=== PATIENT | male | born 1955 | race African-American/Black ===

== ENCOUNTER 2016-03-13 22:36 | Emergency (ER) | payer MEDICARE, MEDICAID ==
[2016-03-13] MEDS ORDERED: LORAZEPAM 1 MG TABLET PO ONE (23:23)
--- NOTE | 2016-03-13 23:23 | ER Document Report ---
ED General - General TRAVEL OUTSIDE OF THE [place] IN LAST 30 DAYS: No <RAJIV DANIELLE - Last Filed: 03/14/16 02:06> <DREA KILGORE - Last Filed: 03/14/16 11:32> - General Chief Complaint: Headache Stated Complaint: BLOOD PRESSURE PROBLEMS Notes: Patient is a 60 -year-old male who initially complains of a headache. When I go to talk to the patient he actually has other complaints. Patient says that he's been very stressed and anxious. He says he has psychiatric illness and is felt very unwell. He says that he broke up with his girlfriend today. He's had a terrible day. He says that he is having thoughts of suicide. He has not been taking his medications. He says the reason why he has a headache is because he is very stressed and anxious. He does not airway his blood pressure medications are. He denies any actual suicide attempts. He says that he needs help in regards to his severe anxiety and depression. No focal weakness or numbness. No fevers. No recent infections. No other complaints at this time. (RAJIV DANIELLE) - Related Data Allergies/Adverse Reactions: No Known Allergies Allergy (Verified 02/16/16 13:03) Past Medical History - Social History Smoking Status: Unknown if Ever Smoked Frequency of alcohol use: None Drug Abuse: None Family History: Reviewed & Not Pertinent Patient has suicidal ideation: No Patient has homicidal ideation: No - Past Medical History Cardiac Medical History: Reports: Hx Hypertension Pulmonary Medical History: Denies: Hx COPD Neurological Medical History: Denies: Hx Seizures Renal/ Medical History: Reports: Hx Kidney Stones Psychiatric Medical History: Reports: Hx Schizophrenia Past Surgical History: Reports: Hx Cholecystectomy, Hx Kidney (Renal Surgery) - Immunizations Hx Diphtheria, Pertussis, Tetanus Vaccination: No <RAJIV DANIELLE - Last Filed: 03/14/16 02:06> Review of Systems <RAJIV DANIELLE - Last Filed: 03/14/16 02:06> <DREA KILGORE - Last Filed: 03/14/16 11:32> - Review of Systems Notes: My Normal Review Basic REVIEW OF SYSTEMS: CONSTITUTIONAL : Denies fever, chills, or sweats. Denies recent illness. EENT: Denies eye, ear, throat, or mouth pain or symptoms. Denies nasal or sinus congestion. CARDIOVASCULAR: Denies chest pain. RESPIRATORY: Denies cough, cold, or chest congestion. Denies shortness of breath, difficulty breathing, or wheezing. GASTROINTESTINAL: Denies abdominal pain. Denies nausea, vomiting, or diarrhea. Denies constipation. Last BM: GENITOURINARY: Denies difficulty urinating, painful urination, burning, frequency, or blood in urine. MUSCULOSKELETAL: Denies neck or back pain or joint pain or swelling. SKIN: Denies rash or skin lesions. NEUROLOGICAL: Denies altered mental status or loss of consciousness. Has a headache. Denies weakness or paralysis or loss of use of either side. Denies problems with gait or speech. Denies sensory or motor loss. Psychiatric: Severe depression, severe anxiety, suicidal ideations. ALL OTHER SYSTEMS REVIEWED AND NEGATIVE. (RAJIV DANIELLE) Physical Exam <RAJIV DANIELLE - Last Filed: 03/14/16 02:06> <DREA KILGORE - Last Filed: 03/14/16 11:32> - Vital signs Vitals: Temp Pulse Resp BP Pulse Ox 97.8 F 61 16 170/93 H 97 03/13/16 22:48 03/13/16 22:48 03/13/16 22:48 03/13/16 22:48 03/13/16 22:48 (RAJIV DANIELLE) (DREA KILGORE) - Notes Notes: General Appearance: Well nourished, alert, cooperative, no acute distress, no obvious discomfort. Very anxious. Patient is shaking from stress and anxiety. He's grinding his teeth during exam. Vitals: reviewed, See vital signs table. Head: no swelling or tenderness to the head Eyes: PERRL, EOMI, Conjuctiva clear Mouth: No decreasd moisture Neck: Supple, no neck tenderness, No thyromegaly Lungs: No wheezing, No rales, No rhonci, No accessory muscle use, good air exchange bilaterally. Heart: Normal rate, Regular rythm, No murmur, no rub Abdomen: Normal BS, soft, No rigidity, No abdominal tenderness, No guarding, no rebound, no abdominal masses, no organomegaly Extremities: strength 5/5 in all extremities, good pulses in all extremities, no swelling or tenderness in the extremities, no edema. Skin: warm, dry, appropriate color, no rash Neuro: speech clear, oriented x 3, normal affect, responds appropriately to questions. Cranial nerves II through XII are intact. Patient saw extremities without difficulty. No focal neurologic deficits on exam. (RAJIV DANIELLE) Course - Laboratory Result Diagrams: 03/13/16 23:48 03/13/16 23:48 <RAJIV DANIELLE - Last Filed: 03/14/16 02:06> - Laboratory Result Diagrams: 03/13/16 23:48 03/13/16 23:48 <DREA KILGORE - Last Filed: 03/14/16 11:32> - Vital Signs Vital signs: Temp Pulse Resp BP Pulse Ox 97.8 F 76 16 154/87 H 97 03/14/16 08:06 03/14/16 08:06 03/14/16 08:06 03/14/16 08:06 03/14/16 08:06 (RAJIV DANIELLE) (DREA KILGORE) - Laboratory Laboratory results interpreted by me: 03/13/16 03/13/16 23:48 23:48 RDW 14.3 H AST 63 H ALT 101 H Salicylates < 1.0 L Acetaminophen < 10 L (DREA KILGORE) - EKG Interpretation by Me Additional EKG results interpreted by me: 03/13/16 23:50 EKG is reviewed and interpreted by me. EKG shows normal sinus rhythm with rate of [address] segment elevation or depression. No ischemic T wave inversions. MI interval, QRS duration, QTC levels are within normal range. Old EKG for comparison is from 02/18/2016. (RAJIV DANIELLE) - Transfer of Care Notes: 03/14/16 02:06 Patient is medically stable for psychiatric evaluation. Patient has severe anxiety and severe depression. He does admit to some suicidal thoughts; however , says that he does not feel he is a capacity to actually kill himself. Patient is showing some improvement after the Ativan. (RAJIV DANIELLE) Discharge <RAJIV DANIELLE - Last Filed: 03/14/16 02:06> <DREA KILGORE - Last Filed: 03/14/16 11:32> - Discharge Clinical Impression: Anxiety, Depression, Schizo affective schizophrenia Condition: Stable Disposition: HOME, SELF-CARE Additional Instructions: Schizophrenia Schizophrenia is a chemical disorder that affects how the brain functions. The exact cause is unknown, but it tends to run in families. It is NOT caused by emotional trauma. Schizophrenia causes disordered thinking, including unusual beliefs and inability to "process" happenings around the patient. Patients with schizophrenia benefit greatly from medicine. These medicines are called antipsychotics. Never stop the medicine without the doctor 's approval. Counselling may help the patient deal with his disease. Schizophrenics require a very ordered environment. Stresses and sudden changes may bring out symptoms. Drugs and alcohol abuse may become problems. Contact the counsellor or crisis line if there are thoughts of suicide or of harming others, or if you become aware of unusual thoughts or beliefs DEPRESSION: Your evaluation reveals that you have mental depression. While symptoms may be vague, they often include disturbance of sleep, fatigue, loss of appetite , and general loss of interest in life. While depression may be a side effect of drugs, or a reaction to a major change in your life, many cases have no known cause. If depression is acute, and related to a major loss in your life, you can expect it to clear completely with time. If you have been depressed a long time , are prone to repeated bouts of depression or low mood, or have been thinking of suicide, get help. Depression can be treated with anti-depressant medication and counselling. Long-term depression will often take a few weeks to clear, even with appropriate medication. Follow-up care is important. SUICIDAL IDEATION: Suicidal ideation is a common medical term for thoughts about suicide, which may be as detailed as a formulated plan, without the suicidal act itself. Although most people who undergo suicidal ideation do not commit suicide, some go on to make suicide attempts. The range of suicidal ideation varies greatly from fleeting to detailed planning, role playing, and unsuccessful attempts. While thoughts about suicide are common, most people do not carry out serious actions to commit suicide. Based upon your evaluation and discussion with you, we do not believe you are currently at risk to act upon your thoughts of suicide. You have agreed to return to the Emergency Department, at any time , if you feel inclined to act upon your suicidal thoughts. FOLLOW-UP CARE: If you have been referred to a physician for follow-up care, call the physician s office for an appointment as you were instructed or within the next two days. If you experience worsening or a significant change in your symptoms, notify the physician immediately or return to the Emergency Department at any time for re-evaluation. Follow-up with [facility] today. Referrals: [facility] [Provider Group] - Follow up as needed
[2016-03-14 00:04] LABS: ABSOLUTE BASOPHILS # (AUTO) 0.1 10^3/uL (0.0-0.2); ABSOLUTE EOSINOPHILS # (AUTO) 0.2 10^3/uL (0.0-0.6); ABSOLUTE LYMPHOCYTES (AUTO) 2.2 10^3/uL (0.5-4.7); ABSOLUTE MONOCYTES (AUTO) 0.8 10^3/uL (0.1-1.4); ABSOLUTE NEUT (AUTO) 4.3 10^3/uL (1.7-8.2); BASOPHILS % (AUTO) 0.8 % (0-2); EOSINOPHILS % (AUTO) 3.2 % (0-6); HEMATOCRIT 41.7 % (37.9-51.0); HEMOGLOBIN 14.5 g/dL (13.5-17.0); HGB HCT DIFFERENCE 1.8; LYMPHOCYTES % (AUTO) 28.3 % (13-45); MEAN CORPUSCULAR HEMOGLOBIN 31.3 pg (27.0-33.4); MEAN CORPUSCULAR HGB CONC 34.9 g/dL (32.0-36.0); MEAN CORPUSCULAR VOLUME 90 fl (80-97); MONOCYTES % (AUTO) 11.2 % (3-13); RED BLOOD COUNT 4.65 10^6/uL (4.35-5.55); RED CELL DISTRIBUTION WIDTH 14.3 % (11.5-14.0); SEGMENTED NEUTROPHILS % (AUTO) 56.5 % (42-78); WHITE BLOOD COUNT 7.6 10^3/uL (4.0-10.5)
[2016-03-14 00:14] LABS: ALANINE AMINOTRANSFERASE 101 U/L (21-72); ALBUMIN 4.3 g/dL (3.5-5.0); ALKALINE PHOSPHATASE 95 U/L (38-126); ANION GAP 13 (5-19); ASPARTATE AMINO TRANSFERASE 63 U/L (17-59); BILIRUBIN,TOTAL 0.6 mg/dL (0.2-1.3); BLOOD UREA NITROGEN 11 mg/dL (7-20); CALCIUM 9.3 mg/dL (8.4-10.2); CARBON DIOXIDE 22 mmol/L (22-30); CHLORIDE 103 mmol/L (98-107); CREATININE RESULT 0.93 mg/dL (0.52-1.25); GLUCOSE 102 mg/dL (75-110); SODIUM 138.2 mmol/L (137-145)
[2016-03-14 00:15] LABS: ALCOHOL < 10 mg/dL (NONE DETECTED)
[2016-03-14 00:29] LABS: APPEARANCE,URINE CLEAR; BILIRUBIN,URINE NEGATIVE (NEGATIVE); GLUCOSE, URINE NEGATIVE (NEGATIVE); KETONES,URINE NEGATIVE (NEGATIVE); LEUKOCYTE ESTERASE,URINE NEGATIVE (NEGATIVE); NITRITE,URINE NEGATIVE (NEGATIVE); PROTEIN,URINE NEGATIVE (NEGATIVE); URINE SPECIFIC GRAVITY 1.003; UROBILINOGEN,URINE NEGATIVE mg/dL (<2.0)
[2016-03-14 00:42] LABS: URINE BARBITURATES SCREEN NEGATIVE; URINE METHADONE SCREEN NEGATIVE; URINE PHENCYCLIDINE SCREEN NEGATIVE
--- NOTE | 2016-03-14 10:13 | ER Document Report ---
Doctor's Note Notes: 03/14/16 10:10 Rounds: Chart reviewed and patient interview. Patient seems to be rather anxious. However, he is mentally clear and alert and talkative, answering questions appropriately. Patient is being evaluated for depression and suicidal thoughts as well as feeling very stressed and anxious. Patient has medications for these conditions at home. Has a history of high blood pressure. Blood pressure this morning is 154/87 on no medicines for blood pressure since arrival here. Lab studies show very minimal, likely clinically insignificant LFT elevation which could be related to medications, alcohol, viral illness, etc. Patient appears to be medically stable for transfer or discharge. I am told that mental health will likely recommend discharging the patient. Patient says he would like to go to [facility]. Huber Salazar M.D. 03/14/16 11:32 Mental health has assessed the patient feels that he can be treated as an outpatient at [facility]. This is his eighth or more visits here in the past 7 or 8 months, all of them having somewhat similar theme. Even though patient expresses a preference for going to be admitted at [facility], mental health believes that he can be managed as an outpatient and is not a danger of risk to himself or others. Huber Salazar M.D.
--- NOTE | 2016-03-14 10:21 | PSYCHOLOGICAL NOTE ---
Psych Note - Psych Note Psych Note: Patient is a 60 year old male who presented last night via EMS with c/o headache and anxiety. Patient is well known to this clinician and this Department for multiple prior episodes. Patient this morning states he is here because he has no one to talk to. Patient states yesterday he had to go to [employer] and ask to speak with the Digital Advertising Analyst because he was alone and needed to talk. Patient states he feels better this morning. Patient states it helped to talk. Patient endorses continued treatment via [facility]. Patient denies contacting them for assistance yesterday. Patient states 2015 was a difficult year, and that it was difficult due to his own choices, to include watching pornography. Patient states he began engaging with this habit around 1 month ago. Patient states he is a grown man, and has sexual needs. He states the last time he had sex was 1996 with prostitutes. Patient reports he would be "ok" if he had someone to talk to. He states someone can be in the same room, but not really listening. Patient encouraged to contact his ACTT provider during these instances. Patient denies wanting to harm himself or anyone else. Patient denies feeling like he cannot return to his home. Note this is significant because in the past he will be paranoid about something going on his apartment and refuse to return. Patient does talk about his past few weeks and his increase in depressive symptoms, to include not caring for himself (food, hygiene, etc); however, states he has come out of that stage and has been caring for himself. Patient requests a male crayon sawyer bedside. Patient denies suicidal/homicidal ideations. Patient reports he has his medications, and is willing to contact his [facility] [employer]. Patient is A&O. Mood is hypomanic with congruent affect. Patient denies suicidal/homicidal ideations, intent, plan, or means. Patient denies A/V H. Thought processes were mostly organized. Conversational speech was WNL for this patient (quiet/soft). Intellectual abilities were estimated within average range. Attention and focus were fair. Insight, judgment, and impulse control were fair. 295.70 (F25.0) Schizoaffective Disorder, Bipolar Type by history 799.59 (R41.9) Unspecified Neurocognitive Disorder Patient's presenting symptoms are similar to that of a neurocognitive disorder and cause clinically significant distress in all domains of his life At this time and in this setting (ER) there is not enough information to make a more specific diagnosis (head CT suggestive of age related involutional changes) Patient is psychiatrically cleared for discharge. Patient is considered to be at his baseline functioning, and denies wanting to harm anyone or himself. Patient is again encouraged to follow up with Neurology. Patient is encouraged to continue to engage in his ACTT services and utilize them when he needs to talk. While discussing with patient his plan of care, patient disclosed he is "in a bad spot" and wants to go to [place]. Discussed with patient that he can chose to do so voluntarily, possibly via his ACT Team; however, the purpose of the ED is to pursue inpatient for IVC status patients. Note, patient is voluntary. Discussed with patient his numerous prior episodes, most of which document his attempts at sabotaging his discharge by reporting SI or making vague statements regarding his safety upon discharge. Note, this is well documented throughout patient's chart from October 03, 2015. I consulted with Dr. Null in regards to the care and management of this patient.
[2016-03-14] MEDS ORDERED: OLANZAPINE 5 MG TABLET PO ONE (10:39)
[2016-03-14 11:40] VITALS: BP 150/82
--- NOTE | 2016-03-14 13:43 | EKG REPORT ---
SEVERITY:- BORDERLINE ECG - SINUS RHYTHM BORDERLINE T ABNORMALITIES, INFERIOR LEADS : Confirmed by: Alisson Andrade MD 14-Mar-2016 13:42:07
== END 2016-03-14 11:37 | disposition home or self-care (01) ==
LOC: ER 22:36
DX: F32.9 Major depressive disorder, single episode, unspecified (principal); F41.9 Anxiety disorder, unspecified; F25.9 Schizoaffective disorder, unspecified; R45.851 Suicidal ideations; F43.9 Reaction to severe stress, unspecified; I10 Essential (primary) hypertension; R79.89 Other specified abnormal findings of blood chemistry; R51 Headache; Z91.14 Patient's other noncompliance with medication regimen
CPT/HCPCS: 93005; 99285; 36415; 80307 ×4; 85025; 80053; 81001; 93010; A9270 ×2

== ENCOUNTER 2016-03-19 04:40 | Emergency (ER) | payer MEDICARE, MEDICAID ==
[2016-03-19] MEDS ORDERED: LORAZEPAM 1 MG TABLET PO ONE (06:16)
[2016-03-19] MEDS ORDERED: IBUPROFEN 800 MG TABLET PO ONE (06:16)
--- NOTE | 2016-03-19 06:39 | ER Document Report ---
ED General - General Chief Complaint: Headache Stated Complaint: HEADACHE Mode of Arrival: Ambulatory Information source: Patient Notes: 60 yr old male presents with hx of anxiety depression and htn with complaints of headache and feeling anxious. pt notes that he does not take his bp meds the way he is supposed ot, notes he does not know which one it is. pt did not take his bp at home, felt anxious, didnt have tylenol and wanted to come in to get tylenol. Pt denies this being the worst headache, denies any neuro deficits. TRAVEL OUTSIDE OF THE [place] IN LAST 30 DAYS: No - HPI Onset: Other - 3 day duration Onset/Duration: Persistent Quality of pain: Pressure Severity: Mild Pain Level: 1 Associated symptoms: Headache Exacerbated by: Denies Relieved by: Denies Similar symptoms previously: Yes Recently seen / treated by doctor: Yes - Related Data Allergies/Adverse Reactions: No Known Allergies Allergy (Verified 02/16/16 13:03) Past Medical History - Social History Smoking Status: Unknown if Ever Smoked Cigarette use (# per day): No Chew tobacco use (# tins/day): No Smoking Education Provided: No Family History: Reviewed & Not Pertinent Patient has suicidal ideation: No Patient has homicidal ideation: No - Past Medical History Cardiac Medical History: Reports: Hx Hypertension Pulmonary Medical History: Denies: Hx COPD Neurological Medical History: Denies: Hx Seizures Renal/ Medical History: Reports: Hx Kidney Stones. Denies: Hx Peritoneal Dialysis Psychiatric Medical History: Reports: Hx Schizophrenia Past Surgical History: Reports: Hx Cholecystectomy, Hx Kidney (Renal Surgery) - Immunizations Hx Diphtheria, Pertussis, Tetanus Vaccination: No Review of Systems - Review of Systems Notes: REVIEW OF SYSTEMS: CONSTITUTIONAL : Denies fever, chills, or sweats. Denies recent illness. EENT: Denies eye, ear, throat, or mouth pain or symptoms. Denies nasal or sinus congestion or discharge. Denies throat, tongue, or mouth swelling or difficulty swallowing. CARDIOVASCULAR: Denies chest pain. Denies palpitations or racing or irregular heart beat. Denies ankle edema. RESPIRATORY: Denies cough, cold, or chest congestion. Denies shortness of breath, difficulty breathing, or wheezing. GASTROINTESTINAL: Denies abdominal pain or distention. Denies nausea, vomiting , or diarrhea. Denies blood in vomitus, stools, or per rectum. Denies black, tarry stools. Denies constipation. GENITOURINARY: Denies difficulty urinating, painful urination, burning, frequency, blood in urine, or discharge. MUSCULOSKELETAL: Denies back or neck pain or stiffness. Denies joint pain or swelling. SKIN: Denies rash, lesions or sores. HEMATOLOGIC : Denies easy bruising or bleeding. LYMPHATIC: Denies swollen, enlarged glands. NEUROLOGICAL: Admits to mild headache PSYCHIATRIC: Admits to anxiety ALL OTHER SYSTEMS REVIEWED AND NEGATIVE. Dictation was performed using [employer] voice recognition software PHYSICAL EXAMINATION: GENERAL: Well-appearing, well-nourished and in no acute distress. HEAD: Atraumatic, normocephalic. EYES: Pupils equal round and reactive to light, extraocular movements intact, sclera anicteric, conjunctiva are normal. ENT: Nares patent, oropharynx clear without exudates. Moist mucous membranes. NECK: Normal range of motion, supple without lymphadenopathy LUNGS: Breath sounds clear to auscultation bilaterally and equal. No wheezes rales or rhonchi. HEART: Regular rate and rhythm without murmurs ABDOMEN: Soft, nontender, nondistended abdomen. No guarding, no rebound. No masses appreciated. Musculoskeletal: Normal range of motion, no pitting or edema. No cyanosis. NEUROLOGICAL: Cranial nerves grossly intact. Normal speech, normal gait. Normal sensory, motor exams PSYCH: Patient appears anxious SKIN: Warm, Dry, normal turgor, no rashes or lesions noted. Physical Exam - Vital signs Vitals: Temp Pulse Resp BP Pulse Ox 98.4 F 97 23 H 174/104 H 99 03/19/16 04:48 03/19/16 04:48 03/19/16 04:48 03/19/16 04:48 03/19/16 04:48 Course - Re-evaluation Re-evalutation: 03/19/16 06:[address] of the head was ordered given patient's presenting complaint of headache however the patient himself admits that this is a mild headache and he just wishes to have Tylenol. Denies any neurological deficits. It appears patient is issues are more psychiatric in nature, his blood pressure is stable at this time. Patient will be treated for his headache and anxiety 03/19/16 06:59 Patient symptoms have improved significantly, I will discharge home at this time After performing a Medical Screening Examination, I estimate there is LOW risk for ACUTE GLAUCOMA, TEMPORAL ARTERITIS, MENINGITIS, INCRANIAL HEMORRHAGE, or ISCHEMIC STROKE thus I consider the discharge disposition reasonable. The patient and I have discussed the diagnosis and risks, and we agree with discharging home with close follow-up with the understanding that symptoms and presentations can change. We also discussed returning to the Emergency Department immediately if new or worsening symptoms occur. We have discussed the symptoms which are most concerning (e.g., changing or worsening symptoms, new numbness or weakness, vomiting, fever) that necessitate immediate return. - Vital Signs Vital signs: Temp Pulse Resp BP Pulse Ox 98.4 F 97 23 H 174/104 H 99 03/19/16 04:48 03/19/16 04:48 03/19/16 04:48 03/19/16 04:48 03/19/16 04:48 Discharge - Discharge Clinical Impression: Anxiety Headache Qualifiers: Headache type: unspecified Headache chronicity pattern: episodic headache Intractability: not intractable Qualified Code(s): R51 - Headache HTN (hypertension) Qualifiers: Hypertension type: essential hypertension Qualified Code(s): I10 - Essential ( primary) hypertension Condition: Stable Disposition: HOME, SELF-CARE Instructions: Headache ([facility]) Additional Instructions: Follow up with your physician tomorrow for further care or return to the ED IMMEDIATELY if symptoms worsen or new concerns occur
[2016-03-19] MEDS ORDERED: CLONIDINE HCL 0.1 MG TABLET PO ONE (07:00)
[2016-03-19 07:42] VITALS: BP 161/87
== END 2016-03-19 07:48 | disposition home or self-care (01) ==
LOC: ER 04:40
DX: R51 Headache (principal); I10 Essential (primary) hypertension; Z91.14 Patient's other noncompliance with medication regimen; F41.9 Anxiety disorder, unspecified
CPT/HCPCS: 99283; A9270 ×3

== ENCOUNTER 2016-03-24 07:27 | Emergency (ER) | payer MEDICARE, MEDICAID ==
--- NOTE | 2016-03-24 08:30 | ER Document Report ---
ED Psych Disorder / Suicide - General Mode of Arrival: Ambulatory Information source: Patient TRAVEL OUTSIDE OF THE U[place] IN LAST 30 DAYS: No - HPI Patient complains to provider of: Other - Depression Onset: Other - since 2016 Suicide Risk Factors: Depressed, Male Associated symptoms: Other - see above <SHELTON MONTERO - Last Filed: 03/24/16 08:22> <TOMMY HARRISON - Last Filed: 03/24/16 15:01> - General Chief Complaint: Psych Problem Stated Complaint: SUICIDAL IDEATIONS Notes: 60 year old male with history of depression presents to the ED complaining of difficulty sleeping and depression. Patient states that his depression started in 2016 and has been seeing Dr. Raygoza in [place] for "15 minute psychiatric" evaluations, but states that it isn't helping. Patient explains that he needs psychiatric help "right away." Patient states that he is going up to random strangers and talking to them about her depression, breaking up with his girlfriend, and pornography. Patient states that he "feels very dangerous." ( SHELTON MONTERO) - Related Data Allergies/Adverse Reactions: No Known Allergies Allergy (Verified 02/16/16 13:03) Past Medical History - General Information source: Patient - Social History Smoking Status: Unknown if Ever Smoked Family History: Reviewed & Not Pertinent - Past Medical History Cardiac Medical History: Reports: Hx Hypertension Renal/ Medical History: Reports: Hx Kidney Stones Psychiatric Medical History: Reports: Hx Depression, Hx Schizophrenia Past Surgical History: Reports: Hx Cholecystectomy, Hx Kidney (Renal Surgery) - Immunizations Hx Diphtheria, Pertussis, Tetanus Vaccination: No <SHELTON MONTERO - Last Filed: 03/24/16 08:22> Review of Systems - Review of Systems Constitutional: No symptoms reported EENT: No symptoms reported Cardiovascular: No symptoms reported Respiratory: No symptoms reported Gastrointestinal: No symptoms reported Genitourinary: No symptoms reported Male Genitourinary: No symptoms reported Musculoskeletal: No symptoms reported Skin: No symptoms reported Hematologic/Lymphatic: No symptoms reported Neurological/Psychological: See HPI, Depression, Anxiety, Other - Difficulty sleeping -: Yes All other systems reviewed and negative <SHELTON MONTERO - Last Filed: 03/24/16 08:22> Physical Exam - General General appearance: Alert, Anxious, Other - Unable to sit still. In distress: None - HEENT Head: Normocephalic, Atraumatic Eyes: Normal Extraocular movements intact: Yes Pupils: PERRL - Respiratory Respiratory status: No respiratory distress Breath sounds: Normal - Cardiovascular Rhythm: Regular Heart sounds: Normal auscultation - Abdominal Inspection: Normal - Back Back: Normal - Extremities General upper extremity: Normal inspection, Normal ROM General lower extremity: Normal inspection, Normal ROM - Neurological Neuro grossly intact: Yes - Psychological Associated symptoms: Anxious - Skin Skin Temperature: Warm Skin Moisture: Dry Skin Color: Normal <SHELTON MONTERO - Last Filed: 03/24/16 08:22> Course <SHELTON MONTERO - Last Filed: 03/24/16 08:22> - Laboratory Result Diagrams: 03/24/16 07:45 03/24/16 07:45 - EKG Interpretation by Fl EKG shows normal: Sinus rhythm, [place], Intervals, QRS Complexes. abnormal: ST-T Waves - Nonspecific lateral T abnormalities Rate: Normal Rhythm: NSR <TOMMY HARRISON - Last Filed: 03/24/16 15:01> - Re-evaluation Re-evalutation: 03/24/16 14:54 See the psychology report. The patient did have what appeared to be involuntary twitching initially which seems to have resolved after the Cogentin. This was suggested he has been noncompliant with his medications. (TOMMY HARRISON) - Vital Signs Vital signs: Temp Pulse Resp BP Pulse Ox 97.9 F 76 20 140/84 H 97 03/24/16 12:00 03/24/16 12:00 03/24/16 12:00 03/24/16 12:00 03/24/16 12:00 - Laboratory Laboratory results interpreted by me: 03/24/16 03/24/16 07:45 07:45 Chloride 110 H Carbon Dioxide 17 L Urine Blood SMALL H Salicylates < 1.0 L Acetaminophen < 10 L Discharge <SHELTON MONTERO - Last Filed: 03/24/16 08:22> <TOMMY HARRISON - Last Filed: 03/24/16 15:01> - Discharge Clinical Impression: Anxiety Condition: Stable Disposition: HOME, SELF-CARE Additional Instructions: FOLLOW UP WITH YOUR ACT TEAM THIS WEEK. Referrals: BRYANNA PERSON MD [Primary Care Provider] - Follow up as needed Scribe Attestation: 03/24/16 14:52 I personally performed the services described in the documentation, reviewed and edited the documentation which was dictated to the scribe in my presence, and it accurately records my words and actions. (TOMMY HARRISON) Scribe Documentation - Scribe Written by Scrsvetlana:: Sejal Jimenez, 03/24/2016 08:34 acting as scribe for :: Autumn <SHELTON MONTERO - Last Filed: 03/24/16 08:22>
[2016-03-24 08:56] LABS: ABSOLUTE EOSINOPHILS # (AUTO) 0.2 10^3/uL (0.0-0.6); ABSOLUTE LYMPHOCYTES (AUTO) 1.6 10^3/uL (0.5-4.7); ABSOLUTE MONOCYTES (AUTO) 0.8 10^3/uL (0.1-1.4); BASOPHILS % (AUTO) 0.5 % (0-2); EOSINOPHILS % (AUTO) 2.6 % (0-6); HEMATOCRIT 46.6 % (37.9-51.0); HEMOGLOBIN 15.4 g/dL (13.5-17.0); HGB HCT DIFFERENCE -0.4; LYMPHOCYTES % (AUTO) 21.1 % (13-45); MEAN CORPUSCULAR HEMOGLOBIN 30.5 pg (27.0-33.4); MEAN CORPUSCULAR VOLUME 92 fl (80-97); MONOCYTES % (AUTO) 10.5 % (3-13); RED BLOOD COUNT 5.04 10^6/uL (4.35-5.55); RED CELL DISTRIBUTION WIDTH 13.9 % (11.5-14.0); SEGMENTED NEUTROPHILS % (AUTO) 65.3 % (42-78); WHITE BLOOD COUNT 7.7 10^3/uL (4.0-10.5)
[2016-03-24 09:01] LABS: ALANINE AMINOTRANSFERASE 50 U/L (21-72); ALBUMIN 4.5 g/dL (3.5-5.0); ALCOHOL < 10 mg/dL (NONE DETECTED); ALKALINE PHOSPHATASE 99 U/L (38-126); ANION GAP 16 (5-19); ASPARTATE AMINO TRANSFERASE 23 U/L (17-59); BILIRUBIN,TOTAL 0.7 mg/dL (0.2-1.3); BLOOD UREA NITROGEN 14 mg/dL (7-20); CALCIUM 9.2 mg/dL (8.4-10.2); CARBON DIOXIDE 17 mmol/L (22-30); CHLORIDE 110 mmol/L (98-107); CREATININE RESULT 1.03 mg/dL (0.52-1.25); GLUCOSE 87 mg/dL (75-110); POTASSIUM 3.8 mmol/L (3.6-5.0); SODIUM 142.9 mmol/L (137-145); TOTAL PROTEIN 7.1 g/dL (6.3-8.2)
[2016-03-24] MEDS ORDERED: ACETAMINOPHEN 325 MG TABLET PO ONE (09:13)
[2016-03-24 09:51] LABS: APPEARANCE,URINE CLEAR; BILIRUBIN,URINE NEGATIVE (NEGATIVE); GLUCOSE, URINE NEGATIVE (NEGATIVE); KETONES,URINE NEGATIVE (NEGATIVE); LEUKOCYTE ESTERASE,URINE NEGATIVE (NEGATIVE); NITRITE,URINE NEGATIVE (NEGATIVE); PROTEIN,URINE NEGATIVE (NEGATIVE); URINE SPECIFIC GRAVITY 1.015; UROBILINOGEN,URINE NEGATIVE mg/dL (<2.0)
[2016-03-24 10:06] LABS: URINE BARBITURATES SCREEN NEGATIVE; URINE METHADONE SCREEN NEGATIVE; URINE PHENCYCLIDINE SCREEN NEGATIVE
--- NOTE | 2016-03-24 11:08 | EKG REPORT ---
SEVERITY:- ABNORMAL ECG - SINUS RHYTHM NONSPECIFIC T ABNORMALITIES, LATERAL LEADS : Confirmed by: Arian Roper MD 24-Mar-2016 11:07:13
[2016-03-24] MEDS ORDERED: DIVALPROEX SODIUM 250 MG TABLET.DR PO ONE (11:42)
[2016-03-24] MEDS ORDERED: BENZTROPINE MESYLATE INJ 2 MG/2 ML AMPULE IM SCH (11:45)
[2016-03-24] MEDS ORDERED: BENZTROPINE MESYLATE INJ 2 MG/2 ML AMPULE IM ONE (12:15)
[2016-03-24 12:23] VITALS: BP 140/84
--- NOTE | 2016-03-24 12:54 | PSYCHOLOGICAL NOTE ---
Psych Note - Psych Note Psych Note: Patient presented to [facility] ED complaining of difficulty sleeping and depression. This patient is well known to this clinician and department. Patient states that he is not doing well. He broke up with his girlfriend and his back to porn. He states that he feels like he is going crazy, and needs someone to talk to. He continued to state that "I don't want to hurt myself but I don't want to keep living." Patient states that the voices inside her getting worse, and while they abnormally quoted scriptures from the Bible they' re starting to get jumbled he is unable to think clearly; "I'm in a state of confusion." Patient states that food helps a little bit however not much. Patient denies taking any medication other than his heart medication. Patient states that he is lonely and needs a professional to talk to. Patient continued to attempt to discuss with clinician's lack of sex life and concerns of his use of porn. Patient is alert and orientated to person place time and circumstance. Mood is dysphoric with restricted affect. Patient endorses suicidal ideation stating he doesn't want to live anymore however denies having a plan or the ability to hurt himself. Patient denies homicidal ideation; no delusions are noted. Thought process is organized. Conversational speech was within normal rate and tone prosody. Eye contact was well maintained. Intellectual abilities within normal range. Attention and concentration are fair. Insight, judgment, impulse control are historically poor. 295.70 (F25.0) Schizoaffective Disorder, Bipolar Type by history 799.59 (R41.9) Unspecified Neurocognitive Disorder Patient's presenting symptoms are similar to that of a neurocognitive disorder and cause clinically significant distress in all domains of his life At this time and in this setting (ER) there is not enough information to make a more specific diagnosis (head CT suggestive of age related involutional changes) Impression/ Plan: Patient is psychiatrically cleared for discharge. Patient is considered to be at his baseline functioning, and denies wanting to harm anyone or himself. Patient is again encouraged to follow up with Neurology. Patient is encouraged to continue to engage in his ACTT services and utilize them when he needs to talk. While discussing with patient his plan of care, patient disclosed he "needs help" that he is "in a state of confusion" and "needs inpatient treatment to talk with someone." Discussed with patient that he can chose to do so voluntarily, possibly via his ACT Team; however, the purpose of the ED is to pursue inpatient for IVC status patients. Note, patient is voluntary and the process for ED, IVC and long term care pharmacist treatment has been explained to the patient and his ACT senior biostatistician/group leader on multiple prior visits. I consulted with Dr. Null in regards to the care and management of this patient. Attending physician is in agreement with recommendations and disposition.
[2016-03-24] MEDS ORDERED: DIVALPROEX SODIUM 250 MG TABLET.DR PO SCH (18:00)
[2016-03-24] MEDS ORDERED: BUSPIRONE HCL 10 MG TABLET PO SCH (22:00)
[2016-03-25] MEDS ORDERED: BENZTROPINE MESYLATE INJ 2 MG/2 ML AMPULE IM SCH (10:00)
== END 2016-03-24 15:10 | disposition home or self-care (01) ==
LOC: ER 07:27
DX: F41.9 Anxiety disorder, unspecified (principal); R45.851 Suicidal ideations; F32.9 Major depressive disorder, single episode, unspecified
CPT/HCPCS: 93005; 99285; 96372; 36415; 80307 ×4; 85025; 80053; 81001; 93010; A9270 ×2; J0515

== ENCOUNTER 2016-03-26 09:43 | Emergency (ER) | payer MEDICARE, MEDICAID ==
--- NOTE | 2016-03-26 11:37 | ER Document Report ---
ED General - General Chief Complaint: anxiety and depression Stated Complaint: ANXIETY Mode of Arrival: Ambulatory Information source: Patient Notes: 60 yr old male with hx of schizoeffective disorder who has presented multiple times recently for htn, headache, anxiety presetns today again for anxiety. pt denies any suicidal or homicidal ideations. denies any other concerns TRAVEL OUTSIDE OF THE [place].S[place] IN LAST 30 DAYS: No - HPI Onset: Other Onset/Duration: Persistent Quality of pain: No pain Severity: None Pain Level: Denies Associated symptoms: None Exacerbated by: Denies Relieved by: Denies Similar symptoms previously: Yes Recently seen / treated by doctor: Yes - Related Data Allergies/Adverse Reactions: No Known Allergies Allergy (Verified 02/16/16 13:03) Past Medical History - Social History Smoking Status: Unknown if Ever Smoked Cigarette use (# per day): No Chew tobacco use (# tins/day): No Smoking Education Provided: No Family History: Reviewed & Not Pertinent Patient has suicidal ideation: No Patient has homicidal ideation: No - Past Medical History Cardiac Medical History: Reports: Hx Hypertension Pulmonary Medical History: Denies: Hx COPD Neurological Medical History: Denies: Hx Seizures Renal/ Medical History: Reports: Hx Kidney Stones. Denies: Hx Peritoneal Dialysis Psychiatric Medical History: Reports: Hx Depression, Hx Schizophrenia Past Surgical History: Reports: Hx Cholecystectomy, Hx Kidney (Renal Surgery) - Immunizations Hx Diphtheria, Pertussis, Tetanus Vaccination: No Review of Systems - Review of Systems Notes: REVIEW OF SYSTEMS: CONSTITUTIONAL : Denies fever, chills, or sweats. Denies recent illness. EENT: Denies eye, ear, throat, or mouth pain or symptoms. Denies nasal or sinus congestion or discharge. Denies throat, tongue, or mouth swelling or difficulty swallowing. CARDIOVASCULAR: Denies chest pain. Denies palpitations or racing or irregular heart beat. Denies ankle edema. RESPIRATORY: Denies cough, cold, or chest congestion. Denies shortness of breath, difficulty breathing, or wheezing. GASTROINTESTINAL: Denies abdominal pain or distention. Denies nausea, vomiting , or diarrhea. Denies blood in vomitus, stools, or per rectum. Denies black, tarry stools. Denies constipation. GENITOURINARY: Denies difficulty urinating, painful urination, burning, frequency, blood in urine, or discharge. MUSCULOSKELETAL: Denies back or neck pain or stiffness. Denies joint pain or swelling. SKIN: Denies rash, lesions or sores. HEMATOLOGIC : Denies easy bruising or bleeding. LYMPHATIC: Denies swollen, enlarged glands. NEUROLOGICAL: Admits to mild headache requesting, PSYCHIATRIC: Admits anxiety ALL OTHER SYSTEMS REVIEWED AND NEGATIVE. Dictation was performed using ePAR voice recognition software PHYSICAL EXAMINATION: GENERAL: Well-appearing, well-nourished and in no acute distress. HEAD: Atraumatic, normocephalic. EYES: Pupils equal round and reactive to light, extraocular movements intact, sclera anicteric, conjunctiva are normal. ENT: Nares patent, oropharynx clear without exudates. Moist mucous membranes. NECK: Normal range of motion, supple without lymphadenopathy LUNGS: Breath sounds clear to auscultation bilaterally and equal. No wheezes rales or rhonchi. HEART: Regular rate and rhythm without murmurs ABDOMEN: Soft, nontender, nondistended abdomen. No guarding, no rebound. No masses appreciated. Musculoskeletal: Normal range of motion, no pitting or edema. No cyanosis. NEUROLOGICAL: Cranial nerves grossly intact. Normal speech, normal gait. Normal sensory, motor exams PSYCH: Normal mood, normal affect. SKIN: Warm, Dry, normal turgor, no rashes or lesions noted. Physical Exam - Vital signs Vitals: Temp Pulse Resp BP Pulse Ox 97.9 F 84 20 144/90 H 99 03/26/16 09:50 03/26/16 09:50 03/26/16 09:50 03/26/16 09:50 03/26/16 09:50 Course - Re-evaluation Re-evalutation: 03/26/16 11:37 Mental health has been counseled, patient appears to have a court date tomorrow 03/26/16 13:10 Patient value by mental health they believe he is stable for discharge I agree with this assessment After performing a Medical Screening Examination, I estimate there is LOW risk for ACUTE CORONARY SYNDROME, RESPIRATORY FAILURE, SEPSIS OR MENINGITIS, thus I consider the discharge disposition reasonable. The patient and I have discussed the diagnosis and risks, and we agree with discharging home with close follow- up. We also discussed returning to the Emergency Department immediately if new or worsening symptoms occur. We have discussed the symptoms which are most concerning (e.g., changing or worsening pain, trouble swallowing or breathing, neck stiffness, fever) that necessitate immediate return. - Vital Signs Vital signs: Temp Pulse Resp BP Pulse Ox 97.9 F 84 20 144/90 H 99 03/26/16 09:50 03/26/16 09:50 03/26/16 09:50 03/26/16 09:50 03/26/16 09:50 Discharge - Discharge Clinical Impression: Anxiety Headache Qualifiers: Headache type: unspecified Headache chronicity pattern: episodic headache Intractability: not intractable Qualified Code(s): R51 - Headache Condition: Stable Disposition: HOME, SELF-CARE Instructions: Anxiety ([facility]) Referrals: BRYANNA PERSON MD [Primary Care Provider] - Follow up in 3-5 days
[2016-03-26] MEDS ORDERED: ACETAMINOPHEN 325 MG TABLET PO ONE (11:38)
--- NOTE | 2016-03-26 14:19 | PSYCHOLOGICAL NOTE ---
Psych Note - Psych Note Psych Note: Patient is a 60 year old male who presents via EMS, after he was picked up at [facility] with c/o anxiety. Patient is familiar to both this clinician and Department for numerous prior episodes of similar etiology. Patient today states he went to the [facility], per his usual routine and used their restroom. He states in the restroom he nearly suffered a syncopal episode. He states he is anxious, and cannot take it. Patient states he has no one to talk to or help him. Discussed with patient that he has his ACT Team, but the patient reported they do not work on the weekends. Advised patient that this was not true and that they are available to him 24/09 (in some [facility]) per their service definition. Discussed with patient what he felt would help him, which he reported going to [facility]. Discussed with patient that he would not be sent to [facility] at this time as he does not meet criteria for IVC. Discussed with patient precipitating factors which may be increasing his anxiety. Patient was guarded with this information; however, it was reported by EMS that the patient has court tomorrow for a previous charge. Patient did eventuall acknowledge that the court date was increasing his anxiety. Discussed with patient that he was experiencing a reasonable reaction to a stressful event , and should look towards his professional supports for guidance. Patient requested I contact his ACT Team. [facility] ACTT worker (Dionne) advised patient is here and the surrounding circumstances. Worker reports an ACT job change crew member would present to the ED and assist patient home. Patient is A&Ox4. Mood was anxious, per patient with normal affect. Patient reported suicidal ideations, but denied plan or means, or intent. Patient denied homicidal ideations, intent, plan, or means. Patient denied A/V H; delusions not noted.Thought processes were goal oriented towards staying in the ED. Conversational speech was WNL for this patient. Intellectual abilities were estimated within average range. Attention and focus were fair. Insight, judgment, and impulse control were poor. 295.70 (F25.0) Schizoaffective Disorder, Bipolar Type by history 799.59 (R41.9) Unspecified Neurocognitive Disorder Patient's presenting symptoms are similar to that of a neurocognitive disorder and cause clinically significant distress in all domains of his life At this time and in this setting (ER) there is not enough information to make a more specific diagnosis (head CT suggestive of age related involutional changes) Impression/ Plan: Patient is psychiatrically cleared for discharge. Patient is considered to be at his baseline functioning, and denies wanting to harm anyone or himself. Patient presents calm; however, when this clinician entered the room patient began shaking his foot and reporting anxiety. Patient is quite organized with his presentation and goal oriented towards remaining in the ED. Discussed with patient his court date tomorrow and informed him that his ACTT provider should be kept informed and able to assist. Note, this service is available to the patient 24/09. His provider, ANABELLA was contacted and coordinated follow up care. Patient was also encouraged to follow up with Neurology. I consulted with Dr. Null in regards to the care and management of this patient. ED MD is in agreement with disposition and recommendations. Note, patient provided psychoeducation regarding the misuse of the emergency medical systems and mental health systems to meet his basic needs.
[2016-03-26 14:44] VITALS: BP 151/89
== END 2016-03-26 14:46 | disposition home or self-care (01) ==
LOC: ER 09:43
DX: F41.9 Anxiety disorder, unspecified (principal); R51 Headache; F32.9 Major depressive disorder, single episode, unspecified
CPT/HCPCS: 99284; A9270

== ENCOUNTER 2016-04-07 15:51 | Emergency (ER) | payer MEDICARE, MEDICAID ==
[2016-04-07] MEDS ORDERED: ASPIRIN 81 MG TABLET, CHEWABLE PO ONE (15:53)
[2016-04-07 16:43] LABS: ABSOLUTE BASOPHILS # (AUTO) 0.1 10^3/uL (0.0-0.2); ABSOLUTE MONOCYTES (AUTO) 0.8 10^3/uL (0.1-1.4); ABSOLUTE NEUT (AUTO) 8.3 10^3/uL (1.7-8.2); BASOPHILS % (AUTO) 0.6 % (0-2); EOSINOPHILS % (AUTO) 0.3 % (0-6); HEMATOCRIT 49.7 % (37.9-51.0); HEMOGLOBIN 16.8 g/dL (13.5-17.0); HGB HCT DIFFERENCE 0.7; LYMPHOCYTES % (AUTO) 10.1 % (13-45); MEAN CORPUSCULAR HEMOGLOBIN 30.4 pg (27.0-33.4); MEAN CORPUSCULAR HGB CONC 33.8 g/dL (32.0-36.0); MEAN CORPUSCULAR VOLUME 90 fl (80-97); MONOCYTES % (AUTO) 7.6 % (3-13); RED BLOOD COUNT 5.52 10^6/uL (4.35-5.55); RED CELL DISTRIBUTION WIDTH 13.4 % (11.5-14.0); SEGMENTED NEUTROPHILS % (AUTO) 81.4 % (42-78); WHITE BLOOD COUNT 10.2 10^3/uL (4.0-10.5)
[2016-04-07] MEDS ORDERED: NORMAL SALINE 1000 ML 1,000 ML IV PRN (16:50)
[2016-04-07 16:56] LABS: ALANINE AMINOTRANSFERASE 33 U/L (21-72); ALBUMIN 4.7 g/dL (3.5-5.0); ALKALINE PHOSPHATASE 108 U/L (38-126); ANION GAP 15 (5-19); ASPARTATE AMINO TRANSFERASE 29 U/L (17-59); BILIRUBIN,TOTAL 0.6 mg/dL (0.2-1.3); BLOOD UREA NITROGEN 14 mg/dL (7-20); CALCIUM 10.1 mg/dL (8.4-10.2); CARBON DIOXIDE 17 mmol/L (22-30); CHLORIDE 109 mmol/L (98-107); CREATINE KINASE 164 U/L (55-170); CREATININE RESULT 1.19 mg/dL (0.52-1.25); GLUCOSE 126 mg/dL (75-110); POTASSIUM 4.3 mmol/L (3.6-5.0); SODIUM 140.8 mmol/L (137-145)
[2016-04-07 17:07] LABS: CREATINE KINASE MB 0.92 ng/mL (<4.55)
[2016-04-07 17:08] LABS: TROPONIN I < 0.012 ng/mL
--- NOTE | 2016-04-07 18:03 | ER Document Report ---
ED General - General Chief Complaint: chest discomfort after eating. Stated Complaint: DIFFICULTY BREATHING Time seen by provider: 18:03 Mode of Arrival: Ambulatory Information source: Patient Notes: This is a 60-year-old man with a history of hypertension, headaches, anxiety and schizoaffective disorder. The patient is brought in to the emergency room by EMS for shortness of breath, palpitations after eating food. EMS reports that patient had chest discomfort which was reproducible and that he appeared anxious. He was noted to have a blood pressure that was elevated at 152/111 and his respiratory rate was 32 at the time. TRAVEL OUTSIDE OF THE [place] IN LAST 30 DAYS: No - HPI Onset: Just prior to arrival Onset/Duration: Gradual Quality of pain: No pain Severity: None Pain Level: Denies Associated symptoms: Chest pain, Shortness of breath. denies: Chills, Fever Exacerbated by: Denies Relieved by: Denies Similar symptoms previously: Yes Recently seen / treated by doctor: Yes - Related Data Allergies/Adverse Reactions: No Known Allergies Allergy (Verified 02/16/16 13:03) Past Medical History - General Information source: Patient - Social History Smoking Status: Never Smoker Cigarette use (# per day): No Chew tobacco use (# tins/day): No Frequency of alcohol use: None Drug Abuse: None Lives with: Family Family History: Reviewed & Not Pertinent Patient has suicidal ideation: No Patient has homicidal ideation: No - Past Medical History Cardiac Medical History: Reports: Hx Hypertension Pulmonary Medical History: Denies: Hx COPD Neurological Medical History: Denies: Hx Seizures Renal/ Medical History: Reports: Hx Kidney Stones. Denies: Hx Peritoneal Dialysis Malignancy Medical History: Reports None GI Medical History: Reports: None Musculoskeltal Medical History: Reports None Skin Medical History: Reports None Psychiatric Medical History: Reports: Hx Depression, Hx Schizophrenia Traumatic Medical History: Reports: None Infectious Medical History: Reports: None Past Surgical History: Reports: Hx Cholecystectomy, Hx Kidney (Renal Surgery) - Immunizations Hx Diphtheria, Pertussis, Tetanus Vaccination: No Review of Systems - Review of Systems Notes: Review of systems: Constitutional: Denies fever, chills. EENT: Denies ear pain, sinus tenderness, throat pain, throat swelling. Cardiovascular: Patient does report chest wall pain which is positional. He does feel that he's been short of breath but is not sure if this is his anxiety or not. Respiratory: Denies wheezing, cough, hemoptysis. Abdomen: Denies abdominal pain, nausea, vomiting, diarrhea. Denies BRBPR or melena. Genitourinary: Denies dysuria, pyuria, hematuria, flank pain. Musculoskeletal: denies joint pain or swelling, denies back pain. Neurologic: Denies headache, photophobia, neck stiffness, weakness. Denies loss of bowel or bladder function. Denies saddle anesthesia. Skin: Denies rash, lesions. Physical Exam - Vital signs Vitals: BP 135/76 H 04/07/16 16:03 Notes: Physical exam: GENERAL: 60-year-old man, appears anxious, alert and oriented 3, no acute distress. HEAD: Atraumatic, normocephalic. EYES: Pupils equal round and reactive to light, extraocular movements intact, sclera anicteric, conjunctiva are normal. ENT: TMs normal, nares patent, oropharynx clear without exudates. Moist mucous membranes. NECK: Normal range of motion, supple without lymphadenopathy or JVD. LUNGS: Breath sounds clear to auscultation bilaterally and equal. No wheezes rales or rhonchi. HEART: Regular rate and rhythm without murmurs, rubs or gallops. ABDOMEN: Soft, normoactive bowel sounds. No tenderness to palpation. No guarding, no rebound. No masses appreciated. EXTREMITIES: Normal range of motion, no pitting or edema. No clubbing or cyanosis. NEUROLOGICAL: Cranial nerves II through XII grossly intact. Normal speech, normal gait. PSYCH: Normal mood, normal affect. SKIN: Warm, Dry, normal turgor, no rashes or lesions noted. Course - Re-evaluation Re-evalutation: 04/07/16 21:35 Note: In this case, I have considered acute cardiopulmonary emergencies. I believe the patient at very low risk for an adverse event given the history of present illness and clinical exam suggesting a nonischemic process. Given the above, an EKG which is normal (or unchanged) and initial set of cardiac enzymes, I believe the patient to be at very low risk for ACS. The patient will be advised to follow-up with her primary care physician (or given and office contact number for primary care doctor). - Vital Signs Vital signs: Temp Pulse Resp BP Pulse Ox 87 22 H 138/79 H 97 04/07/16 21:52 04/07/16 21:52 04/07/16 21:52 04/07/16 21:52 - Laboratory Result Diagrams: 04/07/16 16:15 04/07/16 16:15 Laboratory results interpreted by me: 04/07/16 04/07/16 16:15 16:15 Seg Neutrophils % 81.4 H Lymphocytes % 10.1 L Absolute Neutrophils 8.3 H Chloride 109 H Carbon Dioxide 17 L Glucose 126 H - Diagnostic Test Radiology reviewed: Image reviewed, Reports reviewed - ETA shows no changes, no pulmonary emboli - EKG Interpretation by Me Rate: Tachycardia Rhythm: NSR - Initial EKG showed sinus tachycardia with a ventricular rate of 132 no acute T-wave changes. Discharge - Discharge Clinical Impression: chest wall pain, anxiety Condition: Stable Disposition: HOME, SELF-CARE Instructions: Chest Wall Pain ([facility]) Additional Instructions: Recommendations: Continue current medicines, Follow-up with Dr. Benedict Bass: Call the office on Saturday. Return to the emergency room for any worsening discomfort, or any concerns or getting worse. Referrals: BRYANNA PERSON MD [Primary Care Provider] - 04/09/16
[2016-04-07] MEDS ORDERED: ACETAMINOPHEN 325 MG TABLET PO ONE (18:22)
[2016-04-07 18:35] LABS: THYROID STIMULATING HORMONE 2.44 uIU/mL (0.47-4.68)
[2016-04-07 21:53] VITALS: BP 138/79
--- NOTE | 2016-04-07 22:13 | EKG REPORT ---
SEVERITY:- BORDERLINE ECG - SINUS TACHYCARDIA PROBABLE LEFT ATRIAL ABNORMALITY : Confirmed by: Vikash Javier 07-Apr-2016 22:12:34
== END 2016-04-07 21:52 | disposition home or self-care (01) ==
LOC: ER 15:51
DX: R07.89 Other chest pain (principal); I10 Essential (primary) hypertension; F41.9 Anxiety disorder, unspecified; R06.02 Shortness of breath; R00.2 Palpitations; R00.0 Tachycardia, unspecified
CPT/HCPCS: 93005; 99285; 96360; 36415; 84439; 82553; 82550; 84443; 85025; 80053; 84484; 71010; 71275; 93010; A9270 ×2; J7030

== ENCOUNTER 2016-04-09 19:59 | Emergency (ER) | payer MEDICARE, MEDICAID ==
--- NOTE | 2016-04-09 20:37 | ER Document Report ---
ED Medical Screen (RME) - General Stated Complaint: CHEST PAIN Mode of Arrival: Medic Information source: Patient Notes: Patient reports midsternal chest pain started around 3 in the morning. Patient states pain has been constant. Patient does report shortness of breath. Patient denies any nausea or vomiting. Patient was given aspirin per EMS. Patient states he has not slept in 2 days. Patient states that he has been hearing voices, but states this has not been too bad. Patient wants to be evaluated for his mental health problems as well. Patient states he doesn't think he can take care of himself anymore. hx: Hypertension, kidney stone, schizophrenia I have greeted and performed a rapid initial assessment of this patient. A comprehensive ED assessment and evaluation of the patient, analysis of test results and completion of the medical decision making process will be conducted by additional ED providers. TRAVEL OUTSIDE OF THE [place] IN LAST 30 DAYS: No - Related Data Allergies/Adverse Reactions: No Known Allergies Allergy (Verified 02/16/16 13:03) Past Medical History - Past Medical History Cardiac Medical History: Reports: Hx Hypertension Pulmonary Medical History: Denies: Hx COPD Neurological Medical History: Denies: Hx Seizures Renal/ Medical History: Reports: Hx Kidney Stones. Denies: Hx Peritoneal Dialysis Psychiatric Medical History: Reports: Hx Depression, Hx Schizophrenia Past Surgical History: Reports: Hx Cholecystectomy, Hx Kidney (Renal Surgery) - Immunizations Hx Diphtheria, Pertussis, Tetanus Vaccination: No Physical Exam - Cardiovascular Rhythm: Regular Heart sounds: S1 appreciated, S2 appreciated Course - Re-evaluation Re-evalutation: 04/09/16 medic had reported that pt had ekg performed in decon room after his [facility] to [facility]
[2016-04-09 21:39] LABS: APPEARANCE,URINE CLEAR; BILIRUBIN,URINE NEGATIVE (NEGATIVE); GLUCOSE, URINE NEGATIVE (NEGATIVE); KETONES,URINE NEGATIVE (NEGATIVE); LEUKOCYTE ESTERASE,URINE NEGATIVE (NEGATIVE); NITRITE,URINE NEGATIVE (NEGATIVE); PROTEIN,URINE NEGATIVE (NEGATIVE); URINE SPECIFIC GRAVITY 1.015; UROBILINOGEN,URINE NEGATIVE mg/dL (<2.0)
[2016-04-09 21:42] LABS: ABSOLUTE BASOPHILS # (AUTO) 0.1 10^3/uL (0.0-0.2); ABSOLUTE EOSINOPHILS # (AUTO) 0.1 10^3/uL (0.0-0.6); ABSOLUTE LYMPHOCYTES (AUTO) 1.8 10^3/uL (0.5-4.7); ABSOLUTE NEUT (AUTO) 8.2 10^3/uL (1.7-8.2); BASOPHILS % (AUTO) 0.5 % (0-2); EOSINOPHILS % (AUTO) 1.2 % (0-6); HEMATOCRIT 44.8 % (37.9-51.0); HGB HCT DIFFERENCE 0.2; LYMPHOCYTES % (AUTO) 16.2 % (13-45); MEAN CORPUSCULAR HEMOGLOBIN 30.3 pg (27.0-33.4); MEAN CORPUSCULAR HGB CONC 33.5 g/dL (32.0-36.0); MEAN CORPUSCULAR VOLUME 90 fl (80-97); MONOCYTES % (AUTO) 8.9 % (3-13); RED BLOOD COUNT 4.96 10^6/uL (4.35-5.55); RED CELL DISTRIBUTION WIDTH 13.4 % (11.5-14.0); SEGMENTED NEUTROPHILS % (AUTO) 73.2 % (42-78); WHITE BLOOD COUNT 11.2 10^3/uL (4.0-10.5)
[2016-04-09 22:06] LABS: ALANINE AMINOTRANSFERASE 36 U/L (21-72); ALBUMIN 4.5 g/dL (3.5-5.0); ALKALINE PHOSPHATASE 100 U/L (38-126); ANION GAP 13 (5-19); ASPARTATE AMINO TRANSFERASE 29 U/L (17-59); BILIRUBIN,TOTAL 0.7 mg/dL (0.2-1.3); BLOOD UREA NITROGEN 12 mg/dL (7-20); CALCIUM 9.6 mg/dL (8.4-10.2); CARBON DIOXIDE 20 mmol/L (22-30); CHLORIDE 108 mmol/L (98-107); CREATINE KINASE 277 U/L (55-170); CREATININE RESULT 1.05 mg/dL (0.52-1.25); GLUCOSE 96 mg/dL (75-110); LIPASE 67.9 U/L (23-300); POTASSIUM 4.2 mmol/L (3.6-5.0); SODIUM 140.8 mmol/L (137-145); TOTAL PROTEIN 7.7 g/dL (6.3-8.2)
[2016-04-09 22:14] LABS: CREATINE KINASE MB 1.46 ng/mL (<4.55)
[2016-04-09 22:15] LABS: TROPONIN I < 0.012 ng/mL
[2016-04-09 23:52] LABS: URINE BARBITURATES SCREEN NEGATIVE; URINE METHADONE SCREEN NEGATIVE; URINE OPIATES LOW NEGATIVE; URINE PHENCYCLIDINE SCREEN NEGATIVE
--- NOTE | 2016-04-10 04:53 | ER Document Report ---
ED Psych Disorder / Suicide - General Chief Complaint: Psych Problem Stated Complaint: CHEST PAIN Time seen by provider: 22:00 Mode of Arrival: Ambulatory Information source: Patient TRAVEL OUTSIDE OF THE [place] IN LAST 30 DAYS: No - HPI Patient complains to provider of: Suicidal ideation, Other - Auditory hallucinations Onset: Other Onset was: Cannot confirm Quality of pain: No pain Suicide Risk Factors: Male, Schizophrenia Normal mood: No Associated symptoms: Flat affect Similar symptoms previously: Yes Recently seen / treated by doctor: Yes Notes: Patient is a 60-year-old male with a history of mental illness including schizophrenia, he reports that he is hearing voices which have increased in intensity recently, telling him negative things and that he is a bad person, he reports racing thoughts as well, and thoughts to harm himself although he has not attempted to harm himself recently and he does not currently have a plan to harm himself, he also reports to nursing staff that he's been having chest pain for 1 week but he did not mention this during my evaluation - Related Data Allergies/Adverse Reactions: No Known Allergies Allergy (Verified 04/09/16 23:52) Home Medications: Current Home Medications Unobtainable [Unobtainable] 04/09/16 [History] Past Medical History - General Information source: Patient - Social History Smoking Status: Unknown if Ever Smoked Family History: Reviewed & Not Pertinent Patient has suicidal ideation: Yes Patient has homicidal ideation: No - Past Medical History Cardiac Medical History: Reports: Hx Hypertension Pulmonary Medical History: Denies: Hx COPD Neurological Medical History: Denies: Hx Seizures Renal/ Medical History: Reports: Hx Kidney Stones. Denies: Hx Peritoneal Dialysis Psychiatric Medical History: Reports: Hx Depression, Hx Schizophrenia Past Surgical History: Reports: Hx Cholecystectomy, Hx Kidney (Renal Surgery) - Immunizations Hx Diphtheria, Pertussis, Tetanus Vaccination: No Review of Systems - Review of Systems Constitutional: No symptoms reported EENT: No symptoms reported Cardiovascular: Chest pain Respiratory: No symptoms reported Gastrointestinal: No symptoms reported Genitourinary: No symptoms reported Male Genitourinary: No symptoms reported Musculoskeletal: No symptoms reported Skin: No symptoms reported Hematologic/Lymphatic: No symptoms reported Neurological/Psychological: See HPI -: Yes All other systems reviewed and negative Physical Exam - Vital signs Vitals: Temp Pulse Resp BP Pulse Ox 97.3 F 57 L 22 H 186/79 H 98 04/09/16 20:22 04/09/16 20:22 04/09/16 20:22 04/09/16 20:22 04/09/16 20:22 Interpretation: Hypertensive, Bradycardic - General General appearance: Appears well, Alert - HEENT Head: Normocephalic, Atraumatic Eyes: Normal Pupils: PERRL - Respiratory Respiratory status: No respiratory distress Chest status: Nontender Breath sounds: Normal Chest palpation: Normal - Cardiovascular Rhythm: Regular Heart sounds: Normal auscultation Murmur: No - Abdominal Inspection: Normal Distension: No distension Bowel sounds: Normal Tenderness: Nontender Organomegaly: No organomegaly - Back Back: Normal, Nontender - Extremities General upper extremity: Normal inspection, Nontender, Normal color, Normal ROM , Normal temperature General lower extremity: Normal inspection, Nontender, Normal color, Normal ROM , Normal temperature, Normal weight bearing. No: Ariel's sign - Neurological Neuro grossly intact: Yes Cognition: Normal Orientation: AAOx4 Nicolaus Coma Scale Eye Opening: Spontaneous Angie Coma Scale Verbal: Oriented Nicolaus Coma Scale Motor: Obeys Commands Nicolaus Coma Scale Total: 15 Speech: Normal Motor strength normal: LUE, RUE, LLE, RLE Sensory: Normal - Psychological Associated symptoms: Flat affect - Skin Skin Temperature: Warm Skin Moisture: Dry Skin Color: Normal Course - Re-evaluation Re-evalutation: 04/10/16 06:05 Patient's laboratory results are unremarkable, he is resting comfortably with no complaints at present time, patient does not meet criteria for IVC, therefore I advised him that I will permit him to stay in the emergency room tonight for further evaluation by mental health team in the morning is a voluntary patient for further evaluation and recommendation, patient agreeable with this plan - Vital Signs Vital signs: Temp Pulse Resp BP Pulse Ox 98.2 F 61 16 111/62 100 04/10/16 05:39 04/10/16 05:39 04/10/16 05:39 04/10/16 05:39 04/10/16 05:39 - Laboratory Result Diagrams: 04/09/16 21:05 04/09/16 21:05 Laboratory results interpreted by me: 04/09/16 04/09/16 04/09/16 21:05 21:05 21:10 WBC 11.2 H Chloride 108 H Carbon Dioxide 20 L Creatine Kinase 277 H Urine Blood MODERATE H Acetaminophen < 10 L - EKG Interpretation by Me EKG shows normal: Sinus rhythm Rate: Bradycardia Discharge - Discharge Clinical Impression: Auditory hallucinations, Suicidal ideation Condition: Stable Disposition: PSYCH HOSP/UNIT
--- NOTE | 2016-04-10 08:10 | EKG REPORT ---
SEVERITY:- ABNORMAL ECG - SINUS RHYTHM NONSPECIFIC T ABNORMALITIES, LATERAL LEADS : Confirmed by: Arian Roper MD 10-Apr-2016 08:09:36
--- NOTE | 2016-04-10 09:16 | PSYCHOLOGICAL NOTE ---
Psych Note - Psych Note Psych Note: Patient is a 60 year old male who presented last night via EMS reportedly due to distress over his chronic auditory hallucinations, and once checked in disclosed to nursing staff after his initial medical assessment by ED MD that he was experiencing chest pains. Patient was medically cleared and allowed to stay overnight to speak with mental health. Patient is well known to this department and this clinician for multiple prior episodes of similar etiology. Patient has an [facility] community service provider, ANABELLA who provides ACTT with the patient. Patient has previously been encouraged to utilize his ACT Team and contact them when he is upset, vs presenting to the ED for non-emergent needs via EMS. Patient this morning states he just got out of [facility] last week where his medications were adjusted. Patient states he was home yesterday and a member of his ACT Team visited and reviewed some medications. Patient states he only stayed about 15 minutes and then when the person left, he laid down and woke up around 1900 and felt panicky. Patient states the voices were really negative with what they were saying, and he became scared they were going to kill him. Patient states he walked to the gas station and asked the attendant to call 911. Patient talks extensively about the voices, as well as his ACT Team who he states only spends about 15 minutes with him at a time, and provide no significant emotional support or counseling. Patient denies suicidal/ homicidal ideations. Patient encouraged to call his ACTT provider and request they present bedside for a discussion about his needs. Patient is A&Ox4. Mood is euthymic with smiling affect. Patient denies suicidal /homicidal ideations, intent, plan, or means. Patient denies current A/V H; delusions not noted. Thought processes were organized. Conversational speech was WNL for this patient. Intellectual abilities were estimated within average range. Attention and focus were fair. Insight, judgment, and impulse control were poor. 295.70 (F25.0) Schizoaffective Disorder, Bipolar Type by history 799.59 (R41.9) Unspecified Neurocognitive Disorder Patient's presenting symptoms are similar to that of a neurocognitive disorder and cause clinically significant distress in all domains of his life At this time and in this setting (ER) there is not enough information to make a more specific diagnosis (head CT suggestive of age related involutional changes) Impression/ Plan: Patient is psychiatrically cleared for discharge. Patient is considered to be at his baseline functioning, and denies wanting to harm anyone or himself. Patient was observed laughing and verbally engaging with staff talking about the Super Bowl, etc. Patient is again encouraged to utilize his professional and personal supports as opposed to attempting to meet his basic needs through the misuse and abuse of the Emergency Medical System, Mental Health, and Emergency Department. Patient's ACTT provider presented bedside and advised of patient's needs and concerns over his current services.
[2016-04-10 10:29] VITALS: BP 143/92
--- NOTE | 2016-04-11 13:50 | EKG REPORT ---
SEVERITY:- ABNORMAL ECG - SINUS RHYTHM NONSPECIFIC T ABNORMALITIES, LATERAL LEADS : Confirmed by: Arian Roper MD 11-Apr-2016 13:49:52
== END 2016-04-10 11:45 ==
LOC: ER 19:59
DX: F20.9 Schizophrenia, unspecified (principal); R45.851 Suicidal ideations; R07.9 Chest pain, unspecified; I10 Essential (primary) hypertension; R00.1 Bradycardia, unspecified
CPT/HCPCS: 36415; 71020; 80053; 80307; 81001; 82550; 82553; 83690; 83735; 84484; 85025; 93005; 93010; 99284

== ENCOUNTER 2016-07-21 11:09 | Emergency (ER) | payer MEDICARE, MEDICAID ==
[2016-07-21 12:39] LABS: APPEARANCE,URINE CLEAR; BILIRUBIN,URINE NEGATIVE (NEGATIVE); GLUCOSE, URINE NEGATIVE (NEGATIVE); KETONES,URINE NEGATIVE (NEGATIVE); LEUKOCYTE ESTERASE,URINE NEGATIVE (NEGATIVE); NITRITE,URINE NEGATIVE (NEGATIVE); PROTEIN,URINE NEGATIVE (NEGATIVE); URINE SPECIFIC GRAVITY 1.013; UROBILINOGEN,URINE NEGATIVE mg/dL (<2.0)
[2016-07-21] MEDS ORDERED: ACETAMINOPHEN 325 MG TABLET PO ONE (13:32)
--- NOTE | 2016-07-21 14:12 | ER Document Report ---
HPI - HPI Patient complains to provider of: Dysuria Pain Level: 3 Context: Patient is a 61-year-old male presents emergency department complaining of dysuria for 1 day. Patient states that he has a history of kidney stones. Denies any flank pain, fevers, decreased urine output. Patient states that his urine has been a normal yellow. past medical history significant for hypertension. Primary care physician is Dr. Raman - REPRODUCTIVE Reproductive: DENIES: : - DERM Skin Color: Normal Past Medical History - Social History Smoking Status: Unknown if Ever Smoked Family History: Reviewed & Not Pertinent Patient has suicidal ideation: No Patient has homicidal ideation: No - Past Medical History Cardiac Medical History: Reports: Hx Hypertension Pulmonary Medical History: Denies: Hx COPD Neurological Medical History: Denies: Hx Seizures Renal/ Medical History: Reports: Hx Kidney Stones. Denies: Hx Peritoneal Dialysis Psychiatric Medical History: Reports: Hx Depression, Hx Schizophrenia Past Surgical History: Reports: Hx Cholecystectomy, Hx Kidney (Renal Surgery) - Immunizations Hx Diphtheria, Pertussis, Tetanus Vaccination: No Vertical Provider Document - CONSTITUTIONAL Agree With Documented VS: Yes Exam Limitations: No Limitations General Appearance: WD/WN, No Apparent Distress - INFECTION CONTROL TRAVEL OUTSIDE OF THE [place] IN LAST 30 DAYS: No - RESPIRATORY Respiratory: Breath Sounds Normal, No Respiratory Distress, Chest Non-Tender O2 Sat by Pulse Oximetry: 97 - CARDIOVASCULAR Cardiovascular: Regular Rate, Regular Rhythm, No Murmur - GI/ABDOMEN Gastrointestinal: Abdomen Soft, Abdomen Tender - Tenderness to palpation of the suprapubic area., No Organomegaly, Normal Bowel Sounds. negative: Abdominal Guarding, Abdominal Rebound - REPRODUCTIVE Male Genitalia: Normal Inspection Notes: Tenderness to palpation at the base of the shaft of the penis to deep palpation. Otherwise no noted discharge. No testicular tenderness, epididymis normal. Cremasteric reflex intact bilaterally. - BACK Back: Normal Inspection. negative: CVA Tenderness-Right, CVA Tenderness-Left - MUSCULOSKELETAL/EXTREMETIES Musculoskeletal/Extremeties: MAEW, FROM, Non-Tender, No Edema - NEURO Level of Consciousness: Awake, Alert, Appropriate - DERM Integumentary: Warm, Dry, No Rash Course - Re-evaluation Re-evalutation: 07/21/16 17:19 Patient is a 61-year-old male who is hemodynamic stable, no acute distress afebrile. Urinalysis shows evidence of hematuria but otherwise no infection. CT shows evidence of bilateral kidney stones without any evidence of obstruction. Discussed with patient that he likely passed a kidney stone suffering from urethritis from passing a stone. Discussed with him to take Pyridium at home and Motrin can follow-up with his primary care physician as needed - Vital Signs Vital signs: Temp Pulse Resp BP Pulse Ox 98.1 F 89 20 162/86 H 97 07/21/16 11:24 07/21/16 11:24 07/21/16 11:24 07/21/16 11:24 07/21/16 11:24 - Laboratory Laboratory results interpreted by me: 07/21/16 12:16 Urine Blood SMALL H - Diagnostic Test Radiology reviewed: Image reviewed, Reports reviewed Discharge - Discharge Clinical Impression: Urethritis Condition: Good Disposition: HOME, SELF-CARE Instructions: Urethritis ([facility]), Use of [id number]-Auv-Xfnfetd Ibuprofen ([facility]), Acetaminophen Prescriptions: Phenazopyridine HCl [Pyridium] 200 mg PO TID #9 tablet Forms: Elevated Blood Pressure Referrals: BRYANNA PERSON MD [Primary Care Provider] - Follow up as needed
[2016-07-21 14:22] VITALS: BP 153/85
== END 2016-07-21 14:19 | disposition home or self-care (01) ==
LOC: ER 11:09
DX: N34.2 Other urethritis (principal); N20.0 Calculus of kidney; R31.9 Hematuria, unspecified; R30.0 Dysuria; I10 Essential (primary) hypertension; Z90.49 Acquired absence of other specified parts of digestive tract
CPT/HCPCS: 99284; 81001; 76380; A9270

== ENCOUNTER 2016-08-14 19:05 | Emergency (ER) | payer MEDICARE, MEDICAID ==
[2016-08-14 20:05] LABS: ABSOLUTE BASOPHILS # (AUTO) 0.1 10^3/uL (0.0-0.2); ABSOLUTE EOSINOPHILS # (AUTO) 0.3 10^3/uL (0.0-0.6); ABSOLUTE LYMPHOCYTES (AUTO) 1.3 10^3/uL (0.5-4.7); ABSOLUTE MONOCYTES (AUTO) 0.8 10^3/uL (0.1-1.4); ABSOLUTE NEUT (AUTO) 4.8 10^3/uL (1.7-8.2); BASOPHILS % (AUTO) 0.9 % (0-2); EOSINOPHILS % (AUTO) 3.5 % (0-6); HEMATOCRIT 46.5 % (37.9-51.0); HEMOGLOBIN 15.3 g/dL (13.5-17.0); HGB HCT DIFFERENCE -0.6; LYMPHOCYTES % (AUTO) 18.1 % (13-45); MEAN CORPUSCULAR VOLUME 91 fl (80-97); MONOCYTES % (AUTO) 11.2 % (3-13); RED CELL DISTRIBUTION WIDTH 13.4 % (11.5-14.0); SEGMENTED NEUTROPHILS % (AUTO) 66.3 % (42-78); WHITE BLOOD COUNT 7.3 10^3/uL (4.0-10.5)
[2016-08-14] MEDS ORDERED: ACETAMINOPHEN 325 MG TABLET PO ONE (20:08)
--- NOTE | 2016-08-14 20:11 | ER Document Report ---
ED Medical Screen (RME) - General Chief Complaint: Pain With Urination Stated Complaint: PAINFUL URINATION Time Seen by Provider: 08/14/16 20:04 Mode of Arrival: Ambulatory Information source: Patient Notes: This is a 61-year-old male with a history of hypertension and kidney stones who presents with painful urination for 1 day. He states the symptoms are similar to his prior kidney stones. He has had intermittent very mild left flank pain today. He reports pain in both testicles but denies any swelling or trauma. No fevers or chills. No abdominal pain or vomiting. He states that he has had 4 or 5 prior procedures for kidney stones in the past. I have greeted and performed a rapid initial assessment of this patient. A comprehensive ED assessment and evaluation of the patient, analysis of test results and completion of the medical decision making process will be conducted by additional ED providers. TRAVEL OUTSIDE OF THE [place] IN LAST 30 DAYS: No - Related Data Allergies/Adverse Reactions: No Known Allergies Allergy (Verified 08/14/16 19:54) Past Medical History - Past Medical History Cardiac Medical History: Reports: Hx Hypertension Pulmonary Medical History: Denies: Hx COPD Neurological Medical History: Denies: Hx Seizures Renal/ Medical History: Reports: Hx Kidney Stones. Denies: Hx Peritoneal Dialysis Psychiatric Medical History: Reports: Hx Depression, Hx Schizophrenia Past Surgical History: Reports: Hx Cholecystectomy, Hx Kidney (Renal Surgery) - Immunizations Hx Diphtheria, Pertussis, Tetanus Vaccination: No Physical Exam - Vital signs Vitals: Temp Pulse Resp BP Pulse Ox 98.7 F 85 16 150/101 H 92 08/14/16 19:16 08/14/16 19:16 08/14/16 19:16 08/14/16 19:16 08/14/16 19:16 - General General appearance: Appears well In distress: None - Respiratory Respiratory status: No respiratory distress Breath sounds: Normal. No: Rales, Rhonchi, Wheezing - Cardiovascular Rhythm: Regular Heart sounds: Normal auscultation, S1 appreciated, S2 appreciated Murmur: No Course - Vital Signs Vital signs: Temp Pulse Resp BP Pulse Ox 98.7 F 85 16 150/101 H 92 08/14/16 19:16 08/14/16 19:16 08/14/16 19:16 08/14/16 19:16 08/14/16 19:16 - Laboratory Result Diagrams: 08/14/16 19:40 08/14/16 19:40
[2016-08-14 20:24] LABS: ALANINE AMINOTRANSFERASE 33 U/L (21-72); ALBUMIN 4.6 g/dL (3.5-5.0); ALKALINE PHOSPHATASE 101 U/L (38-126); ANION GAP 13 (5-19); ASPARTATE AMINO TRANSFERASE 31 U/L (17-59); BILIRUBIN,DIRECT 0.3 mg/dL (0.0-0.4); BILIRUBIN,TOTAL 0.8 mg/dL (0.2-1.3); BLOOD UREA NITROGEN 12 mg/dL (7-20); CALCIUM 9.5 mg/dL (8.4-10.2); CARBON DIOXIDE 23 mmol/L (22-30); CHLORIDE 106 mmol/L (98-107); CREATININE RESULT 1.11 mg/dL (0.52-1.25); GLUCOSE 117 mg/dL (75-110); LIPASE 50.2 U/L (23-300); SODIUM 141.8 mmol/L (137-145)
[2016-08-14 20:30] LABS: APPEARANCE,URINE SLIGHTLY-CLOUDY; BILIRUBIN,URINE NEGATIVE (NEGATIVE); GLUCOSE, URINE NEGATIVE (NEGATIVE); KETONES,URINE NEGATIVE (NEGATIVE); LEUKOCYTE ESTERASE,URINE NEGATIVE (NEGATIVE); NITRITE,URINE NEGATIVE (NEGATIVE); PROTEIN,URINE NEGATIVE (NEGATIVE); URINE SPECIFIC GRAVITY 1.028; UROBILINOGEN,URINE NEGATIVE mg/dL (<2.0)
--- NOTE | 2016-08-14 20:41 | RADIOLOGY REPORT (SQ) ---
EXAM DESCRIPTION: KUB/ABDOMEN (SINGLE VIEW) COMPLETED DATE/TIME: 08/14/2016 8:27 pm REASON FOR STUDY: left flank pain, h/o kidney stones COMPARISON: Abdominal CT scan dated 07/21/2016 NUMBER OF VIEWS: One view. TECHNIQUE: Supine radiographic image of the abdomen acquired. LIMITATIONS: None. FINDINGS: BOWEL GAS PATTERN: Normal bowel gas pattern. No dilated loops. CALCIFICATIONS: A couple small calcific densities are projected in the left mid abdomen consistent wi th renal calculi which were identified on the recent CT scan. SOFT TISSUES: No gross mass or suggestion of organomegaly. HARDWARE: None in the abdomen. BONES: No acute fracture. No worrisome bone lesions. OTHER: No other significant finding. IMPRESSION: Findings consistent with left renal calculi. Nonspecific intestinal bowel gas pattern. Other findings as noted above TECHNICAL DOCUMENTATION: JOB ID: [id number] [employer]- All Rights Reserved
[2016-08-14] MEDS ORDERED: IBUPROFEN 600 MG TABLET PO ONE (22:53)
[2016-08-14] MEDS ORDERED: PHENAZOPYRIDINE HCL 200 MG TABLET PO ONE (22:53)
--- NOTE | 2016-08-14 22:56 | ER Document Report ---
ED GI/ - General Chief Complaint: Pain With Urination Stated Complaint: PAINFUL URINATION Time Seen by Provider: 08/14/16 20:04 Mode of Arrival: Ambulatory Notes: Patient is a 61-year-old male, past medical history prior kidney stones, presents with left flank pain and dysuria, similar to prior kidney stones. He says that his stones usually pass on their own. He denies nausea, vomiting, hematuria, fevers, headache or back pain. TRAVEL OUTSIDE OF THE [place] IN LAST 30 DAYS: No - Related Data Allergies/Adverse Reactions: No Known Allergies Allergy (Verified 08/14/16 19:54) Past Medical History - General Information source: Patient - Social History Smoking Status: Current Every Day Smoker Family History: Reviewed & Not Pertinent Patient has suicidal ideation: No Patient has homicidal ideation: No - Past Medical History Cardiac Medical History: Reports: Hx Hypertension Pulmonary Medical History: Denies: Hx COPD Neurological Medical History: Denies: Hx Seizures Renal/ Medical History: Reports: Hx Kidney Stones. Denies: Hx Peritoneal Dialysis Psychiatric Medical History: Reports: Hx Depression, Hx Schizophrenia Past Surgical History: Reports: Hx Cholecystectomy, Hx Kidney (Renal Surgery) - Immunizations Hx Diphtheria, Pertussis, Tetanus Vaccination: No Review of Systems - Review of Systems Notes: REVIEW OF SYSTEMS: CONSTITUTIONAL: -fevers, -chills EENT: -eye pain, -difficulty swallowing, -nasal congestion CARDIOVASCULAR:-chest pain, -syncope. RESPIRATORY: -cough, -SOB GASTROINTESTINAL: -abdominal pain, - nausea, -vomiting, -diarrhea GENITOURINARY: -dysuria, -hematuria MUSCULOSKELETAL: left flank pain, -neck pain SKIN: -rash or skin lesions. HEMATOLOGIC: -easy bruising or bleeding. LYMPHATIC: -swollen, enlarged glands. NEUROLOGICAL: -altered mental status or loss of consciousness, -headache, - neurologic symptoms PSYCHIATRIC: -anxiety, -depression. ALL OTHER SYSTEMS REVIEWED AND NEGATIVE. Physical Exam - Vital signs Vitals: Temp Pulse Resp BP Pulse Ox 98.7 F 85 16 150/101 H 92 08/14/16 19:16 08/14/16 19:16 08/14/16 19:16 08/14/16 19:16 08/14/16 19:16 - Notes Notes: PHYSICAL EXAMINATION: GENERAL: Well-appearing, well-nourished and in no acute distress. HEAD: Atraumatic, normocephalic. EYES: Pupils equal round and reactive to light, extraocular movements intact, sclera anicteric, conjunctiva are normal. ENT: nares patent, oropharynx clear without exudates. Moist mucous membranes. NECK: Normal range of motion, supple without lymphadenopathy LUNGS: Breath sounds clear to auscultation bilaterally and equal. No wheezes rales or rhonchi. HEART: Regular rate and rhythm without murmurs ABDOMEN: Soft, nontender, normoactive bowel sounds. No guarding, no rebound. No masses appreciated. EXTREMITIES: Normal range of motion, no pitting or edema. No cyanosis. NEUROLOGICAL: Cranial nerves grossly intact. Normal speech, normal gait. Normal sensory and motor exams. PSYCH: Normal mood, normal affect. SKIN: Warm, Dry, normal turgor, no rashes or lesions noted. Course - Re-evaluation Re-evalutation: Patient appears well. His symptoms are consistent with his prior kidney stones. KUB shows his stones. No evidence of infection on urinalysis. He is tolerating fluids by mouth. Instructed him to follow-up with his urologist for further evaluation and treatment. We will send him home with Zofran, Pyridium and Motrin with return precautions. - Vital Signs Vital signs: Temp Pulse Resp BP Pulse Ox 98.7 F 85 16 150/101 H 92 08/14/16 19:16 08/14/16 19:16 08/14/16 19:16 08/14/16 19:16 08/14/16 19:16 - Laboratory Result Diagrams: 08/14/16 19:40 08/14/16 19:40 Laboratory results interpreted by me: 08/14/16 08/14/16 19:40 19:40 Glucose 117 H Urine Ascorbic Acid 40 H - Diagnostic Test Radiology reviewed: Image reviewed, Reports reviewed Radiology results interpreted by me: KUB: stones Discharge - Discharge Clinical Impression: Renal colic Condition: Stable Disposition: HOME, SELF-CARE Additional Instructions: KIDNEY STONE: You are passing or have passed a kidney stone. These stones are usually due to increased calcium or uric acid concentrations in your urine. Stones within the kidney itself are not painful. The pain occurs as the stone leaves the kidney to pass down the long tube, called the ureter, leading to the bladder. If the stone is small, it will usually pass by itself. Most patients can pass the stone at home. You will usually receive medications for pain, nausea or vomiting, and sometimes a medication to assist in passing the kidney stone. However, if the pain is very severe or if vomiting prevents you from taking oral pain medications, you may need to return for further treatment. Drink three or four quarts of fluids per day. You will be given pain medication (if needed) and urine strainers. Strain all your urine to see if the stone passes. If your doctor has asked you to bring the stone in for analysis, return with the stone once it has passed. Return if pain or vomiting become severe, if you develop a high fever, if you are unable to pass your urine, or if other unusual symptoms occur. ANTINAUSEA MEDICATION: You have been given a medication to suppress nausea and vomiting. This type of medication can be given as a shot, pill, or suppository. It will usually last for many hours. Pills and shots usually last six to eight hours, suppositories last about 12 hours. For the typical illness, only one or two doses of the medication may be necessary. Mild lightheadedness may occur. This type of medicine can cause drowsiness. Do not drive or operate dangerous machinery while under its influence. Do not mix with alcohol. See your doctor at once if you have muscle spasms or tightness, or uncontrollable motions (particularly of the neck, mouth, or jaw). Persistent vomiting or severe lightheadedness should also be evaluated by the physician. FLOMAX (tamsulosin): Flomax is a medicine that shrinks the prostate gland. It helps relieve symptoms of benign prostatic hypertrophy, such as frequent urination, weak stream, and inadequate emptying. It has been shown to dilate the ureter (tube leading from the kidney to the bladder) and help in passing kidney stones Flomax usually causes no side effects. You may notice slight tiredness and dizziness for a few days. Some patients develop nasal congestion. Rarely, impotence can occur. If the symptoms are bothersome and don't improve with continued use, call your doctor. Contact your doctor or return if you have fainting spells, severe weakness or dizziness, shortness of breath, or rash. FOLLOW-UP CARE: If you have been referred to a physician for follow-up care, call the physician s office for an appointment as you were instructed or within the next two days. If you experience worsening or a significant change in your symptoms, notify the physician immediately or return to the Emergency Department at any time for re-evaluation. Prescriptions: Ibuprofen [Motrin 600 Mg Tablet] 600 mg PO TID #15 tablet Ondansetron [Zofran Odt 4 mg Tablet] 1 - 2 tab PO Q4H PRN #15 tab.rapdis PRN Reason: For Nausea/Vomiting Phenazopyridine HCl [Pyridium 200 mg Tablet] 200 mg PO TID #15 tablet Referrals: REYNA MAI MD [ACTIVE STAFF] - Follow up as needed
[2016-08-14 23:10] VITALS: BP 155/94
== END 2016-08-14 23:09 | disposition home or self-care (01) ==
LOC: ER 19:05
DX: N23 Unspecified renal colic (principal); R30.0 Dysuria; F17.200 Nicotine dependence, unspecified, uncomplicated; I10 Essential (primary) hypertension; Z87.442 Personal history of urinary calculi; Z90.49 Acquired absence of other specified parts of digestive tract
CPT/HCPCS: 99283; 36415; 83690; 85025; 80053; 81001; 74000; A9270 ×3; J3490

== ENCOUNTER 2016-09-09 15:09 | Emergency (ER) | payer MEDICARE, OTHER, MEDICAID ==
--- NOTE | 2016-09-09 16:22 | ER Document Report ---
ED Psych Disorder / Suicide - General Information source: Patient TRAVEL OUTSIDE OF THE U[place] IN LAST 30 DAYS: No - HPI Patient complains to provider of: Suicidal ideation, Other - stress. No: Suicidal plan Associated symptoms: Other - see above <ELIAZAR BO - Last Filed: 09/09/16 17:30> <CHIN GREENBERG - Last Filed: 09/09/16 19:41> - General Chief Complaint: Suicidal Ideation Stated Complaint: SUICIDAL IDEATION Time Seen by Provider: 09/09/16 15:48 Notes: Patient is a 61 year old male who presents to the ED with complaints of being stressed and not sleeping last night. Patient has recently been having suicidal thought but has not plan and is not currently suicidal. Patient denies any abdominal pain. Patient states he is also out of his medication and has not taken his hypertension medication in 2 months. 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 No other concerns or complaints at this time. (ELIAZAR BO) - Related Data Allergies/Adverse Reactions: No Known Allergies Allergy (Verified 08/14/16 19:54) Past Medical History - General Information source: Patient - Social History Smoking Status: Never Smoker Chew tobacco use (# tins/day): No Frequency of alcohol use: None Drug Abuse: None Family History: Reviewed & Not Pertinent Patient has suicidal ideation: Yes Patient has homicidal ideation: No - Past Medical History Cardiac Medical History: Reports: Hx Hypertension Pulmonary Medical History: Denies: Hx COPD Neurological Medical History: Denies: Hx Seizures Renal/ Medical History: Reports: Hx Kidney Stones. Denies: Hx Peritoneal Dialysis Psychiatric Medical History: Reports: Hx Depression, Hx Schizophrenia Past Surgical History: Reports: Hx Cholecystectomy, Hx Kidney (Renal Surgery) - Immunizations Hx Diphtheria, Pertussis, Tetanus Vaccination: No <ELIAZAR BO - Last Filed: 09/09/16 17:30> Review of Systems - Review of Systems Constitutional: No symptoms reported EENT: No symptoms reported Cardiovascular: No symptoms reported Respiratory: No symptoms reported Gastrointestinal: See HPI. denies: Abdominal pain Genitourinary: No symptoms reported Male Genitourinary: No symptoms reported Musculoskeletal: No symptoms reported Skin: No symptoms reported Hematologic/Lymphatic: No symptoms reported Neurological/Psychological: See HPI, Other - stress, not sleeping at night <ELIAZAR BO - Last Filed: 09/09/16 17:30> Physical Exam - Vital signs Interpretation: Normal - General General appearance: Alert In distress: None - HEENT Head: Normocephalic, Atraumatic Eyes: Normal Pupils: PERRL - Respiratory Respiratory status: No respiratory distress Chest status: Nontender Breath sounds: Normal Chest palpation: Normal - Cardiovascular Rhythm: Regular Heart sounds: Normal auscultation Murmur: No - Abdominal Inspection: Normal Distension: No distension Bowel sounds: Normal Tenderness: Nontender Organomegaly: No organomegaly - Back Back: Normal, Nontender - Extremities General upper extremity: Normal inspection, Nontender, Normal color, Normal ROM , Normal temperature General lower extremity: Normal inspection, Nontender, Normal color, Normal ROM , Normal temperature, Normal weight bearing. No: Ariel's sign - Neurological Neuro grossly intact: Yes Cognition: Normal Orientation: AAOx4 [place] Coma Scale Eye Opening: Spontaneous Angie Coma Scale Verbal: Oriented Angie Coma Scale Motor: Obeys Commands Angie Coma Scale Total: 15 Speech: Normal Motor strength normal: LUE, RUE, LLE, RLE Sensory: Normal - Psychological Associated symptoms: Anxious, Tearful - Skin Skin Temperature: Warm Skin Moisture: Dry Skin Color: Normal <CHIN GREENBERG - Last Filed: 09/09/16 19:41> - Vital signs Vitals: Temp Pulse Resp BP Pulse Ox 98 F 102 H 22 H 137/87 H 98 09/09/16 15:34 09/09/16 15:34 09/09/16 15:34 09/09/16 15:34 09/09/16 15:34 Course <ELIAZAR BO - Last Filed: 09/09/16 17:30> <CHIN GREENBERG - Last Filed: 09/09/16 19:41> - Re-evaluation Re-evalutation: 09/09/16 Patient has not been taking his medication at home recently as he ran out of them and fired his mental health team. Patient has been seen by Dr. Null. He is not suicidal and does not meet criteria for inpatient facility at this time. Patient will have medication represcribed. Patient is agreeable to this plan. He is medically and psychiatrically stable for discharge at this time. He will be following up with [facility] this week. (CHIN GREENBERG) - Vital Signs Vital signs: Temp Pulse Resp BP Pulse Ox 98 F 84 16 149/79 H 96 09/09/16 15:34 09/09/16 16:49 09/09/16 16:49 09/09/16 16:49 09/09/16 16:49 Discharge <ELIAZAR BO - Last Filed: 09/09/16 17:30> <CHIN GREENBERG - Last Filed: 09/09/16 19:41> - Discharge Clinical Impression: Sleep disturbance Schizophrenia Qualifiers: Schizophrenia type: unspecified Qualified Code(s): F20.9 - Schizophrenia, unspecified Condition: Stable Disposition: HOME, SELF-CARE Instructions: Schizophrenia ([facility]) Prescriptions: Benztropine Mesylate [Cogentin 1 mg Tablet] 1 tab PO QHS #14 tab Clonidine HCl 0.1 mg PO QHS #14 tablet Buspirone HCl [Buspar 10 mg Tablet] 10 mg PO DAILY #15 tab Olanzapine [Zyprexa 5 mg Tablet] 5 mg PO Q12 #14 tablet Referrals: BRYANNA PERSON MD [Primary Care Provider] - Follow up as needed Scribe Attestation: 09/09/16 19:41 I personally performed the services described in the documentation, reviewed and edited the documentation which was dictated to the scribe in my presence, and it accurately records my words and actions. (CHIN GREENBERG) Scribe Documentation - Scribe Written by Ricardo:: ricardo Rossi, 09/09/2016, 1643 acting as scribe for :: Boubacar <ELIAZAR BO - Last Filed: 09/09/16 17:30>
[2016-09-09 17:10] VITALS: BP 149/79
--- NOTE | 2016-09-09 18:03 | PSYCHOLOGICAL NOTE ---
Psych Note - Psych Note Psych Note: Met with Patient who is well known to this provider. Patient reported he is suicidal secondary to stress from people disrespecting him and his girlfriend of 8 years passing away. He reported he fired his ACTT Team from [facility] because they would not listen to him and always argued with him. He stated he has not taken his medications in a while and feels his blood pressure might be high.Patient was focused on 2015 being a really bad year for his mental health and had difficulty being redirected at times. He reported living alone and being lonely, having no friends, and continuing to isolate. He reported being hospitalized over 20 times with poor results. Patient understands going inpatient would not be helpful to him at this point and needs to use some better coping skills. Talked with Patient for approximately 1 hour and let him know a referral could be made to [facility] and to [facility] for ongoing services but [facility] would need to be notified of his request. Encouraged him to make the phone call or go to the [facility] Office to discuss his Case. Patient was able to be calmed and redirected with a plan in place. Patient was alert and oriented to person, place, time, and circumstance. Mood was anxious and depressed with congruent affect. He initially endorsed suicidal ideation without intent or plan, but later reframed to feeling anxious and not suicidal. He denied homicidal ideation, intent or plan. He denied auditory / visual disturbance and minimal, non-harmful delusions were present. Thought processes were linear, logical, and rational. Conversational speech was slightly pressured at times but within normal limits for tone and prosody. Intellectual abilities were estimated within the average range. Immediate and recent memory appeared intact while remote memory appeared moderately impaired. Attention and concentration was poor, while insight, judgment, and impulse control was historically poor. 1. [id number] (F20.9) Schizophrenia 2. Anxiety and depression Impression / Plan: Patient is well known to the Providers in the ED and presented with suicidal ideation and anxiety. He was cooperative and engaged easily in conversation. He perseverated on 2015 being a bad year but was eventually redirected to focus on an aftercare plan that might be helpful going forward. Patient was agreeable to contacting [facility] Care Coordination for request of new Provider, and to contacting [place] and [facility] for ongoing services to include mobile crisis. He was much calmer and smiling as he was being discharged from the ED and absent of suicidal ideation or thought processes. Recommend discharge to outpatient follow up. ED Provider in agreement with recommendations and disposition.
== END 2016-09-09 16:51 | disposition home or self-care (01) ==
LOC: ER 15:09
DX: F20.9 Schizophrenia, unspecified (principal); G47.9 Sleep disorder, unspecified; F43.9 Reaction to severe stress, unspecified; I10 Essential (primary) hypertension; T46.5X6A Underdosing of other antihypertensive drugs, initial encounter; Z91.128 Patient's intentional underdosing of medication regimen for other reason; Z91.14 Patient's other noncompliance with medication regimen
CPT/HCPCS: 99285

== ENCOUNTER 2016-10-30 18:41 | Emergency (ER) | payer MEDICARE, MEDICAID ==
[2016-10-30] MEDS ORDERED: ASPIRIN 81 MG TABLET, CHEWABLE PO ONE (19:22)
[2016-10-30] MEDS ORDERED: ACETAMINOPHEN 325 MG TABLET PO ONE (19:23)
[2016-10-30 20:00] LABS: ABSOLUTE EOSINOPHILS # (AUTO) 0.3 10^3/uL (0.0-0.6); ABSOLUTE LYMPHOCYTES (AUTO) 1.3 10^3/uL (0.5-4.7); ABSOLUTE MONOCYTES (AUTO) 0.7 10^3/uL (0.1-1.4); ABSOLUTE NEUT (AUTO) 4.6 10^3/uL (1.7-8.2); BASOPHILS % (AUTO) 0.7 % (0-2); EOSINOPHILS % (AUTO) 4.3 % (0-6); HEMATOCRIT 41.1 % (37.9-51.0); HEMOGLOBIN 14.2 g/dL (13.5-17.0); HGB HCT DIFFERENCE 1.5; LYMPHOCYTES % (AUTO) 18.8 % (13-45); MEAN CORPUSCULAR HEMOGLOBIN 30.8 pg (27.0-33.4); MEAN CORPUSCULAR HGB CONC 34.6 g/dL (32.0-36.0); MEAN CORPUSCULAR VOLUME 89 fl (80-97); MONOCYTES % (AUTO) 9.6 % (3-13); RED BLOOD COUNT 4.62 10^6/uL (4.35-5.55); RED CELL DISTRIBUTION WIDTH 13.8 % (11.5-14.0); SEGMENTED NEUTROPHILS % (AUTO) 66.6 % (42-78); WHITE BLOOD COUNT 6.9 10^3/uL (4.0-10.5)
--- NOTE | 2016-10-30 20:11 | RADIOLOGY REPORT (SQ) ---
EXAM DESCRIPTION: CHEST SINGLE VIEW COMPLETED DATE/TIME: 10/30/2016 8:01 pm REASON FOR STUDY: shortness of breath COMPARISON: 04/09/2016 EXAM PARAMETERS: NUMBER OF VIEWS: One view. TECHNIQUE: Single frontal radiographic view of the chest acquired. RADIATION DOSE: NA LIMITATIONS: None. FINDINGS: LUNGS AND PLEURA: Similar diffuse chronic interstitial prominence. No consolidation, mass es or pneumothorax. No pleural effusion. MEDIASTINUM AND HILAR STRUCTURES: Stable. HEART AND VASCULAR STRUCTURES: Stable. BONES: No acute findings. HARDWARE: None in the chest. OTHER: No other significant finding. IMPRESSION: NO ACUTE RADIOGRAPHIC FINDING IN THE CHEST.Similar diffuse chronic interstitial prominen ce. TECHNICAL DOCUMENTATION: JOB ID: [id number]
[2016-10-30 20:24] LABS: ALANINE AMINOTRANSFERASE 36 U/L (21-72); ALBUMIN 3.8 g/dL (3.5-5.0); ALCOHOL < 10 mg/dL (NONE DETECTED); ALKALINE PHOSPHATASE 82 U/L (38-126); ANION GAP 10 (5-19); ASPARTATE AMINO TRANSFERASE 23 U/L (17-59); BILIRUBIN,DIRECT 0.3 mg/dL (0.0-0.4); BILIRUBIN,TOTAL 0.6 mg/dL (0.2-1.3); BLOOD UREA NITROGEN 11 mg/dL (7-20); CALCIUM 9.3 mg/dL (8.4-10.2); CARBON DIOXIDE 23 mmol/L (22-30); CHLORIDE 105 mmol/L (98-107); CREATINE KINASE 147 U/L (55-170); CREATININE RESULT 1.11 mg/dL (0.52-1.25); GLUCOSE 87 mg/dL (75-110); POTASSIUM 3.9 mmol/L (3.6-5.0); SODIUM 138.2 mmol/L (137-145); TOTAL PROTEIN 6.5 g/dL (6.3-8.2)
[2016-10-30 20:35] LABS: CREATINE KINASE MB 1.11 ng/mL (<4.55)
[2016-10-30 20:37] LABS: TROPONIN I < 0.012 ng/mL
[2016-10-30 21:25] LABS: APPEARANCE,URINE CLEAR; BILIRUBIN,URINE NEGATIVE (NEGATIVE); GLUCOSE, URINE NEGATIVE (NEGATIVE); KETONES,URINE NEGATIVE (NEGATIVE); LEUKOCYTE ESTERASE,URINE NEGATIVE (NEGATIVE); NITRITE,URINE NEGATIVE (NEGATIVE); PROTEIN,URINE NEGATIVE (NEGATIVE); URINE SPECIFIC GRAVITY 1.013; UROBILINOGEN,URINE NEGATIVE mg/dL (<2.0)
[2016-10-30 21:31] LABS: URINE BARBITURATES SCREEN NEGATIVE; URINE METHADONE SCREEN NEGATIVE; URINE OPIATES LOW NEGATIVE; URINE PHENCYCLIDINE SCREEN NEGATIVE
--- NOTE | 2016-10-31 00:41 | ER Document Report ---
ED General - General Chief Complaint: Headache Stated Complaint: CHEST PAIN,HEADACHE Time Seen by Provider: 10/30/16 19:01 TRAVEL OUTSIDE OF THE [place] IN LAST 30 DAYS: No - HPI Notes: 61-year-old male who was brought to the emergency department by EMS for complaints of headache and chest pain however when he arrived here his complaints are more psychiatric in nature. Patient states that he developed a frontal headache over the past 2 days after he became very depressed while watching the news and see what was happening in [place]. Patient states that he is very depressed by everything was going on in the world and by all the bad news. States that he is tried praying for people but it is not helping, states that like to give money to help people out but he has been to giving and he has been used in the past. Patient admits he is considered hurting himself but has no plan, suicidal ideation is passive and states that that is also only his last resort. States that he believes in God and believes in the Bible and knows that it is not a good idea to kill himself. Admits that he has been hearing voices for several years but they have gotten worse recently and they are trying to depress him. Patient states he cannot even listen to the radio without being depressed, for example when he listens to country songs he hears Gisell Mcwilliams saying "You're no good, you're no good, you're no good" and thinks that she is talking to him. He also complains of an addiction to pornography and then hears Arnaldo Kay singing about 7 women pursuing him. Patient admits to a history of bipolar disorder and schizophrenia as well as an extensive history of depression and anxiety. States that he spent a large amount of time in [facility] from between 1997 and 1999, states he follows with the act team but he does not feel that they are helping, states they treat him like a child. He is not taking any of his medications at this time because he does not feel like they help. Patient states his headache and his chest pain are all coming from the depression, states that the weight of what is going on in the world is too much. States he has had headaches and chest pain exactly like this in the past when he has gotten depressed. Patient does note that he has stopped taking his blood pressure medications because he feels like it is too strong. - Related Data Allergies/Adverse Reactions: No Known Allergies Allergy (Verified 10/30/16 19:10) Past Medical History - General Information source: Patient - Social History Smoking Status: Never Smoker Chew tobacco use (# tins/day): No Frequency of alcohol use: None Drug Abuse: None Family History: Reviewed & Not Pertinent Patient has suicidal ideation: Yes - passive, no plan - Past Medical History Cardiac Medical History: Reports: Hx Hypertension Pulmonary Medical History: Denies: Hx COPD Neurological Medical History: Denies: Hx Seizures Renal/ Medical History: Reports: Hx Kidney Stones. Denies: Hx Peritoneal Dialysis Psychiatric Medical History: Reports: Hx Depression, Hx Schizophrenia Past Surgical History: Reports: Hx Cholecystectomy, Hx Kidney (Renal Surgery) - Immunizations Hx Diphtheria, Pertussis, Tetanus Vaccination: No Review of Systems - Review of Systems Constitutional: No symptoms reported EENT: No symptoms reported Cardiovascular: See HPI, Chest pain Respiratory: No symptoms reported Neurological/Psychological: See HPI, Hallucinations, Headaches, Suicidal ideation -: Yes All other systems reviewed and negative Physical Exam - Vital signs Vitals: Temp Resp Pulse Ox 98.7 F 16 100 10/30/16 18:47 10/30/16 18:47 10/30/16 18:47 Interpretation: Normal - Notes Notes: GENERAL: Alert, tearful, upset. HEAD: Normocephalic, atraumatic EYES: Pupils equal, round and reactive to light, extraocular movements intact. ENT: Oral mucosa moist, tongue midline. NECK: Full range of motion, supple, trachea midline. LUNGS: Clear to auscultation bilaterally, no wheezes, rales or rhonchi, no respiratory distress. HEART: Regular rate and rhythm, no murmurs, gallops, rubs. ABDOMEN: Soft, nontender, nondistended, bowel sounds present in all 4 quadrants. EXTREMITIES: Moves all 4 extremities spontaneously, no edema, radial and dorsalis pedis pulses 2/4 bilaterally. No cyanosis. NEUROLOGICAL: Alert and oriented x3, normal speech, no facial droop. PSYCH: Tearful, tangential thoughts, obsessed with worship, frequently quotes Bible verses during his visit, has difficulty staying on anyone question without reverting back to worship. SKIN: Warm, Dry, normal turgor, no rashes or lesions noted. Course - Re-evaluation Re-evalutation: 10/31/16 00:44 CBC unremarkable, chemistries unremarkable, cardiac enzymes negative 2, urinalysis shows small blood but no actual RBCs, urine drug screen negative, salicylates, alcohol and acetaminophen are undetectable, chest x-ray shows no acute finding but similar diffuse chronic interstitial prominence, EKG is nonischemic. Patient is medically cleared. Given the fact the patient already has outpatient resources but is not using any of them is not taking his medications I do feel it would be useful for the patient to see mental health team in the morning. He does not meet IVC criteria, has passive but not active suicidal ideations, has no plan. If patient chooses to leave later tonight he is allowed to however he is agreeable to waiting until morning to be evaluated by mental health as well. Patient is medically cleared. - Vital Signs Vital signs: Temp Pulse Resp BP Pulse Ox 98.7 F 20 159/91 H 98 10/30/16 18:47 10/31/16 00:01 10/31/16 00:01 10/31/16 00:01 - Laboratory Result Diagrams: 10/30/16 19:50 10/30/16 19:50 Laboratory results interpreted by me: 10/30/16 10/30/16 19:50 21:01 Urine Blood SMALL H Salicylates < 1.0 L Acetaminophen < 10 L - EKG Interpretation by Me Additional EKG results interpreted by me: 10/31/16 00:44 EKG shows sinus rhythm at a rate of 69, normal axis, normal intervals, no ST segment elevations or depressions, there are T-wave inversions in lead III, V4 and V5 per my interpretation. Discharge - Discharge Clinical Impression: Passive suicidal ideations, Chest pain with low risk for cardiac etiology Depression Qualifiers: Depression Type: major depressive disorder Major depression recurrence: recurrent Active/Remission status: currently active Major depression episode severity: moderate Qualified Code(s): F33.1 - Major depressive disorder, recurrent, moderate Hypertension Qualifiers: Hypertension type: essential hypertension Qualified Code(s): I10 - Essential ( primary) hypertension Condition: Stable Disposition: HOME, SELF-CARE Referrals: BRYANNA PERSON MD [Primary Care Provider] - Follow up as needed
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
--- NOTE | 2016-10-31 09:41 | ER Document Report ---
Doctor's Note Notes: 10/31/16 09:41 Rounds: Chart reviewed and patient interview. Vital signs are all normal. Labs are essentially normal. Patient appears to be medically stable for transfer or discharge. Patient has been evaluated by mental health who feel he can be discharged for outpatient follow-up. Huber Salazar MD
[2016-10-31] MEDS ORDERED: LISINOPRIL 10 MG TABLET PO SCH (10:00)
[2016-10-31 10:02] VITALS: BP 162/82
--- NOTE | 2016-10-31 11:55 | EKG REPORT ---
SEVERITY:- NORMAL ECG - SINUS RHYTHM NONSPECIFIC T WAVE INVERSION LATERAL AND INFERIOR LEADS. [facility] : Confirmed by: Vikash Javier 31-Oct-2016 11:54:43
== END 2016-10-31 10:15 | disposition home or self-care (01) ==
LOC: ER 18:41
DX: F33.1 Major depressive disorder, recurrent, moderate (principal); F25.0 Schizoaffective disorder, bipolar type; R45.851 Suicidal ideations; R51 Headache; R07.9 Chest pain, unspecified; I10 Essential (primary) hypertension; Z91.14 Patient's other noncompliance with medication regimen
CPT/HCPCS: 93005; 99285; 36415; 82553; 80307 ×4; 82550; 85025; 80053; 81001; 84484; 71010; 93010; A9270 ×3

== ENCOUNTER 2016-11-12 23:03 | Emergency (ER) | payer MEDICARE, MEDICAID ==
[2016-11-13] MEDS ORDERED: LISINOPRIL 10 MG TABLET PO ONE (01:46)
--- NOTE | 2016-11-13 01:50 | ER Document Report ---
ED Headache - General Mode of Arrival: Ambulatory Information source: Patient TRAVEL OUTSIDE OF THE [place] IN LAST 30 DAYS: No - General Chief Complaint: Headache >24 hrs old Stated Complaint: HEADACHE Time Seen by Provider: 11/13/16 01:31 - HPI Notes: Patient is a 61 year old male presenting to the ED for headache and hypertension. Patient was seen for this on 10/30/2016 as well and given a lisinopril during his visit. Patient frequents the emergency department for psychiatric complaints, hypertenison, as well as coming in on [employer] papers. Patient states he has been out of his medications for a few months. Patient also states he hasn't had the support he needs because he is not following up with his ACT team. Patient states he is supposed to call them but he does not have a phone. Patient states his headache is located around his eyebrows and his temples. Patient has a history of schizoaffective disorder and bipolar disorder. Patient has no known drug allergies. (ARETHA HALE) - Related Data Allergies/Adverse Reactions: No Known Allergies Allergy (Verified 11/13/16 00:27) Past Medical History - General Information source: Patient - Social History Smoking Status: Never Smoker Cigarette use (# per day): No Chew tobacco use (# tins/day): No Smoking Education Provided: No Frequency of alcohol use: None Drug Abuse: None Family History: None Patient has suicidal ideation: No Patient has homicidal ideation: No - Past Medical History Cardiac Medical History: Reports: Hx Hypertension Renal/ Medical History: Reports: Hx Kidney Stones Psychiatric Medical History: Reports: Hx Bipolar Disorder, Hx Depression, Hx Schizoaffective Disorder Past Surgical History: Reports: Hx Cholecystectomy, Hx Kidney (Renal Surgery) - Immunizations Hx Diphtheria, Pertussis, Tetanus Vaccination: No Review of Systems - Review of Systems Constitutional: No symptoms reported EENT: No symptoms reported Cardiovascular: Other - hypertension Respiratory: No symptoms reported Gastrointestinal: No symptoms reported Genitourinary: No symptoms reported Male Genitourinary: No symptoms reported Musculoskeletal: No symptoms reported Skin: No symptoms reported Hematologic/Lymphatic: No symptoms reported Neurological/Psychological: See HPI, Headaches, Other -: Yes All other systems reviewed and negative Physical Exam - Vital signs Interpretation: Normal - Vital signs Vitals: Temp Pulse Resp BP Pulse Ox 97.8 F 65 18 158/104 H 95 11/13/16 00:25 11/13/16 00:25 11/13/16 00:25 11/13/16 00:25 11/13/16 00:25 - Notes Notes: GENERAL: Alert, interacts well. No acute distress. HEAD: Normocephalic, atraumatic, tenderness to the temporal musculature. EYES: Appear normal. Pupils equal, round, and reactive to light. ENT: Moist mucus membranes, tongue midline. NECK: Full range of motion. Supple. Trachea midline. Tenderness to the anterior cervical musculature. LUNGS: Clear to auscultation bilaterally, no wheezes, rales, or rhonchi. No respiratory distress. HEART: Regular rate and rhythm. No murmurs, gallops, or rubs. ABDOMEN: Soft, non-tender. Non-distended. Normal bowel sounds. EXTREMITIES: Moves all 4 extremities spontaneously. Normal strength. No edema. NEUROLOGICAL: Alert and oriented x3. Normal speech. No focal neurological deficits. GCS 15. PSYCH: Repeatedly says no one will help him, talkative, appears slightly anxious. SKIN: Warm, dry, normal turgor. No rashes or lesions noted. (ARETHA HALE) - Vital Signs Vital signs: Temp Pulse Resp BP Pulse Ox 98.0 F 55 L 18 160/100 H 98 11/13/16 02:05 11/13/16 02:05 11/13/16 02:05 11/13/16 02:05 11/13/16 02:05 Discharge - Discharge Clinical Impression: Has run out of medications, Tension headache High blood pressure Qualifiers: Hypertension type: essential hypertension Qualified Code(s): I10 - Essential ( primary) hypertension Condition: Stable Disposition: HOME, SELF-CARE Additional Instructions: Take the medication as prescribed for your blood pressure. Take Tylenol for headache if needed. Follow-up with your ACT Team or with [facility] tomorrow. Prescriptions: Lisinopril 20 mg PO DAILY #30 tablet Referrals: BRYANNA PERSON MD [Primary Care Provider] - Follow up as needed [facility] [Provider Group] - Follow up tomorrow Scribe Attestation: 11/13/16 02:23 I personally performed the services described in the documentation, reviewed and edited the documentation which was dictated to the scribe in my presence, and it accurately records my words and actions. (TOMMY HARRISON) Scribe Documentation - Scribe Written by Scribe:: Aretha Hale, Sejal 11/13/2016 01:55 acting as scribe for :: Autumn
[2016-11-13 02:14] VITALS: BP 160/100
== END 2016-11-13 02:40 | disposition home or self-care (01) ==
LOC: ER 23:03
DX: G44.209 Tension-type headache, unspecified, not intractable (principal); I10 Essential (primary) hypertension; R51 Headache
CPT/HCPCS: 99284; A9270

== ENCOUNTER 2016-11-13 06:54 | Emergency (ER) | payer MEDICARE, MEDICAID ==
[2016-11-13] MEDS ORDERED: DIPHENHYDRAMINE HCL 25 MG CAPSULE PO ONE (07:44)
[2016-11-13] MEDS ORDERED: ACETAMINOPHEN 325 MG TABLET PO ONE (07:44)
--- NOTE | 2016-11-13 07:45 | ER Document Report ---
ED Headache - General Chief Complaint: Headache >24 hrs old Stated Complaint: POSSIBLE HIGH BLOOD PRESSURE Time Seen by Provider: 11/13/16 07:19 Notes: Patient is a 61-year-old male who returns emergency department complaining of headache. Patient states that he was seen here yesterday regarding this headache which he was told is due to stress. Patient states that he is here today for evaluation of his headache, high blood pressure as well as testicular discomfort. Patient states that his headache is around both temples and feels like it is related to stress. Patient states that it improves with Tylenol. He did not take anything at home prior to arrival. Patient states that he does have a history of hypertension and has been taking lisinopril for it. Patient states that he received medication here last night went home felt dizzy and decided to come back to the emergency department. At this time he denies any dizziness, lightheadedness, vision disturbances, light sensitivity, sound sensitivity. Denies any chest pain, shortness of breath. Patient states that he has been noncompliant with his home medications. Regarding his testicular discomfort. Patient states he has been having pain in his testicles for months and is been evaluated here for before. Patient states that he only notices it when he urinates. Denies any pyuria, hematuria, urinary frequency, urgency, discharge. Patient states he is not sexually active. Patient states that he has not followed up with his primary care provider regarding any of the above complaints. He states that he is to follow with the acting out of [facility] until he fired them in September because he felt that they were not helpful to his needs. He states that he has not followed up with his primary care over the summer. PMH: HTN kidney stones. Per [facility] AT [facility] records, h/o schizoaffective, depression and anxiety PCP: Kelley TRAVEL OUTSIDE OF THE [place] IN LAST 30 DAYS: No - Related Data Allergies/Adverse Reactions: No Known Allergies Allergy (Verified 11/13/16 07:01) Home Medications: Current Home Medications No Home Medications 11/13/16 [History] Past Medical History - Social History Smoking Status: Never Smoker Family History: None Patient has suicidal ideation: No Patient has homicidal ideation: No - Past Medical History Cardiac Medical History: Reports: Hx Hypertension - pt doesn't take medication Pulmonary Medical History: Denies: Hx COPD Neurological Medical History: Denies: Hx Seizures Renal/ Medical History: Reports: Hx Kidney Stones. Denies: Hx Peritoneal Dialysis Psychiatric Medical History: Reports: Hx Bipolar Disorder, Hx Depression, Hx Schizoaffective Disorder, Hx Schizophrenia Past Surgical History: Reports: Hx Cholecystectomy, Hx Kidney (Renal Surgery) - Immunizations Hx Diphtheria, Pertussis, Tetanus Vaccination: Yes Review of Systems - Review of Systems Constitutional: No symptoms reported Cardiovascular: No symptoms reported Respiratory: No symptoms reported Genitourinary: See HPI Neurological/Psychological: See HPI. denies: Depression, Anxiety, Homicidal ideation, Suicidal ideation -: Yes All other systems reviewed and negative Physical Exam - Vital signs Vitals: Temp Pulse Resp BP Pulse Ox 98.5 F 71 18 179/91 H 96 11/13/16 07:03 11/13/16 07:03 11/13/16 07:03 11/13/16 07:03 11/13/16 07:03 - Notes Notes: PHYSICAL EXAM GENERAL: Alert, interacts well. HEAD: Normocephalic, atraumatic. EYES: Pupils equal, round, and reactive to light. Extraocular movements intact. ENT: Oral mucosa moist, tongue midline. NECK: Full range of motion. Supple. Trachea midline. LUNGS: Clear to auscultation bilaterally, no wheezes, rales, or rhonchi. No respiratory distress. HEART: Regular rate and rhythm. No murmurs, gallops, or rubs. ABDOMEN: Soft, nondistended, nontender. No guarding, rebound, or rigidity.. Bowel sounds present in all 4 quadrants. EXTREMITIES: Moves all 4 extremities spontaneously. No edema, radial and dorsalis pedis pulses 2/4 bilaterally. No cyanosis. NEUROLOGICAL: Alert and oriented x4. Normal speech. PSYCH: Normal affect, normal mood. SKIN: Warm, dry, normal turgor. No rashes or lesions noted. Course - Re-evaluation Re-evalutation: 11/13/16 09:30 Patient is a 61-year-old male who is hemodynamically stable, no acute distress and afebrile. Blood pressure has been mildly elevated but stable. Patient educated to take his home lisinopril as prescribed patient does not have any focal neurologic deficits, nuchal rigidity, vital signs are within normal limits no papilledema. Patient is otherwise no acute distress and hemodynamically stable. Low index for suspicion of acute subarachnoid hemorrhage, meningitis or mass. Low suspicion for acute life-threatening etiology with intact neuro exam therefore no additional imaging or laboratory testing is indicated. Will discharge patient home with strict follow-up with PCP for blood pressure check within the next week. Regarding his urinalysis, no evidence of urinary tract infection, dehydration. Discussed with patient to follow-up with his primary care provider regarding this complaint. - Vital Signs Vital signs: Temp Pulse Resp BP Pulse Ox 98.5 F 71 18 179/91 H 96 11/13/16 07:03 11/13/16 07:03 11/13/16 07:03 11/13/16 07:03 11/13/16 07:03 - Laboratory Laboratory results interpreted by me: 11/13/16 08:00 Urine Blood SMALL H Discharge - Discharge Clinical Impression: Tension headache High blood pressure Qualifiers: Hypertension type: unspecified Qualified Code(s): I10 - Essential (primary) hypertension Condition: Good Disposition: HOME, SELF-CARE Additional Instructions: HEADACHE: The physician does not feel that the headache you are experiencing has a serious underlying cause. Most headaches are due to emotional stress, with resultant muscle tension (tension headache). Occasionally, headaches are secondary to changes in the blood vessels of the scalp (vascular headache and migraine headache). Sometimes, a headache is the first symptom of another developing illness, such as a viral infection. You have no evidence of stroke, bleeding, meningitis, or other serious cause of your headache. The treatment of headaches varies with the severity and cause of the pain. Not all headaches need pain shots. In fact, there is evidence that using narcotics for headaches may make them worse in the long run. The physician will determine the therapy that's in your best interest. If you develop a fever, if the headache is different from any you've previously experienced, or if the headache progressively worsens, then call your physician at once or go to the emergency room. FOLLOW-UP CARE: If you have been referred to a physician for follow-up care, call the physician s office for an appointment as you were instructed or within the next two days. If you experience worsening or a significant change in your symptoms, notify the physician immediately or return to the Emergency Department at any time for re-evaluation. Referrals: BRYANNA PERSON MD [Primary Care Provider] - Follow up in 3-5 days
[2016-11-13 08:47] LABS: APPEARANCE,URINE CLEAR; BILIRUBIN,URINE NEGATIVE (NEGATIVE); GLUCOSE, URINE NEGATIVE (NEGATIVE); KETONES,URINE NEGATIVE (NEGATIVE); LEUKOCYTE ESTERASE,URINE NEGATIVE (NEGATIVE); NITRITE,URINE NEGATIVE (NEGATIVE); PROTEIN,URINE NEGATIVE (NEGATIVE); URINE SPECIFIC GRAVITY 1.012; UROBILINOGEN,URINE NEGATIVE mg/dL (<2.0)
[2016-11-13 09:15] LABS: RBC,URINE RARE /HPF
[2016-11-13 09:16] LABS: BACTERIA,URINE TRACE /HPF
[2016-11-13 09:42] VITALS: BP 160/93
== END 2016-11-13 09:43 | disposition home or self-care (01) ==
LOC: ER 06:54
DX: G44.209 Tension-type headache, unspecified, not intractable (principal); I10 Essential (primary) hypertension; Z79.899 Other long term (current) drug therapy; N50.812 Left testicular pain; N50.811 Right testicular pain
CPT/HCPCS: 99284; 81001; A9270 ×2

== ENCOUNTER 2016-11-13 12:18 | Emergency (ER) | payer MEDICARE, MEDICAID ==
--- NOTE | 2016-11-13 14:52 | ER Document Report ---
ED Psych Disorder / Suicide - General Information source: Patient, [facility] Records TRAVEL OUTSIDE OF THE [place] IN LAST 30 DAYS: No - HPI Patient complains to provider of: Other - multiple visits to the ER Onset: Other Suicide Risk Factors: Lack of social support, Male, Schizophrenia Situational problems related to: Other Normal mood: Yes Associated symptoms: Normal affect, Normal mood - patient presents at baseline, Anxious Similar symptoms previously: Yes Recently seen / treated by doctor: Yes - 3rd visit in 24 hours <VENESSA KIDD - Last Filed: 11/13/16 14:43> - General Mode of Arrival: Ambulatory Information source: Patient <ASHTYN DÍAZ - Last Filed: 11/13/16 15:03> - General Chief Complaint: Dizziness Stated Complaint: DIZZINESS Time Seen by Provider: 11/13/16 13:18 - HPI Notes: Patient is 61 year old male who presents for the 3rd time in 24 hours with c/o a headache. He states he is uncomfortable due to the pain from the headache. He states the lights bother his eyes and worsen his headache. He does acknowledge that he has been noncompliant with his psychiatric medications and treatment. Patient states he was scheduled to meet a new [facility] staff member last week; however, the meeting did not happen. Patient states he has not been eating and caring from himself properly. Patient denies this is an attempt at suicide. Patient states he is back today after being discharged this morning because he fell due to dizziness from his headache. Patient states he is having trouble getting up with the [facility] person, due to not having a phone and not having her number. He states he needs something stronger for his headache. Patient denies suicidal/homicidal ideations, intent, plan, or means. Patient denies A/V H. Patient states, "this is just blood pressure." He states his headache and anxiety stem from his managed blood pressure. He states that it has been roughly 6 months since he has taken medications. A [employer], Arely states: the last time patient was seen by Dr. Garcia, he was seen August 24. Arely states the patient is not authorized for services with them due to him refusing services, and refusing to take his medications. She states the patient has not been discharged from their program and she will go to his apartment Saturday. She asked to relay that she will come to his apartment at 0930. Patient is A&O. Mood is anxious with congruent affect. Patient denies suicidal/ homicidal ideations, intent, plan, or means. Patient denies A/V H; delusions were not noted. Thought processes were perseverative on his headache and [facility] provider. Attention and focus were fair. Insight, judgment, and impulse control were poor. Unspecified Schizophrenia or Related Psychosis Patient is psychiatrically cleared for discharge. Patient has chosen to discontinue his medications, which he has the right to do as his own guardian. While presently presenting symptomatic (paranoia) he does not want to harm himself or others. Coordination with [facility] occurred and an appointment was scheduled for Saturday at 0900. I consulted with Dr. Null in regards to the care and management of this patient. (VENESSA KIDD) - Related Data Allergies/Adverse Reactions: No Known Allergies Allergy (Verified 11/13/16 12:32) Past Medical History - General Information source: Patient, [facility] Office - [facility], [facility] Records - Social History Smoking Status: Unknown if Ever Smoked Cigarette use (# per day): No Chew tobacco use (# tins/day): No Family History: None Patient has suicidal ideation: No Patient has homicidal ideation: No - Past Medical History Cardiac Medical History: Reports: Hx Hypertension - pt doesn't take medication Pulmonary Medical History: Denies: Hx COPD Neurological Medical History: Denies: Hx Seizures Renal/ Medical History: Reports: Hx Kidney Stones. Denies: Hx Peritoneal Dialysis Psychiatric Medical History: Reports: Hx Bipolar Disorder, Hx Depression, Hx Schizoaffective Disorder, Hx Schizophrenia Past Surgical History: Reports: Hx Cholecystectomy, Hx Kidney (Renal Surgery) - Immunizations Hx Diphtheria, Pertussis, Tetanus Vaccination: Yes <VENESSA KIDD - Last Filed: 11/13/16 14:43> - General Information source: Patient - Social History Smoking Status: Unknown if Ever Smoked Frequency of alcohol use: None Drug Abuse: None Lives with: Alone <ASHTYN DÍAZ - Last Filed: 11/13/16 15:03> Review of Systems - Review of Systems Constitutional: denies: Chills, Fever Cardiovascular: denies: Chest pain, Palpitations Gastrointestinal: denies: Diarrhea, Vomiting -: Yes All other systems reviewed and negative <SAHTYN DÍAZ - Last Filed: 11/13/16 15:03> Physical Exam - Vital signs Interpretation: Hypertensive - General General appearance: Appears well, Alert - HEENT Head: Normocephalic, Atraumatic Eyes: Normal Pupils: PERRL - Respiratory Respiratory status: No respiratory distress Chest status: Nontender Breath sounds: Normal Chest palpation: Normal - Cardiovascular Rhythm: Regular Heart sounds: Normal auscultation Murmur: No - Abdominal Inspection: Normal Distension: No distension Bowel sounds: Normal Tenderness: Nontender Organomegaly: No organomegaly - Back Back: Normal, Nontender - Extremities General upper extremity: Normal inspection, Nontender, Normal color, Normal ROM , Normal temperature General lower extremity: Normal inspection, Nontender, Normal color, Normal ROM , Normal temperature, Normal weight bearing. No: Ariel's sign - Neurological Neuro grossly intact: Yes Cognition: Normal Orientation: AAOx4 [place] Coma Scale Eye Opening: Spontaneous Angie Coma Scale Verbal: Oriented [place] Coma Scale Motor: Obeys Commands [place] Coma Scale Total: 15 Speech: Normal Motor strength normal: LUE, RUE, LLE, RLE Sensory: Normal - Psychological Associated symptoms: Normal affect, Normal mood - Skin Skin Temperature: Warm Skin Moisture: Dry Skin Color: Normal <ASHTYN DÍAZ - Last Filed: 11/13/16 15:03> - Vital signs Vitals: Temp Pulse Resp BP Pulse Ox 97.7 F 59 L 18 182/95 H 98 11/13/16 12:31 11/13/16 12:31 11/13/16 12:31 11/13/16 12:31 11/13/16 12:31 - Vital Signs Vital signs: Temp Pulse Resp BP Pulse Ox 97.7 F 59 L 18 182/95 H 98 11/13/16 12:31 11/13/16 12:31 11/13/16 12:31 11/13/16 12:31 11/13/16 12:31 Discharge <VENESSA KIDD - Last Filed: 11/13/16 14:43> <ASHTYN DÍAZ - Last Filed: 11/13/16 15:03> - Discharge Clinical Impression: Headache Schizophrenia Qualifiers: Schizophrenia type: paranoid schizophrenia Qualified Code(s): F20.0 - Paranoid schizophrenia Condition: Stable Disposition: HOME, SELF-CARE Additional Instructions: Schizophrenia Schizophrenia is a chemical disorder that affects how the brain functions. The exact cause is unknown, but it tends to run in families. It is NOT caused by emotional trauma. Schizophrenia causes disordered thinking, including unusual beliefs and inability to "process" happenings around the patient. Patients with schizophrenia benefit greatly from medicine. These medicines are called antipsychotics. Never stop the medicine without the doctor 's approval. Counselling may help the patient deal with his disease. Schizophrenics require a very ordered environment. Stresses and sudden changes may bring out symptoms. Drugs and alcohol abuse may become problems. Contact the counsellor or crisis line if there are thoughts of suicide or of harming others, or if you become aware of unusual thoughts or beliefs On your behalf, ANABELLA BERGERON was contacted and Arely will meet you at your hose Saturday morning at 0930. Please be available so she can help you resume services and see their MD. You ahve been provided a list of resources to assist you. Referrals: [facility] [Provider Group] - 11/16/16 9:30 am (Please be home for Arely with ELYSSA to meet with you )
[2016-11-13 15:21] VITALS: BP 171/89
== END 2016-11-13 15:01 | disposition home or self-care (01) ==
LOC: ER 12:18
DX: R51 Headache (principal); F20.0 Paranoid schizophrenia; R42 Dizziness and giddiness; I10 Essential (primary) hypertension; Z87.442 Personal history of urinary calculi; Z90.49 Acquired absence of other specified parts of digestive tract
CPT/HCPCS: 99283

== ENCOUNTER 2016-11-21 23:45 | Emergency (ER) | payer MEDICARE, MEDICAID ==
[2016-11-22] MEDS ORDERED: AMLODIPINE BESYLATE 5 MG TABLET PO ONE (03:02)
[2016-11-22] MEDS ORDERED: ATENOLOL 50 MG TABLET PO ONE (03:02)
[2016-11-22] MEDS ORDERED: ACETAMINOPHEN 325 MG TABLET PO ONE (03:03)
--- NOTE | 2016-11-22 03:13 | ER Document Report ---
ED General - General Chief Complaint: High Blood Pressure Stated Complaint: HEADACHE Time Seen by Provider: 11/22/16 02:52 Notes: Patient is a 61-year-old male who comes emergency department for chief complaint of a headache over the past couple of days, he states he is out of his blood pressure medication and when he is out he frequently gets headaches. He states his headache was better earlier and it is resolved now. He denies any vomiting, visual changes, focal numbness or weakness, or any current symptoms. Past medical history also includes schizoaffective disorder, depression, anxiety. He denies SI or HI, he states he has had trouble with depression this past year but he is doing better, he states he has just not made it back to his primary care physician. TRAVEL OUTSIDE OF THE [place] IN LAST 30 DAYS: No - Related Data Allergies/Adverse Reactions: No Known Allergies Allergy (Verified 11/13/16 12:32) Past Medical History - General Information source: Patient - Social History Smoking Status: Never Smoker Frequency of alcohol use: None Drug Abuse: None Lives with: Alone Family History: None Patient has suicidal ideation: No Patient has homicidal ideation: No - Past Medical History Cardiac Medical History: Reports: Hx Hypertension Pulmonary Medical History: Denies: Hx COPD Neurological Medical History: Denies: Hx Seizures Renal/ Medical History: Reports: Hx Kidney Stones. Denies: Hx Peritoneal Dialysis Psychiatric Medical History: Reports: Hx Bipolar Disorder, Hx Depression, Hx Schizoaffective Disorder, Hx Schizophrenia Past Surgical History: Reports: Hx Cholecystectomy, Hx Kidney (Renal Surgery) - Immunizations Hx Diphtheria, Pertussis, Tetanus Vaccination: Yes Review of Systems - Review of Systems Constitutional: No symptoms reported EENT: No symptoms reported Cardiovascular: See HPI Respiratory: No symptoms reported Gastrointestinal: No symptoms reported Genitourinary: No symptoms reported Male Genitourinary: No symptoms reported Musculoskeletal: No symptoms reported Skin: No symptoms reported Hematologic/Lymphatic: No symptoms reported Neurological/Psychological: See HPI Physical Exam - Vital signs Vitals: Temp Pulse Resp BP Pulse Ox 97.8 F 87 18 178/99 H 96 11/21/16 23:47 11/21/16 23:47 11/21/16 23:47 11/21/16 23:47 11/21/16 23:47 Interpretation: Normal - General General appearance: Appears well, Alert In distress: None - HEENT Head: Normocephalic, Atraumatic Eyes: Normal Pupils: PERRL - Respiratory Respiratory status: No respiratory distress Chest status: Nontender Breath sounds: Normal Chest palpation: Normal - Cardiovascular Rhythm: Regular Heart sounds: Normal auscultation Murmur: No - Abdominal Inspection: Normal Distension: No distension Bowel sounds: Normal Tenderness: Nontender Organomegaly: No organomegaly - Back Back: Normal, Nontender - Extremities General upper extremity: Normal inspection, Nontender, Normal color, Normal ROM , Normal temperature General lower extremity: Normal inspection, Nontender, Normal color, Normal ROM , Normal temperature, Normal weight bearing. No: Ariel's sign - Neurological Neuro grossly intact: Yes Cognition: Normal Orientation: AAOx4. No: Disoriented to person, Disoriented to place, Disoriented to time, Disoriented to events [place] Coma Scale Eye Opening: Spontaneous Angie Coma Scale Verbal: Oriented [place] Coma Scale Motor: Obeys Commands Angie Coma Scale Total: 15 Speech: Normal Cranial nerves: Normal Cerebellar coordination: Normal Motor strength normal: LUE, RUE, LLE, RLE Additional motor exam normals: Equal chemical pathologist Sensory: Normal - Psychological Associated symptoms: Normal affect, Normal mood. No: Aggressive, Agitated, Angry, Anxious, Confused, Flat affect, Paranoid - Skin Skin Temperature: Warm Skin Moisture: Dry Skin Color: Normal Course - Re-evaluation Re-evalutation: Patient is alert, friendly, coherent. He states he does not have a headache but he still requests Tylenol because he does not want to get another headache. Neurological examination is completely normal. Patient denies SI or HI, does not appear to be responding to any external stimuli, he is quite well- appearing. Patient requests refills of his blood pressure medications, he states he will perform close follow-up with his primary care. I have low suspicion of any acute intracranial abnormality. EKG reviewed from upfront, shows no concerning acute abnormalities. Patient provided with amlodipine and atenolol, his previous records were reviewed and these were found to be previously prescribed. He was given a dose of them here. He states he will follow up with primary care and return if he develop any concerning symptoms including severe headache, chest pain, vomiting , or any other concerning symptoms. - Vital Signs Vital signs: Temp Pulse Resp BP Pulse Ox 97.8 F 87 18 163/89 H 96 11/21/16 23:47 11/21/16 23:47 11/21/16 23:47 11/22/16 04:46 11/21/16 23:47 Discharge - Discharge Clinical Impression: Hypertension Qualifiers: Hypertension type: essential hypertension Qualified Code(s): I10 - Essential ( primary) hypertension Headache Qualifiers: Headache type: unspecified Headache chronicity pattern: acute headache Intractability: not intractable Qualified Code(s): R51 - Headache Condition: Stable Disposition: HOME, SELF-CARE Additional Instructions: Per records you were on atenolol 50 mg daily and amlodipine 5 mg daily. You have been given a two-week supply of this. Please call your provider today and schedule a close follow-up to avoid running out again. Return to the emergency department for any concerning symptoms including returned or severe headache, vomiting, or any other concerning symptoms. Prescriptions: Amlodipine Besylate 5 mg PO DAILY #14 tab Atenolol 50 mg PO DAILY #14 tablet Referrals: BRYANNA PERSON MD [Primary Care Provider] - Follow up tomorrow
[2016-11-22 04:55] VITALS: BP 163/89
--- NOTE | 2016-11-22 07:30 | EKG REPORT ---
SEVERITY:- ABNORMAL ECG - SINUS RHYTHM PROBABLE LEFT ATRIAL ABNORMALITY DIFFUSE NONSPECIFIC ST-T CHANGES : Confirmed by: Arian Roper MD 22-Nov-2016 07:29:38
== END 2016-11-22 04:55 | disposition home or self-care (01) ==
LOC: ER 23:45
DX: R51 Headache (principal); I10 Essential (primary) hypertension; F25.9 Schizoaffective disorder, unspecified; F32.9 Major depressive disorder, single episode, unspecified; F41.9 Anxiety disorder, unspecified
CPT/HCPCS: 93005; 99283; 93010; A9270 ×3

== ENCOUNTER 2016-11-29 13:49 | Emergency (ER) | payer MEDICARE, MEDICAID ==
--- NOTE | 2016-11-29 14:12 | ER Document Report ---
ED Medical Screen (RME) - General Chief Complaint: Headache Stated Complaint: DIFFICULTY BREATHING Time Seen by Provider: 11/29/16 14:10 Notes: Schizophrenic patient with many visits to the emergency department. States he comes in today because he is feeling very short of breath. He states his shortness of breath may be due to his severe depression. He states he is hearing voices constantly that tell him negative things. TRAVEL OUTSIDE OF THE [place] IN LAST 30 DAYS: No - Related Data Allergies/Adverse Reactions: No Known Allergies Allergy (Verified 11/29/16 13:53) Past Medical History - Social History Chew tobacco use (# tins/day): No Frequency of alcohol use: None Drug Abuse: None - Past Medical History Cardiac Medical History: Reports: Hx Hypertension Pulmonary Medical History: Denies: Hx COPD Neurological Medical History: Denies: Hx Seizures Renal/ Medical History: Reports: Hx Kidney Stones. Denies: Hx Peritoneal Dialysis Psychiatric Medical History: Reports: Hx Bipolar Disorder, Hx Depression, Hx Schizoaffective Disorder, Hx Schizophrenia Past Surgical History: Reports: Hx Cholecystectomy, Hx Kidney (Renal Surgery) - Immunizations Hx Diphtheria, Pertussis, Tetanus Vaccination: No Physical Exam - Vital signs Vitals: Temp Pulse Resp BP Pulse Ox 98.5 F 64 20 132/102 H 97 11/29/16 13:53 11/29/16 13:53 11/29/16 13:53 11/29/16 13:53 11/29/16 13:53 Course - Vital Signs Vital signs: Temp Pulse Resp BP Pulse Ox 98.5 F 64 20 132/102 H 97 11/29/16 13:53 11/29/16 13:53 11/29/16 13:53 11/29/16 13:53 11/29/16 13:53
--- NOTE | 2016-11-29 14:31 | RADIOLOGY REPORT (SQ) ---
EXAM DESCRIPTION: CHEST PA/LAT COMPLETED DATE/TIME: 11/29/2016 2:23 pm REASON FOR STUDY: sob COMPARISON: 04/09/2016 and 05/25/2015. EXAM PARAMETERS: NUMBER OF VIEWS: two views TECHNIQUE: Digital Frontal and Lateral radiographic views of the chest acquired. RADIATION DOSE: NA LIMITATIONS: none FINDINGS: LUNGS AND PLEURA: Again seen are chronic interstitial changes. No lobar infiltrates, mass es or pneumothorax. No pleural effusion. MEDIASTINUM AND HILAR STRUCTURES: No masses or contour abnormalities. HEART AND VASCULAR STRUCTURES: Heart normal size. No evidence for failure. BONES: No acute findings. HARDWARE: None in the chest. OTHER: No other significant finding. IMPRESSION: STABLE CHRONIC INTERSTITIAL CHANGES. NO ACUTE RADIOGRAPHIC FINDING IN THE CHEST. TECHNICAL DOCUMENTATION: JOB ID: [id number] [employer]- All Rights Reserved
[2016-11-29 14:36] LABS: ABSOLUTE EOSINOPHILS # (AUTO) 0.2 10^3/uL (0.0-0.6); ABSOLUTE LYMPHOCYTES (AUTO) 1.5 10^3/uL (0.5-4.7); ABSOLUTE MONOCYTES (AUTO) 0.6 10^3/uL (0.1-1.4); ABSOLUTE NEUT (AUTO) 4.4 10^3/uL (1.7-8.2); BASOPHILS % (AUTO) 0.6 % (0-2); HEMATOCRIT 44.3 % (37.9-51.0); HEMOGLOBIN 15.5 g/dL (13.5-17.0); HGB HCT DIFFERENCE 2.2; LYMPHOCYTES % (AUTO) 22.3 % (13-45); MEAN CORPUSCULAR HEMOGLOBIN 31.2 pg (27.0-33.4); MEAN CORPUSCULAR VOLUME 89 fl (80-97); MONOCYTES % (AUTO) 8.5 % (3-13); RED BLOOD COUNT 4.98 10^6/uL (4.35-5.55); RED CELL DISTRIBUTION WIDTH 13.8 % (11.5-14.0); SEGMENTED NEUTROPHILS % (AUTO) 65.6 % (42-78); WHITE BLOOD COUNT 6.7 10^3/uL (4.0-10.5)
[2016-11-29 14:55] LABS: ALANINE AMINOTRANSFERASE 129 U/L (21-72); ALBUMIN 4.4 g/dL (3.5-5.0); ALKALINE PHOSPHATASE 101 U/L (38-126); ANION GAP 10 (5-19); ASPARTATE AMINO TRANSFERASE 81 U/L (17-59); BILIRUBIN,DIRECT 0.4 mg/dL (0.0-0.4); BILIRUBIN,TOTAL 0.7 mg/dL (0.2-1.3); BLOOD UREA NITROGEN 12 mg/dL (7-20); CALCIUM 9.7 mg/dL (8.4-10.2); CARBON DIOXIDE 23 mmol/L (22-30); CHLORIDE 106 mmol/L (98-107); CREATININE RESULT 1.09 mg/dL (0.52-1.25); GLUCOSE 115 mg/dL (75-110); POTASSIUM 4.2 mmol/L (3.6-5.0); SODIUM 138.9 mmol/L (137-145); TOTAL PROTEIN 7.4 g/dL (6.3-8.2)
--- NOTE | 2016-11-29 14:58 | ER Document Report ---
ED General - General Chief Complaint: Headache Stated Complaint: DIFFICULTY BREATHING Time Seen by Provider: 11/29/16 14:10 Mode of Arrival: Ambulatory Information source: Patient TRAVEL OUTSIDE OF THE [place] IN LAST 30 DAYS: No - HPI Patient complains to provider of: Chest tightness, shortness of breath, depression Onset: This morning Onset/Duration: Gradual Quality of pain: No pain Associated symptoms: Shortness of breath Notes: Patient is a 61-year-old male presenting to the emergency room today complaining of chest tightness with difficulty breathing at times, is also complaining of depression, states his chest tightness started earlier this morning around 11 AM, states that he feels as though is having difficulty taking a deep or full breath, denies any cough, denies any history of similar symptoms previously, which he seems more concerned about is his worsening depression, stating that he has had depression for years, is currently hooked up with services to the act team but states that they treat him like he is stupid, I asked him if he was currently in any therapy, to which he stated "I spent $30 to have the grass to be cut all summer long", he does report that his girlfriend approximately 4 months ago and since then he feels alone, states he tries to spike up a conversation with strangers but generally they do not want to interact with him, states he is ready to give up, patient is tearful at time of evaluation but denies any intent of self-harm or suicide - Related Data Allergies/Adverse Reactions: No Known Allergies Allergy (Verified 11/29/16 13:53) Past Medical History - General Information source: Patient - Social History Smoking Status: Never Smoker Chew tobacco use (# tins/day): No Frequency of alcohol use: None Drug Abuse: None Family History: None - Past Medical History Cardiac Medical History: Reports: Hx Hypertension Pulmonary Medical History: Denies: Hx COPD Neurological Medical History: Denies: Hx Seizures Renal/ Medical History: Reports: Hx Kidney Stones. Denies: Hx Peritoneal Dialysis Psychiatric Medical History: Reports: Hx Bipolar Disorder, Hx Depression, Hx Schizoaffective Disorder, Hx Schizophrenia Past Surgical History: Reports: Hx Cholecystectomy, Hx Kidney (Renal Surgery) - Immunizations Hx Diphtheria, Pertussis, Tetanus Vaccination: No Review of Systems - Review of Systems Constitutional: No symptoms reported EENT: No symptoms reported Cardiovascular: Chest pain Respiratory: No symptoms reported Gastrointestinal: No symptoms reported Genitourinary: No symptoms reported Male Genitourinary: No symptoms reported Musculoskeletal: No symptoms reported Skin: No symptoms reported Hematologic/Lymphatic: No symptoms reported Neurological/Psychological: See HPI -: Yes All other systems reviewed and negative Physical Exam - Vital signs Vitals: Temp Pulse Resp BP Pulse Ox 98.5 F 64 20 132/102 H 97 11/29/16 13:53 11/29/16 13:53 11/29/16 13:53 11/29/16 13:53 11/29/16 13:53 Interpretation: Normal - General General appearance: Appears well, Alert - HEENT Head: Normocephalic, Atraumatic Eyes: Normal Pupils: PERRL - Respiratory Respiratory status: No respiratory distress Chest status: Nontender Breath sounds: Normal Chest palpation: Normal - Cardiovascular Rhythm: Regular Heart sounds: Normal auscultation Murmur: No - Abdominal Inspection: Normal Distension: No distension Bowel sounds: Normal Tenderness: Nontender Organomegaly: No organomegaly - Back Back: Normal, Nontender - Extremities General upper extremity: Normal inspection, Nontender, Normal color, Normal ROM , Normal temperature General lower extremity: Normal inspection, Nontender, Normal color, Normal ROM , Normal temperature, Normal weight bearing. No: Ariel's sign - Neurological Neuro grossly intact: Yes Cognition: Normal Orientation: AAOx4 [place] Coma Scale Eye Opening: Spontaneous [place] Coma Scale Verbal: Oriented [place] Coma Scale Motor: Obeys Commands [place] Coma Scale Total: 15 Speech: Normal Motor strength normal: LUE, RUE, LLE, RLE Sensory: Normal - Psychological Associated symptoms: Depressed, Tearful - Skin Skin Temperature: Warm Skin Moisture: Dry Skin Color: Normal Course - Re-evaluation Re-evalutation: 11/29/16 18:08 Patient has been resting comfortably in no acute distress, lab and imaging findings unremarkable, symptoms likely related to mental health diagnosis, mental health team has evaluated patient, he is well-known to them, they made a call with patient's permission to act team requesting a referral for patient to be placed in assisted living at his request, otherwise patient is medically cleared for discharge, and provided with information for follow-up, patient acknowledges understanding and agreement with this plan - Vital Signs Vital signs: Temp Pulse Resp BP Pulse Ox 98.5 F 64 20 132/102 H 97 11/29/16 13:53 11/29/16 13:53 11/29/16 13:53 11/29/16 13:53 11/29/16 13:53 - Laboratory Result Diagrams: 11/29/16 14:18 11/29/16 14:18 Laboratory results interpreted by me: 11/29/16 14:18 Glucose 115 H AST 81 H ALT 129 H - Diagnostic Test Radiology reviewed: Image reviewed, Reports reviewed - EKG Interpretation by Me EKG shows normal: Sinus rhythm Rate: Normal Rhythm: NSR Discharge - Discharge Clinical Impression: Shortness of breath Depression Qualifiers: Depression Type: unspecified Qualified Code(s): F32.9 - Major depressive disorder, single episode, unspecified Condition: Stable Disposition: HOME, SELF-CARE Instructions: Depression (OM) Additional Instructions: Follow up with your primary care provider and [facility] Team in one to 2 days. Return to the emergency room immediately if symptoms worsen or any additional concerns. Referrals: BRYANNA PERSON MD [Primary Care Provider] - Follow up as needed
[2016-11-29 18:09] VITALS: BP 162/90
--- NOTE | 2016-11-30 03:57 | EKG REPORT ---
SEVERITY:- ABNORMAL ECG - SINUS RHYTHM NONSPECIFIC T ABNORMALITIES, DIFFUSE LEADS BORDERLINE PROLONGED QT INTERVAL : Confirmed by: Alisson Andrade MD 30-Nov-2016 03:56:16
== END 2016-11-29 17:40 | disposition home or self-care (01) ==
LOC: ER 13:49
DX: R06.02 Shortness of breath (principal); F32.9 Major depressive disorder, single episode, unspecified; R51 Headache
CPT/HCPCS: 36415; 71020; 80053; 84484; 85025; 93005; 93010; 99284

== ENCOUNTER 2016-12-09 02:43 | Emergency (ER) | payer MEDICARE, MEDICAID ==
[2016-12-09] MEDS ORDERED: HYDROCHLOROTHIAZIDE 25 MG TABLET PO ONE (03:24)
[2016-12-09] MEDS ORDERED: ACETAMINOPHEN 325 MG TABLET PO ONE (03:24)
[2016-12-09] MEDS ORDERED: BUTALB/ACETAMINOPHEN/CAFFEINE 1 TAB EACH PO ONE (03:28)
[2016-12-09] MEDS ORDERED: IBUPROFEN 600 MG TABLET PO ONE (03:29)
--- NOTE | 2016-12-09 03:30 | ER Document Report ---
ED General - General Chief Complaint: Headache Stated Complaint: HEADACHE Time Seen by Provider: 12/09/16 03:04 Notes: Patient is a 61-year-old male with a past medical history of hypertension, multiple mental health issues who presents with a headache. Patient states that the headache started several hours prior to arrival, was gradual in onset and got progressively worse after starting. He does describe as a dull, constant, mild bitemporal pain. Nothing improves or worsens the pain. Patient states he feels this is related to his blood pressure. He does arrive by EMS. He has presented to the emergency department on multiple prior occasions for similar. He denies any focal weakness, numbness, vomiting or confusion. TRAVEL OUTSIDE OF THE [place] IN LAST 30 DAYS: No - Related Data Allergies/Adverse Reactions: No Known Allergies Allergy (Verified 11/29/16 13:53) Past Medical History - General Information source: Patient - Social History Smoking Status: Never Smoker Frequency of alcohol use: None Drug Abuse: None Lives with: Spouse/Significant other Family History: Reviewed & Not Pertinent - Past Medical History Cardiac Medical History: Reports: Hx Hypertension Pulmonary Medical History: Denies: Hx COPD Neurological Medical History: Denies: Hx Seizures Renal/ Medical History: Reports: Hx Kidney Stones. Denies: Hx Peritoneal Dialysis Psychiatric Medical History: Reports: Hx Bipolar Disorder, Hx Depression, Hx Schizoaffective Disorder, Hx Schizophrenia Past Surgical History: Reports: Hx Cholecystectomy, Hx Kidney (Renal Surgery) - Immunizations Hx Diphtheria, Pertussis, Tetanus Vaccination: No Review of Systems - Review of Systems Notes: Constitutional: Negative for fever. HENT: Negative for sore throat. Eyes: Negative for visual changes. Cardiovascular: Negative for chest pain. Respiratory: Negative for shortness of breath. Gastrointestinal: Negative for abdominal pain, vomiting or diarrhea. Genitourinary: Negative for dysuria. Musculoskeletal: Negative for back pain. Skin: Negative for rash. Neurological: Positive for headache. Negative for weakness or numbness 10 point ROS negative except as marked above and in HPI. Physical Exam - Vital signs Vitals: Temp Pulse Resp BP Pulse Ox 98.5 F 55 L 18 154/86 H 97 12/09/16 03:27 12/09/16 03:27 12/09/16 03:27 12/09/16 03:27 12/09/16 03:27 Interpretation: Hypertensive Notes: PHYSICAL EXAMINATION: GENERAL: Well-appearing, well-nourished and in no acute distress. HEAD: Atraumatic, normocephalic. EYES: Pupils equal round and reactive to light, extraocular movements intact, sclera anicteric, conjunctiva are normal. ENT: nares patent, oropharynx clear without exudates. Moist mucous membranes. NECK: Normal range of motion, supple without lymphadenopathy LUNGS: Breath sounds clear to auscultation bilaterally and equal. No wheezes rales or rhonchi. HEART: Regular rate and rhythm without murmurs ABDOMEN: Soft, nontender, normoactive bowel sounds. No guarding, no rebound. No masses appreciated. EXTREMITIES: Normal range of motion, no pitting or edema. No cyanosis. NEUROLOGICAL: Face symmetric. Tongue protrudes midline. Extraocular motions intact. Pupils are 2 mm and equally reactive. Normal speech, normal gait. 5 out of 5 strength in both the distal and proximal upper and lower extremities bilaterally. Sensation is grossly intact throughout. Finger to nose testing normal. Pronator drift normal. PSYCH: Normal mood, normal affect. SKIN: Warm, Dry, normal turgor, no rashes or lesions noted. Course - Re-evaluation Re-evalutation: 12/09/16 03:27 Patient presents to emergency room complaining of a headache that started while he was a gas station prior to arrival. Patient feels that this is related to his blood pressure being elevated. States the headache was gradual in onset and progressively worse since that time. He has been seen in the emergency department repeatedly for the same issue and he feels it is related to his blood pressure. He has no focal neurologic deficits on examination. His clinical history is not consistent with an acute subarachnoid hemorrhage I do not believe emergent CT imaging of the head is indicated. Moreover I do not believe any labs are indicated as I do not believe this would help differentiate the type of headache the patient is presenting with. His blood pressure was minimally elevated for EMS at 168 systolic and I doubt any end- organ damage at this point. He will be given Tylenol for the headache and will also be given a dose of hydrochlorthiazide here in the emergency department. He does have metoprolol with him from Dr. Benson with refills. At this time will discharge with return precautions and follow-up recommendations. Verbal discharge instructions given a the bedside and opportunity for questions given. Medication warnings reviewed. Patient is in agreement with this plan and has verbalized understanding of return precautions and the need for primary care follow-up in the next 24-72 hours. - Vital Signs Vital signs: Temp Pulse Resp BP Pulse Ox 98.5 F 55 L 18 154/86 H 97 12/09/16 03:27 12/09/16 03:27 12/09/16 03:27 12/09/16 03:27 12/09/16 03:27 Discharge - Discharge Clinical Impression: Essential hypertension Headache Qualifiers: Headache type: unspecified Headache chronicity pattern: acute headache Intractability: not intractable Qualified Code(s): R51 - Headache Condition: Stable Disposition: HOME, SELF-CARE Additional Instructions: You have been seen in the Emergency Department (ED) for a headache. Please use Tylenol (acetaminophen) or Motrin (ibuprofen) as needed for symptoms, but only as written on the box. As we have discussed, please follow up with your primary care doctor as soon as possible regarding today's ED visit and your headache symptoms. Call your doctor or return to the ED if you have a worsening headache, sudden and severe headache, confusion, slurred speech, facial droop, weakness or numbness in any arm or leg, extreme fatigue, or other symptoms that concern you.
[2016-12-09 04:11] VITALS: BP 157/89
== END 2016-12-09 04:11 | disposition home or self-care (01) ==
LOC: ER 02:43
DX: I10 Essential (primary) hypertension (principal); R51 Headache; Z87.442 Personal history of urinary calculi; Z90.49 Acquired absence of other specified parts of digestive tract
CPT/HCPCS: 99283; A9270 ×2; J3490

== ENCOUNTER 2016-12-13 15:50 | Emergency (ER) | payer MEDICARE, MEDICAID ==
--- NOTE | 2016-12-13 16:43 | ER Document Report ---
ED Psych Disorder / Suicide - General Chief Complaint: Psych Problem Stated Complaint: IVC WITH PAPERS Time Seen by Provider: 12/13/16 16:14 Mode of Arrival: Ambulatory Information source: Patient Notes: This is a 61-year-old man with schizoaffective disorder with neurocognitive disorder who is brought in by [employer] because of aggressive behavior, agitation , threatening neighbors and friends. Patient is demanding food and wants me to go out to [employer] and get him a hamburger and fries. He is not willing to talk about anything else. TRAVEL OUTSIDE OF THE [place] IN LAST 30 DAYS: No - HPI Patient complains to provider of: Aggression, Agitated Onset: Just prior to arrival Onset was: Gradual Quality of pain: No pain Severity: None Pain Level: Denies Suicide Risk Factors: Chronic illness, Loss of rational thought, Male Situational problems related to: denies: Daughter, Legal problems, Lost job, Parent, Recent , Recent divorce, School, Sexual orientation, Significant other, Son, Spouse, Work, Other Suicide Attempt Method: denies: Drowning, Hanging, Motor Vehicle, Overdose, Shooting, Stabbing/Cutting, Train, Other Overdose of: No: Acetominophen, Alcohol, Anticholinergic, Anti-depressants, Benzodiazepine, Salicylate, Tricyclic Antidepressant, Other Injury to: No: Generalized, Abdomen, Ankle, Back, Breast, Buttocks, Chest, Elbow , Epigastric, Flank, Face, Finger, Foot, Hand, Head, Hip, Knee, Leg, Lower extremity, Mouth, Neck, Pelvic, Penis, Perineum, Rectum, Shoulder, Testicle, Thigh, Throat, Trunk, Upper extremity, Vagina, Wrist Normal mood: No Associated symptoms: Aggressive, Agitated, Circumferential speech, Tangential speech Similar symptoms previously: Yes Recently seen / treated by doctor: Yes - Related Data Allergies/Adverse Reactions: No Known Allergies Allergy (Verified 11/29/16 13:53) Past Medical History - General Information source: Patient - Social History Smoking Status: Unknown if Ever Smoked Cigarette use (# per day): No Chew tobacco use (# tins/day): No Frequency of alcohol use: UNKNOWN Drug Abuse: None Lives with: Family Family History: Reviewed & Not Pertinent Patient has suicidal ideation: No Patient has homicidal ideation: No - Past Medical History Cardiac Medical History: Reports: Hx Hypertension Pulmonary Medical History: Denies: Hx COPD Neurological Medical History: Denies: Hx Seizures Renal/ Medical History: Reports: Hx Kidney Stones. Denies: Hx Peritoneal Dialysis Psychiatric Medical History: Reports: Hx Bipolar Disorder, Hx Depression, Hx Schizoaffective Disorder, Hx Schizophrenia Past Surgical History: Reports: Hx Cholecystectomy, Hx Kidney (Renal Surgery) - Immunizations Hx Diphtheria, Pertussis, Tetanus Vaccination: No Review of Systems - Review of Systems Constitutional: denies: Chills, Fever EENT: No symptoms reported Cardiovascular: No symptoms reported Respiratory: No symptoms reported Gastrointestinal: No symptoms reported Genitourinary: No symptoms reported Male Genitourinary: No symptoms reported Musculoskeletal: No symptoms reported Skin: No symptoms reported Hematologic/Lymphatic: No symptoms reported Neurological/Psychological: See HPI Physical Exam - Vital signs Vitals: Temp Pulse Resp BP Pulse Ox 97.8 F 126 H 24 H 185/111 H 99 12/13/16 17:06 12/13/16 17:06 12/13/16 17:06 12/13/16 17:06 12/13/16 17:06 Notes: Physical exam: GENERAL: Agitated 61-year-old man, alert and oriented 3, ambulating around the room. HEAD: Atraumatic, normocephalic. EYES: Pupils equal round and reactive to light, extraocular movements intact, sclera anicteric, conjunctiva are normal. ENT: TMs normal, nares patent, oropharynx clear without exudates. Moist mucous membranes. NECK: Normal range of motion, supple without obvious mass or JVD. LUNGS: Breath sounds clear to auscultation bilaterally and equal. No wheezes rales or rhonchi. HEART: Regular rate and rhythm without murmurs, rubs or gallops. ABDOMEN: Soft, normoactive bowel sounds. No tenderness to palpation. No guarding, no rebound. No masses appreciated. EXTREMITIES: Normal range of motion, no pitting or edema. No clubbing or cyanosis. NEUROLOGICAL: Cranial nerves II through XII grossly intact. Normal speech, moving all extremities. PSYCH: He appears emotionally labile and easily agitated. SKIN: Warm, Dry, normal turgor, no rashes or lesions noted. Course - Vital Signs Vital signs: Temp Pulse Resp BP Pulse Ox 97.8 F 126 H 24 H 185/111 H 99 12/13/16 17:06 12/13/16 17:06 12/13/16 17:06 12/13/16 17:06 12/13/16 17:06 - Laboratory Result Diagrams: 12/13/16 16:30 12/13/16 16:30 Laboratory results interpreted by me: 12/13/16 16:30 Potassium 3.3 L Carbon Dioxide 21 L Creatinine 1.37 H Est GFR (Non-Af Amer) 53 L Glucose 139 H Calcium 10.4 H AST 60 H Total Protein 9.0 H Albumin 5.2 H - Diagnostic Test Radiology reviewed: Image reviewed, Reports reviewed - MRI of the brain shows no acute findings. There is evidence of old lacunar infarcts in the right and left lateral basal ganglia. - EKG Interpretation by Me Rate: Tachycardia Rhythm: NSR - EKG shows sinus tachycardia with a ventricular rate of 124, no acute ST-T wave changes Discharge - Discharge Clinical Impression: Psychosis Clinical Impression: (Ruled Out): Right facial numbness Condition: Stable Disposition: PSYCH HOSP/UNIT Referrals: BRYANNA PERSON MD [Primary Care Provider] - Follow up as needed
[2016-12-13] MEDS ORDERED: OLANZAPINE 5 MG TAB.RAPDIS PO ONE (16:45)
[2016-12-13 16:54] LABS: ABSOLUTE EOSINOPHILS # (AUTO) 0.1 10^3/uL (0.0-0.6); ABSOLUTE LYMPHOCYTES (AUTO) 1.1 10^3/uL (0.5-4.7); ABSOLUTE MONOCYTES (AUTO) 0.8 10^3/uL (0.1-1.4); ABSOLUTE NEUT (AUTO) 5.4 10^3/uL (1.7-8.2); BASOPHILS % (AUTO) 0.6 % (0-2); EOSINOPHILS % (AUTO) 1.8 % (0-6); HEMATOCRIT 46.8 % (37.9-51.0); HEMOGLOBIN 16.1 g/dL (13.5-17.0); HGB HCT DIFFERENCE 1.5; LYMPHOCYTES % (AUTO) 14.7 % (13-45); MEAN CORPUSCULAR HEMOGLOBIN 30.6 pg (27.0-33.4); MEAN CORPUSCULAR HGB CONC 34.3 g/dL (32.0-36.0); MEAN CORPUSCULAR VOLUME 89 fl (80-97); MONOCYTES % (AUTO) 10.1 % (3-13); RED BLOOD COUNT 5.24 10^6/uL (4.35-5.55); RED CELL DISTRIBUTION WIDTH 13.7 % (11.5-14.0); SEGMENTED NEUTROPHILS % (AUTO) 72.8 % (42-78); WHITE BLOOD COUNT 7.5 10^3/uL (4.0-10.5)
[2016-12-13 17:13] LABS: ALANINE AMINOTRANSFERASE 61 U/L (21-72); ALBUMIN 5.2 g/dL (3.5-5.0); ALKALINE PHOSPHATASE 113 U/L (38-126); ANION GAP 18 (5-19); ASPARTATE AMINO TRANSFERASE 60 U/L (17-59); BILIRUBIN,DIRECT 0.4 mg/dL (0.0-0.4); BILIRUBIN,TOTAL 0.8 mg/dL (0.2-1.3); BLOOD UREA NITROGEN 18 mg/dL (7-20); CALCIUM 10.4 mg/dL (8.4-10.2); CARBON DIOXIDE 21 mmol/L (22-30); CHLORIDE 104 mmol/L (98-107); CREATININE RESULT 1.37 mg/dL (0.52-1.25); GLUCOSE 139 mg/dL (75-110); POTASSIUM 3.3 mmol/L (3.6-5.0)
[2016-12-13 17:14] LABS: ALCOHOL < 10 mg/dL (NONE DETECTED)
[2016-12-13] MEDS: DIVALPROEX SODIUM 500 MG TAB.SR.24H PO SCH (17:23)
[2016-12-13] MEDS ORDERED: OLANZAPINE INJ/PF 10 MG SDV IM ONE (17:25)
[2016-12-13 17:42] LABS: THYROID STIMULATING HORMONE 1.03 uIU/mL (0.47-4.68)
[2016-12-13] MEDS ORDERED: BUSPIRONE HCL 10 MG TABLET PO SCH (22:00)
--- NOTE | 2016-12-14 08:16 | EKG REPORT ---
SEVERITY:- ABNORMAL ECG - SINUS TACHYCARDIA PROBABLE LEFT ATRIAL ABNORMALITY NONSPECIFIC ST-T CHANGES, DIFFUSE LEADS : Confirmed by: Arian Roper MD 14-Dec-2016 08:15:50
--- NOTE | 2016-12-14 10:10 | ER Document Report ---
Doctor's Note Notes: 12/14/16 10:09 Rounds: Chart reviewed and patient interviewed. Patient is being evaluated for schizophrenia and aggressive behavior. Patient is calm at this time. Patient denies aggression towards anyone specifically. Labs were essentially normal. Vital signs essentially normal. Patient appears to be medically stable for transfer or discharge. Huber Salazar MD
[2016-12-14] MEDS ORDERED: OLANZAPINE INJ/PF 10 MG SDV IM ONE (10:56)
[2016-12-14] MEDS: DIVALPROEX SODIUM 500 MG TAB.SR.24H PO SCH (14:13)
[2016-12-14 22:00] VITALS: BP 152/103
== END 2016-12-14 15:37 | disposition home or self-care (01) ==
LOC: ER 15:50
DX: F25.0 Schizoaffective disorder, bipolar type (principal); R45.6 Violent behavior; R41.9 Unspecified symptoms and signs involving cognitive functions and awareness; I10 Essential (primary) hypertension; R00.0 Tachycardia, unspecified; Z91.14 Patient's other noncompliance with medication regimen
CPT/HCPCS: 36415; 80053; 80307; 84439; 84443; 85025; 93005; 93010; 96372; 99285

== ENCOUNTER 2017-01-26 22:48 | Observation (INO) | payer MEDICARE, MEDICAID ==
--- NOTE | 2017-01-26 23:17 | ER Document Report ---
ED General - General Chief Complaint: Chest Pain Stated Complaint: CHEST PAIN WITH SHORT OF BREATH Time Seen by Provider: 01/26/17 23:06 Mode of Arrival: Ambulatory Information source: Patient Notes: 61-year-old male extensive psychiatric history as well as history of hypertension presents with complaints of chest pain. Patient notes it is midsternal associated with shortness of breath. Patient notes this shortness of breath is in fact ongoing now for months but the chest pain is new. He said his pressure sensation Patient has never had a stress test or a cardiac workup TRAVEL OUTSIDE OF THE [place] IN LAST 30 DAYS: No - HPI Onset: Just prior to arrival Onset/Duration: Sudden Quality of pain: Pressure Severity: Mild Pain Level: 1 Associated symptoms: Chest pain Exacerbated by: Denies Relieved by: Denies Similar symptoms previously: No Recently seen / treated by doctor: No - Related Data Allergies/Adverse Reactions: No Known Allergies Allergy (Verified 11/29/16 13:53) Past Medical History - Social History Smoking Status: Never Smoker Cigarette use (# per day): No Chew tobacco use (# tins/day): No Smoking Education Provided: No Family History: Reviewed & Not Pertinent - Past Medical History Cardiac Medical History: Reports: Hx Hypertension Pulmonary Medical History: Denies: Hx COPD Neurological Medical History: Denies: Hx Seizures Renal/ Medical History: Reports: Hx Kidney Stones. Denies: Hx Peritoneal Dialysis Psychiatric Medical History: Reports: Hx Bipolar Disorder, Hx Depression, Hx Schizoaffective Disorder, Hx Schizophrenia Past Surgical History: Reports: Hx Cholecystectomy, Hx Kidney (Renal Surgery) - Immunizations Hx Diphtheria, Pertussis, Tetanus Vaccination: No Review of Systems - Review of Systems Notes: REVIEW OF SYSTEMS: CONSTITUTIONAL : Denies fever, chills, or sweats. Denies recent illness. EENT: Denies eye, ear, throat, or mouth pain or symptoms. Denies nasal or sinus congestion or discharge. Denies throat, tongue, or mouth swelling or difficulty swallowing. CARDIOVASCULAR: Admits to chest pain RESPIRATORY: Admits shortness of breath GASTROINTESTINAL: Denies abdominal pain or distention. Denies nausea, vomiting , or diarrhea. Denies blood in vomitus, stools, or per rectum. Denies black, tarry stools. Denies constipation. GENITOURINARY: Denies difficulty urinating, painful urination, burning, frequency, blood in urine, or discharge. MUSCULOSKELETAL: Denies back or neck pain or stiffness. Denies joint pain or swelling. SKIN: Denies rash, lesions or sores. HEMATOLOGIC : Denies easy bruising or bleeding. LYMPHATIC: Denies swollen, enlarged glands. NEUROLOGICAL: Denies confusion or altered mental status. Denies passing out or loss of consciousness. Denies dizziness or lightheadedness. Denies headache. Denies weakness or paralysis or loss of use of either side. Denies problems with gait or speech. Denies sensory loss, numbness, or tingling. Denies seizures. PSYCHIATRIC: Denies anxiety or stress. Denies depression, suicidal ideation, or homicidal ideation. ALL OTHER SYSTEMS REVIEWED AND NEGATIVE. Dictation was performed using [employer] voice recognition software PHYSICAL EXAMINATION: GENERAL: Well-appearing, well-nourished and in no acute distress. HEAD: Atraumatic, normocephalic. EYES: Pupils equal round and reactive to light, extraocular movements intact, sclera anicteric, conjunctiva are normal. ENT: Nares patent, oropharynx clear without exudates. Moist mucous membranes. NECK: Normal range of motion, supple without lymphadenopathy LUNGS: Breath sounds clear to auscultation bilaterally and equal. No wheezes rales or rhonchi. HEART: Regular rate and rhythm without murmurs ABDOMEN: Soft, nontender, nondistended abdomen. No guarding, no rebound. No masses appreciated. Musculoskeletal: Normal range of motion, no pitting or edema. No cyanosis. NEUROLOGICAL: Cranial nerves grossly intact. Normal speech, normal gait. Normal sensory, motor exams PSYCH: Normal mood, normal affect. SKIN: Warm, Dry, normal turgor, no rashes or lesions noted. Physical Exam - Vital signs Vitals: Resp Pulse Ox 14 96 01/26/17 22:56 01/26/17 22:56 Course - Re-evaluation Re-evalutation: 01/27/17 00:47 Patient has very benign-appearing presentation for cardiac concerns, however given the complaint of chest pain and lack of cardiac workup in the past I will observe the patient overnight, Dr. Su was paged and made aware - Vital Signs Vital signs: Temp Pulse Resp BP Pulse Ox 16 127/76 H 95 01/27/17 00:02 01/27/17 00:01 01/27/17 00:02 - Laboratory Result Diagrams: 01/26/17 23:01 01/26/17 23:01 Laboratory results interpreted by me: 01/26/17 01/26/17 23:01 23:01 RDW 14.1 H Chloride 108 H Carbon Dioxide 21 L Glucose 114 H Direct Bilirubin 0.6 H Creatine Kinase 218 H - Diagnostic Test Radiology reviewed: Image reviewed, Reports reviewed - EKG Interpretation by Me EKG shows normal: Sinus rhythm, [place], Intervals, QRS Complexes Discharge - Discharge Clinical Impression: Chest pain Qualifiers: Chest pain type: unspecified Qualified Code(s): R07.9 - Chest pain, unspecified Condition: Stable Disposition: ADMITTED OBSERVATION Admitting Provider: Kelley Unit Admitted: Telemetry Referrals: BRYANNA PERSON MD [Primary Care Provider] - Follow up as needed
[2017-01-26 23:34] LABS: ABSOLUTE BASOPHILS # (AUTO) 0.1 10^3/uL (0.0-0.2); ABSOLUTE EOSINOPHILS # (AUTO) 0.2 10^3/uL (0.0-0.6); ABSOLUTE LYMPHOCYTES (AUTO) 1.6 10^3/uL (0.5-4.7); ABSOLUTE MONOCYTES (AUTO) 0.6 10^3/uL (0.1-1.4); ABSOLUTE NEUT (AUTO) 5.2 10^3/uL (1.7-8.2); BASOPHILS % (AUTO) 1.1 % (0-2); EOSINOPHILS % (AUTO) 2.7 % (0-6); HEMATOCRIT 39.6 % (37.9-51.0); HEMOGLOBIN 13.6 g/dL (13.5-17.0); HGB HCT DIFFERENCE 1.2; LYMPHOCYTES % (AUTO) 20.5 % (13-45); MEAN CORPUSCULAR HEMOGLOBIN 30.8 pg (27.0-33.4); MEAN CORPUSCULAR HGB CONC 34.4 g/dL (32.0-36.0); MEAN CORPUSCULAR VOLUME 90 fl (80-97); MONOCYTES % (AUTO) 8.2 % (3-13); RED BLOOD COUNT 4.41 10^6/uL (4.35-5.55); RED CELL DISTRIBUTION WIDTH 14.1 % (11.5-14.0); SEGMENTED NEUTROPHILS % (AUTO) 67.5 % (42-78); WHITE BLOOD COUNT 7.7 10^3/uL (4.0-10.5)
[2017-01-26 23:39] LABS: ALANINE AMINOTRANSFERASE 37 U/L (21-72); ALBUMIN 4.1 g/dL (3.5-5.0); ALKALINE PHOSPHATASE 72 U/L (38-126); ANION GAP 14 (5-19); ASPARTATE AMINO TRANSFERASE 25 U/L (17-59); BILIRUBIN,DIRECT 0.6 mg/dL (0.0-0.4); BILIRUBIN,TOTAL 0.7 mg/dL (0.2-1.3); BLOOD UREA NITROGEN 18 mg/dL (7-20); CALCIUM 9.3 mg/dL (8.4-10.2); CARBON DIOXIDE 21 mmol/L (22-30); CHLORIDE 108 mmol/L (98-107); CREATINE KINASE 218 U/L (55-170); CREATININE RESULT 1.14 mg/dL (0.52-1.25); GLUCOSE 114 mg/dL (75-110); POTASSIUM 3.9 mmol/L (3.6-5.0); SODIUM 142.9 mmol/L (137-145); TOTAL PROTEIN 6.9 g/dL (6.3-8.2)
--- NOTE | 2017-01-26 23:41 | RADIOLOGY REPORT (SQ) ---
EXAM DESCRIPTION: CHEST SINGLE VIEW COMPLETED DATE/TIME: 01/26/2017 11:20 pm REASON FOR STUDY: cp COMPARISON: 9.28.17 CT, 04/07/2016. EXAM PARAMETERS: NUMBER OF VIEWS: One view. TECHNIQUE: Single frontal radiographic view of the chest acquired. RADIATION DOSE: NA LIMITATIONS: None. FINDINGS: LUNGS AND PLEURA: [id number] reticular nodular interstitial markings without signifi cant interval worsening. Moderate lung volume. MEDIASTINUM AND HILAR STRUCTURES: No masses. Contour normal. HEART AND VASCULAR STRUCTURES: Heart normal in size. Normal vasculature. BONES: No acute findings. HARDWARE: None in the chest. OTHER: No other significant finding. IMPRESSION: No significant interval change. TECHNICAL DOCUMENTATION: JOB ID: [id number] [employer]- All Rights Reserved
[2017-01-26 23:52] LABS: CREATINE KINASE MB 1.53 ng/mL (<4.55)
[2017-01-26 23:54] LABS: TROPONIN I < 0.012 ng/mL
[2017-01-27] MEDS ORDERED: ACETAMINOPHEN 325 MG TABLET PO PRN (04:57)
[2017-01-27] MEDS: LANSOPRAZOLE 15 MG TAB.RAP.DR PO SCH ×2 (06:39→17:43)
[2017-01-27 07:35] LABS: CREATINE KINASE MB 1.17 ng/mL (<4.55)
[2017-01-27 07:36] LABS: TROPONIN I < 0.012 ng/mL
--- NOTE | 2017-01-27 10:36 | PDOC H&P ---
History of Present Illness Admission Date/PCP: 01/27/17 00:46 BRYANNA PERSON MD Patient complains of: Chest pain and indigestions History of Present Illness: INDRA JONES JR is a 61 year old male There is a 61-year-old male with a history of the hypertension's came to the emergency department with the complaint of some uneasiness in the chest and feeling some indigestions and the patient in the ER the initial cardiac workup was negative Patient's denied any heart disease in the past Denied any smoking history pt has denied any family history of the heart disease pt has denied any shortness of the breath Past Medical History Cardiac Medical History: Reports: Hypertension Pulmonary Medical History: Denies: Chronic Obstructive Pulmonary Disease (COPD) Neurological Medical History: Denies: Seizures Psychiatric Medical History: Reports: Bipolar Disorder, Depression, Schizoaffective Disorder Past Surgical History Past Surgical History: Reports: Cholecystectomy Social History Smoking Status: Never Smoker Family History Family History: Reviewed & Not Pertinent Parental Family History Reviewed: Yes Children Family History Reviewed: Yes Sibling(s) Family History Reviewed.: Yes Medication/Allergy Allergies/Adverse Reactions: No Known Allergies Allergy (Verified 11/29/16 13:53) Review of Systems Constitutional: ABSENT: chills, fever(s), headache(s), weight gain, weight loss Eyes: ABSENT: visual disturbances Ears: ABSENT: hearing changes Cardiovascular: PRESENT: chest pain. ABSENT: dyspnea on exertion, edema, orthropnea, palpitations Respiratory: ABSENT: cough, hemoptysis Gastrointestinal: ABSENT: abdominal pain, constipation, diarrhea, hematemesis, hematochezia, nausea, vomiting Genitourinary: ABSENT: dysuria, hematuria Musculoskeletal: ABSENT: joint swelling Integumentary: ABSENT: rash, wounds Neurological: ABSENT: abnormal gait, abnormal speech, confusion, dizziness, focal weakness, syncope Psychiatric: ABSENT: anxiety, depression, homidical ideation, suicidal ideation Endocrine: ABSENT: cold intolerance, heat intolerance, menstrual abnormalities, polydipsia, polyuria Hematologic/Lymphatic: ABSENT: easy bleeding, easy bruising, lymphadenopathy Physical Exam Vital Signs: Temp Pulse Resp BP Pulse Ox 97.3 F 57 L 16 145/74 H 100 01/27/17 08:09 01/27/17 08:09 01/27/17 08:09 01/27/17 08:09 01/27/17 08:09 Intake & Output 01/26/17 01/27/17 01/28/17 06:59 06:59 06:59 Weight 103.1 kg 103.1 kg General appearance: PRESENT: no acute distress, well-developed, well-nourished Head exam: PRESENT: atraumatic, normocephalic Eye exam: PRESENT: conjunctiva pink, EOMI, PERRLA. ABSENT: scleral icterus Ear exam: PRESENT: normal external ear exam Mouth exam: PRESENT: moist, tongue midline Neck exam: PRESENT: full ROM. ABSENT: carotid bruit, JVD, lymphadenopathy, thyromegaly Respiratory exam: PRESENT: clear to auscultation jarad Cardiovascular exam: PRESENT: RRR. ABSENT: diastolic murmur, rubs, systolic murmur Pulses: PRESENT: normal dorsalis pedis pul, +2 pedal pulses bilateral Vascular exam: PRESENT: normal capillary refill GI/Abdominal exam: PRESENT: normal bowel sounds, soft. ABSENT: distended, guarding, mass, organolmegaly, rebound, tenderness Rectal exam: PRESENT: deferred Extremities exam: ABSENT: full ROM, left AKA, right AKA, left BKA, right BKA, calf tenderness, joint swelling, pedal edema, tenderness, other Musculoskeletal exam: PRESENT: ambulatory Neurological exam: PRESENT: alert, awake, oriented to person, oriented to place , oriented to time, oriented to situation, CN II-XII grossly intact. ABSENT: motor sensory deficit Psychiatric exam: PRESENT: appropriate affect, normal mood. ABSENT: homicidal ideation, suicidal ideation Skin exam: PRESENT: dry, intact, warm. ABSENT: cyanosis, rash Results Laboratory Results: 01/27/17 01/27/17 01/27/17 02:30 06:29 06:29 Creatine Kinase 159 CK-MB (CK-2) 1.17 Troponin I < 0.012 < 0.012 Impressions: Chest X-Ray 01/26/17 22:52 IMPRESSION: No significant interval change. Assessment & Plan - Diagnosis (1) Chest pain Qualifiers: Chest pain type: unspecified Qualified Code(s): R07.9 - Chest pain, unspecified Is this a current diagnosis for this admission?: Yes Plan: Patient's review the EKG and cardiac enzymes are negative consult the cardiology for further evaluations (2) Hypertension Qualifiers: Hypertension type: essential hypertension Qualified Code(s): I10 - Essential (primary) hypertension Is this a current diagnosis for this admission?: Yes Plan: Continues to current medication - Time Time Spent: 30 to 50 Minutes Medications reviewed and adjusted accordingly: Yes Anticipated discharge: Home Within: within 24 hours - Inpatient Certification Medical Necessity: Need Close Monitoring Due to Risk of Patient Decompensation Post Hospital Care: [facility] [employer] Documentation - Plan Summary Plan Summary: Admit the patient on the telemetry bed see MD orders
[2017-01-27] MEDS: ENOXAPARIN SODIUM INJ 40 MG/0.4 ML DISP.SYRIN SUBCUT SCH (10:41)
[2017-01-27] MEDS ORDERED: METOPROLOL TARTRATE 50 MG TABLET PO ONE (12:15)
[2017-01-27 12:39] LABS: CREATINE KINASE MB 1.03 ng/mL (<4.55)
[2017-01-27 12:51] LABS: TROPONIN I < 0.012 ng/mL
[2017-01-27 18:01] LABS: CREATINE KINASE MB 1.39 ng/mL (<4.55)
[2017-01-27 18:03] LABS: TROPONIN I < 0.012 ng/mL
--- NOTE | 2017-01-27 19:56 | PDOC CONSULTATION ---
Consultation Consult Date: 01/27/17 Attending physician:: BOO MONTERO Consult reason:: Chest pain History of Present Illness Admission Date/PCP: 01/27/17 00:46 BRYANNA PERSON MD Patient complains of: Chest pain History of Present Illness: INDRA JONES JR is a 61 year old male There is a 61-year-old male with a history of the hypertension's came to the emergency department with the complaint of some uneasiness in the chest and feeling some indigestions and the patient in the ER the initial cardiac workup was negative Patient's denied any heart disease in the past Denied any smoking history pt has denied any family history of the heart disease pt has denied any shortness of the breath. This history was reviewed and confirmed. Patient denied any prior history of angina, myocardial infarction, congestive heart failure. Patient denied any other significant health issues. Patient does have history of hypertension but denied any other risk factors. Patient does claim to be under some stress. Past Medical History Cardiac Medical History: Reports: Hypertension Pulmonary Medical History: Denies: Chronic Obstructive Pulmonary Disease (COPD) Neurological Medical History: Denies: Seizures Psychiatric Medical History: Reports: Bipolar Disorder, Depression, Schizoaffective Disorder Past Surgical History Past Surgical History: Reports: Cholecystectomy Social History Information Source: Patient Smoking Status: Never Smoker Cigarettes Packs Per Day: 0 Cigars Per Day: 0 Pipes Per Day: 0 Number of Years Smokin Frequency of Alcohol Use: None Hx Recreational Drug Use: No Hx Prescription Drug Abuse: No - Advance Directive Resuscitation Status: Full Code Surrogate healthcare decision maker:: Patient is and did not want to identify a surrogate decision-maker Family History Family History: Hypertension - Negative for premature coronary artery disease or sudden cardiac in the immediate family members Parental Family History Reviewed: Yes Children Family History Reviewed: Yes Sibling(s) Family History Reviewed.: Yes Medication/Allergy Home Medications: Metoprolol Tartrate [Lopressor 50 mg Tablet] 50 mg PO Q12 01/27/17 Allergies/Adverse Reactions: No Known Allergies Allergy (Verified 01/27/17 11:13) Review of Systems Review of Systems: Please see history of present illness and past medical history as wall. Constitutional: No fever or chills reported. Head : No recent chronic headaches, recent head injury. Eyes: No recent eye pain, diplopia, redness, discharge, acute visual changes. Ears: No recent chronic ear pain, acute hearing loss, ear discharge. Oral cavity: No recent ulcerations, bleeding, oral cavity discomfort. Neck: No recent acute neck pain reported. Hematologic: No recent easy bruising or bleeding or hematologic malignancy reported. Lymphatic: No recent lymphatic malignancy, chronic lymphadenopathy reported yet Cardiovascular system review: See history of present illness. Respiratory system review: No recent chronic cough, hemoptysis, blood clots in the lungs reported. Mild Shortness of breath on exertion Gastrointestinal system review: Negative for any recent acute or chronic abdominal pain, hematemesis, melena, recent change in bowel habits. Genitourinary system review: No recent acute or chronic hematuria, flank pain, UTI etc. reported. Skin system review: Negative for any recent abnormal bruising, no rash, no pruritus reported. Neurologic: No prior history of strokes, mini strokes, seizure disorder. Psychologic: No history of major psychosis or major depression reported. Musculoskeletal: Minor aches and pains reported. No acute joint swelling reported. Endocrine: No recent polyuria, polydipsia, recent heat or cold intolerance. Physical Exam Vital Signs: Temp Pulse Resp BP Pulse Ox 97.9 F 60 20 168/79 H 99 01/27/17 16:00 01/27/17 19:00 01/27/17 16:00 01/27/17 16:00 01/27/17 16:00 Intake & Output 01/26/17 01/27/17 01/28/17 06:59 06:59 06:59 Intake Total 894 Balance 894 Weight 103.1 kg 103.1 kg Exam: GENERAL: well-nourished and in no acute distress. Alert and oriented x3 HEAD: Atraumatic, normocephalic. EYES: Pupils equal round and reactive to light, extraocular movements intact, sclera anicteric, conjunctiva are normal. ENT: TMs normal, nares patent, oropharynx clear without exudates. Moist mucous membranes. No oral ulcerations or bleeding gums noted NECK: supple without lymphadenopathy. Trachea is central. No cervical or axillary lymphadenopathy noted. Carotids are 2+, JVD WNL LUNGS: Respiration seems nonlabored, no significant accessory muscle action noted. Breath sounds clear to auscultation bilaterally and equal noted. No wheezes rales or rhonchi noted. No significant dullness noted on percussion. CHEST: Palpation of the chest wall shows no significant chest wall tenderness. No other significant abnormalities noted. 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 ABDOMEN: Soft, no significant tenderness appreciated, normoactive bowel sounds. No guarding, no rebound. No rigidity noted . No masses appreciated. EXTREMITIES: Pedal pulses are 1-2+, no calf tenderness noted. No clubbing or cyanosis.trace to 1+ pedal edema noted NEUROLOGICAL: Focused neurological exam showed no significant neurologic deficit. Normal speech, no focal weakness appreciated. PSYCH: Normal mood, normal affect. Judgment and insight within normal limits. SKIN: No significant ecchymosis, rash, ulcerations or signs of pruritus noted. MUSCULOSKELETAL EXAM: No significant joint swelling noted. Results Laboratory Results: 01/27/17 01/27/17 01/27/17 02:30 06:29 06:29 Creatine Kinase 159 CK-MB (CK-2) 1.17 Troponin I < 0.012 < 0.012 01/27/17 01/27/17 01/27/17 11:19 11:19 17:10 Creatine Kinase 157 112 CK-MB (CK-2) 1.03 Troponin I < 0.012 01/27/17 17:10 Creatine Kinase CK-MB (CK-2) 1.39 Troponin I < 0.012 EKG Comments: Sinus rhythm with minor nonspecific T-wave inversion. Impressions: Chest X-Ray 01/26/17 22:52 IMPRESSION: No significant interval change. Assessment & Plan - Diagnosis (1) Chest pain Qualifiers: Chest pain type: unspecified Qualified Code(s): R07.9 - Chest pain, unspecified Is this a current diagnosis for this admission?: Yes (2) Hypertension Qualifiers: Hypertension type: essential hypertension Qualified Code(s): I10 - Essential (primary) hypertension Is this a current diagnosis for this admission?: Yes - Notes Notes: Chest pain: Patient is 61 years old and has history of hypertension patient will benefit from a nuclear stress test. This is because of some baseline EKG abnormalities. This EKG is unchanged from prior EKG from December 2016. Nuclear stress test I believe can be performed as an outpatient if patient remains stable. Previous CTA of the chest had shown no coronary calcification. Hypertension: Blood pressure reasonably well-controlled. Will continue with current therapy. Dyslipidemia: Patient had mild abnormality of LDL. Have started patient on Lipitor 10 mg p.o. daily. Anxiety depression: Patient claims to be under some stress and this could be part explanation of chest pain. - Time Time Spent: 30 to 50 Minutes - More than 50% of the time spent coordinating care , discussing management plans with involved caregivers. Management plans discussed with involved personnels. Medical decision making was of moderate to high complexity, patient's has multiple comorbidities. Medications reviewed and adjusted accordingly: Yes
[2017-01-27] MEDS ORDERED: ASPIRIN 81 MG TABLET, ENT COATED PO ONE (21:00)
[2017-01-27] MEDS: METOPROLOL TARTRATE 50 MG TABLET PO SCH (21:04)
[2017-01-27] MEDS: ATORVASTATIN CALCIUM 10 MG TABLET PO SCH (21:04)
[2017-01-28] MEDS: LANSOPRAZOLE 15 MG TAB.RAP.DR PO SCH ×2 (05:41→17:28)
--- NOTE | 2017-01-28 06:07 | EKG REPORT ---
SEVERITY:- ABNORMAL ECG - SINUS RHYTHM NONSPECIFIC T ABNORMALITIES, DIFFUSE LEADS : Confirmed by: Alisson Andrade MD 28-Jan-2017 06:07:13
[2017-01-28] MEDS: METOPROLOL TARTRATE 50 MG TABLET PO SCH ×2 (09:58→21:22)
[2017-01-28] MEDS: ENOXAPARIN SODIUM INJ 40 MG/0.4 ML DISP.SYRIN SUBCUT SCH (09:59)
[2017-01-28] MEDS ORDERED: ASPIRIN 81 MG TABLET, ENT COATED PO SCH (10:00)
[2017-01-28] MEDS ORDERED: ACETAMINOPHEN 325 MG TABLET PO PRN (14:00)
[2017-01-28] MEDS: ATORVASTATIN CALCIUM 10 MG TABLET PO SCH (21:22)
--- NOTE | 2017-01-28 23:28 | PROGRESS NOTE E ---
Progress Note NAME: INDRA JONES : 1955 AGE: 61Y DATE: 01/28/2017 ROOM: 419 SUBJECTIVE: Note that the patient has no further chest pain or discomfort. There is no arrhythmia seen on the monitor. There is no PND or orthopnea. There is no leg edema. There are no TIA or CVA symptoms. OBJECTIVE: GENERAL: On examination, the patient is *------* obese but well groomed, in no acute distress. VITAL SIGNS: He is afebrile with a temperature of 97.6 degrees Fahrenheit. His pulse is 48 beats per minute, blood pressure is 157/74, respirations are 20 per minute and O2 sats are 97% on room air. HEENT: Head is atraumatic, normocephalic. Eyes: Pupils are equal, round and regular, reactive to light and accommodation. Extraocular movements are normal. There is no conjunctival pallor. There is no scleral icterus. ENT is negative. NECK: Supple. There is no JVD. Carotids are equal. There is no bruit. There is no goiter. LUNGS: Clear to auscultation and percussion. HEART: S1 and S2 heard. There is no S3 gallop. There is no S4 gallop. There is a systolic murmur in the left sternal border and the apex. There is no rub. ABDOMEN: Soft, nontender. There is no hepatosplenomegaly. Bowel sounds are well heard. There are no tender areas or masses. EXTREMITIES: Femorals are slightly diminished and leg pulses are diminished. There are no femoral bruits. There is no pedal edema. There is no DVT or cellulitis. There is no calf tenderness. CENTRAL NERVOUS SYSTEM: The patient is conscious, awake, alert and oriented x3 with no focal deficits. PSYCHIATRIC: The patient's judgment and insight are intact. His affect is normal. LABORATORY DATA: The patient's troponin I was negative x3. RECOMMENDATIONS: Would recommend trying to decrease the patient's metoprolol because of the patient has bradycardia. Blood pressure is not well controlled, would recommend starting the patient on REX inhibitor, lisinopril. Note, since the patient has had multiple visits to the ER, will have the patient have an IV Lexiscan Cardiolite stress test tomorrow morning. This test has been discussed with the patient. Note 35 minutes spent on this patient, with more than 50% of the time spent on direct patient care. His medications have been reviewed and orders were written for stress test. Note that the patient is a FULL CODE. He says that he has no next-of-kin and, hence, unable to tell me the name of the surrogate healthcare decision maker. Note: In view of the stress test being ordered, this case required highly complex medical making decision. DICTATING PHYSICIAN: MIKAEL MANDEL M.D. [id number] PHY#: [id number] ID: [id number] JOB#: [id number] ACCT: [id number] cc: >
[2017-01-29] MEDS: LANSOPRAZOLE 15 MG TAB.RAP.DR PO SCH ×2 (06:30→17:16)
[2017-01-29] MEDS ORDERED: ASPIRIN 81 MG TABLET, ENT COATED PO SCH (10:00)
[2017-01-29] MEDS: METOPROLOL TARTRATE 50 MG TABLET PO SCH (10:32)
[2017-01-29] MEDS: ENOXAPARIN SODIUM INJ 40 MG/0.4 ML DISP.SYRIN SUBCUT SCH (10:33)
--- NOTE | 2017-01-29 11:45 | Physician Advisory Note ---
Physician Advisor ProgressNote .: [facility] medical record for this patient. Physician Advisor Statement: Documentation: 1. Please be sure to specify most likely cause of chest pain. 2. Medical necessity: need documentation of any clinical reasons pt required 2nd MN in hospital - see below. Status; Medicare pt with CP, appropriate for Obs status to start. Initial soft top installer nakita recommended outpt stress testing after d/c. After 1st MN, soft top installer expressed concern about bradycardia & HTN, made Rx recommendations, but there is no attending note yet for 01/28, and no change in management/orders indicating attending having ongoing concerns about patient. Celia recommended to be done in hospital "due to multiple ED visits" - this does not sound like clear clinical medical necessity for 2nd MN in hospital, so conversion to Inpatient is not supported by the documentation so far, despite patient spending 2nd MN in hospital. CK
[2017-01-29] MEDS ORDERED: REGADENOSON INJ 0.4 MG/5 ML DISP.SYRIN IV ONE (13:26)
--- NOTE | 2017-01-29 16:30 | PDOC DISCHARGE SUMMARY ---
General - Admit/Disc Date/PCP Admission Date/Primary Care Provider: 01/27/17 04:57 BRYANNA PERSON MD Discharge Date: 01/29/17 - Discharge Diagnosis (1) Chest pain Is this a current diagnosis for this admission?: Yes (2) Hypertension Is this a current diagnosis for this admission?: Yes - Additional Information Resuscitation Status: Full Code Home Medications: Metoprolol Tartrate [Lopressor 50 mg Tablet] 50 mg PO Q12 01/27/17 Lisinopril/Hydrochlorothiazide [Lisinopril-Hctz 20-12.5 mg Tab] 1 each PO QAM # 90 tablet 01/29/17 History of Present Illness History of Present Illness: INDRA JONES JR is a 61 year old male was admitted when he presented with chest pain in the emergency room Hospital Course Hospital Course: He was admitted for the management of chest pain, 3 sets of cardiac enzymes negative for acute myocardial infarction, he had a Cardiolite Lexiscan stress test done today, it was negative for reversibility that suggest ischemia, essentially negative test. The chest pain is probably from chest wall pain Physical Exam Vital Signs: Temp Pulse Resp BP Pulse Ox 97.4 F 54 L 19 156/91 H 98 01/29/17 11:43 01/29/17 14:00 01/29/17 11:43 01/29/17 11:43 01/29/17 11:43 Intake & Output 01/28/17 01/29/17 01/30/17 06:59 06:59 06:59 Intake Total 1348 2643 Balance 1348 2643 Weight 106.9 kg 106.3 kg General appearance: PRESENT: no acute distress, well-developed, well-nourished Head exam: PRESENT: atraumatic, normocephalic Eye exam: PRESENT: conjunctiva pink, EOMI, PERRLA. ABSENT: scleral icterus Ear exam: PRESENT: normal external ear exam Mouth exam: PRESENT: moist, tongue midline Neck exam: PRESENT: full ROM Cardiovascular exam: PRESENT: RRR, +S1, +S2 Pulses: PRESENT: normal dorsalis pedis pul, +2 pedal pulses bilateral Vascular exam: PRESENT: normal capillary refill GI/Abdominal exam: PRESENT: soft Rectal exam: PRESENT: deferred Neurological exam: PRESENT: alert, awake, oriented to person, oriented to place , oriented to time, oriented to situation, CN II-XII grossly intact Psychiatric exam: PRESENT: appropriate affect, normal mood Skin exam: PRESENT: dry, intact, warm. ABSENT: cyanosis, rash Results Laboratory Results: 01/27/17 01/27/17 01/27/17 06:29 06:29 11:19 Creatine Kinase 159 157 CK-MB (CK-2) 1.17 Troponin I < 0.012 01/27/17 01/27/17 01/27/17 11:19 17:10 17:10 Creatine Kinase 112 CK-MB (CK-2) 1.03 1.39 Troponin I < 0.012 < 0.012 Impressions: Chest X-Ray 01/26/17 22:52 IMPRESSION: No significant interval change.
[2017-01-29 17:18] VITALS: BP 145/84
--- NOTE | 2017-01-29 18:22 | DRAGON STRESS TEST REPORT ---
Intravenous Lexiscan Cardiolite stress test using single photon emmision computerized tomography. Date of procedure: 01/29/2017. Ordering Provider: Dr. Alisson Andrade. Patient's status: In Patient Indication: Chest pain. Coronary risk factors: Age, and hypertension Resting EKG: Sinus Rhythm. Nonspecific ST-T changes lateral leads Stress EKG: No changes of ischemia. The patient had no chest pain or discomfort, and there were no arrhythmias seen. Reason for termination: Protocol. Conclusions: Normal EKG and hemodynamic response to IV Lexiscan. Nuclear data: At rest the patient was given 14.40 millicuries of technetium 99m sestamibi injected intravenously. As per protocol rest non gated SPECT images were obtained. Subsequently the patient was given intravenous Lexiscan at a dose of 0.4 mg in 5 mL intravenously, followed by flush with normal saline. Subsequently the stress dose of 46.0 millicuries of technetium 99m sestamibi was injected intravenously. As per protocol stress gated images were obtained. Nuclear interpretation: Review of images showed that all segments of the myocardium had normal perfusion at rest, and normal perfusion post stress with IV Lexiscan. All segments of the myocardium had normal motion, contraction, and thickening by gated study. T. I D. ratio was normal at 1.01. Computer read rest, and stress left ventricular ejection fraction were 59 %, and 54 %, respectively. Visually both the stress and rest ejection fractions were normal, and greater than 55%. Conclusion: 1. There is no scintigraphic evidence of Lexiscan induced myocardial ischemia. 2. There is no scintigraphic evidence of myocardial infarction/scar. Recommendations: Aggressive risk factor modification, and treating the underlying co- morbidities. MTDD
--- NOTE | 2017-01-29 23:53 | PROGRESS NOTE E ---
Progress Note NAME: INDRA JONES : 1955 AGE: 61Y DATE: 01/29/2017 ROOM: 419 SUBJECTIVE: The patient has no further chest pain or discomfort. There are no palpitations. There is no PND or orthopnea. There is no leg edema. There is no arrhythmia seen on the monitor. OBJECTIVE: On examination, the patient is moderately obese. He is afebrile with a temperature of 97.4 degrees Fahrenheit. Pulse is 49 beats per minute. Blood pressure is 156/91. Respirations are 90 per minute. O2 sats are 98% on room air. Head is normocephalic, atraumatic. Eyes: Pupils are equal, round, reactive to light and accommodation. Extraocular movements are normal. There is no conjunctival pallor. There is no scleral icterus. ENT is negative. Neck is supple. There is no JVD. Carotids are equal. There is no bruit. There is no goiter. Lungs are clear to auscultation and percussion. S1/S2 is heard. There is no S3 gallop. There is no S4 gallop. There is a systolic murmur in the left sternal border and the apex. There is no rub. Abdomen is soft and nontender. There is no hepatosplenomegaly. Bowel sounds are well heard. There are no tender areas or masses. Extremities: Femorals are slightly diminished; the pulses are diminished. There are no femoral bruits. There is no pedal edema. There is no DVT or cellulitis. There is no calf tenderness. There is no cyanosis or clubbing. 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 Psychiatric. The patient's judgement and insight are intact. His affect is normal. Note that the patient underwent a Cardiolite stress test today. The patient had no chest pain, and there were no EKG changes. There were no arrhythmias. There was no reversible ischemia or myocardial infarction *------*. This is being discussed with the patient. ASSESSMENT: 1. CHEST PAIN, RESOLVED. NEGATIVE CARDIAC ENZYMES AND NEGATIVE LEXISCAN CARDIOLITE STRESS TEST. 2. HYPERTENSION. 3. BIPOLAR DISORDER. 4. DEPRESSION. RECOMMENDATIONS: This has been discussed with the attending physician with regards to the results of the stress test and also the patient. Note, medical decision making is of moderate complexity. Medications have been reviewed. Would still recommend that the patient's metoprolol be reduced to 25 mg p.o. q. 4 hours. His medications have been reviewed. Note, 30 minutes spent on this patient, including discussion of the stress test. I will sign off the case. This has been discussed with the attending physician on the case. DICTATING PHYSICIAN: MIKAEL MANDEL M.D. [id number] [facility]#: [id number] ID: [id number] JOB#: [id number] ACCT: [id number] cc: >
== END 2017-01-29 17:30 | disposition home or self-care (01) ==
LOC: ER 22:48 → EH 01-27 00:46 → UNDOADMOB 01-27 00:46 → EH 01-27 04:57 → 4W 01-27 09:12
PROVIDERS: ADMIT Family Medicine; ATTEND Internal Medicine
DX: R07.9 Chest pain, unspecified (principal); I10 Essential (primary) hypertension; E78.5 Hyperlipidemia, unspecified; F41.9 Anxiety disorder, unspecified; F32.9 Major depressive disorder, single episode, unspecified; Z73.3 Stress, not elsewhere classified; R00.1 Bradycardia, unspecified; E66.8 Other obesity; Z90.49 Acquired absence of other specified parts of digestive tract; Z82.49 Family history of ischemic heart disease and other diseases of the circulatory system; Z79.899 Other long term (current) drug therapy; Z68.33 Body mass index [BMI] 33.0-33.9, adult
CPT/HCPCS: 93005; 99285; 36415 ×2; 82553 ×2; 82550 ×2; 85025; 80053; 84484 ×2; 93017; 71010; 78452; 93010; G0378 ×4; A9500; A9270 ×12; J2785; J1650 ×3; Q9969

== ENCOUNTER 2017-02-17 18:12 | Emergency (ER) | payer MEDICARE, MEDICAID ==
--- NOTE | 2017-02-17 19:26 | ER Document Report ---
ED Medical Screen (RME) - General Chief Complaint: Shortness Of Breath Stated Complaint: SHORTNESS OF BREATH Time Seen by Provider: 02/17/17 19:22 Notes: 61-year-old male patient comes emergency room complaining of anxiety and shortness of breath. He has a long mental health history. By his history he does not take any medications and does not have any psychiatric problems. Says he just has blood pressure issues is going to see Dr. Benson again in March for medical treatment. He states the only reason he is here tonight is because he is short of breath. He was somewhat difficult for the nurse initially, so he was placed in the waiting room to watch TV and a football game. I have greeted and performed a rapid initial assessment of this patient. A comprehensive ED assessment and evaluation of the patient, analysis of test results and completion of the medical decision making process will be conducted by additional ED providers. TRAVEL OUTSIDE OF THE [place] IN LAST 30 DAYS: No - Related Data Allergies/Adverse Reactions: No Known Allergies Allergy (Verified 02/17/17 18:12) Past Medical History - Social History Chew tobacco use (# tins/day): No Frequency of alcohol use: None Drug Abuse: None - Past Medical History Cardiac Medical History: Reports: Hx Hypertension Pulmonary Medical History: Denies: Hx COPD Neurological Medical History: Denies: Hx Seizures Renal/ Medical History: Reports: Hx Kidney Stones. Denies: Hx Peritoneal Dialysis Psychiatric Medical History: Reports: Hx Bipolar Disorder, Hx Depression, Hx Schizoaffective Disorder, Hx Schizophrenia Past Surgical History: Reports: Hx Cholecystectomy, Hx Kidney (Renal Surgery) - Immunizations Hx Diphtheria, Pertussis, Tetanus Vaccination: No History of Influenza Vaccine for 12/2016 - 05/2017 Season: No Physical Exam - Vital signs Vitals: Temp Pulse Resp BP Pulse Ox 98.1 F 77 20 175/93 H 97 02/17/17 18:20 02/17/17 18:20 02/17/17 18:20 02/17/17 18:20 02/17/17 18:20 Course - Vital Signs Vital signs: Temp Pulse Resp BP Pulse Ox 98.1 F 77 20 175/93 H 97 02/17/17 18:20 02/17/17 18:20 02/17/17 18:20 02/17/17 18:20 02/17/17 18:20
--- NOTE | 2017-02-17 20:26 | ER Document Report ---
ED General - General Chief Complaint: Shortness Of Breath Stated Complaint: SHORTNESS OF BREATH Time Seen by Provider: 02/17/17 19:22 Notes: Patient is a 61-year-old male comes emergency department for chief complaint of feeling anxious and shortness of breath. He states he told this to triage, however he denies any current symptoms, he states he did not get any shortness of breath or chest pain, he states he simply got stressed out while watching the football game earlier, states he was around other people who were making negative remarks and he got upset. He states he just wants to go home now. Past medical history of hypertension, bipolar, schizoaffective disorder, he is medicated for hypertension. He denies cough, fever, dyspnea on exertion, or any other symptoms other than the ones reported above. TRAVEL OUTSIDE OF THE [place] IN LAST 30 DAYS: No - Related Data Allergies/Adverse Reactions: No Known Allergies Allergy (Verified 02/17/17 18:12) Past Medical History - General Information source: Patient - Social History Smoking Status: Never Smoker Chew tobacco use (# tins/day): No Frequency of alcohol use: None Drug Abuse: None Lives with: Family Family History: Hypertension - Negative for premature coronary artery disease or sudden cardiac in the immediate family members Patient has suicidal ideation: No Patient has homicidal ideation: No - Past Medical History Cardiac Medical History: Reports: Hx Hypertension Pulmonary Medical History: Denies: Hx COPD Neurological Medical History: Denies: Hx Seizures Renal/ Medical History: Reports: Hx Kidney Stones. Denies: Hx Peritoneal Dialysis Psychiatric Medical History: Reports: Hx Bipolar Disorder, Hx Depression, Hx Schizoaffective Disorder, Hx Schizophrenia Past Surgical History: Reports: Hx Cholecystectomy, Hx Kidney (Renal Surgery) - Immunizations Hx Diphtheria, Pertussis, Tetanus Vaccination: No Review of Systems - Review of Systems Constitutional: No symptoms reported EENT: No symptoms reported Cardiovascular: See HPI Respiratory: See HPI Gastrointestinal: No symptoms reported Genitourinary: No symptoms reported Male Genitourinary: No symptoms reported Musculoskeletal: No symptoms reported Skin: No symptoms reported Hematologic/Lymphatic: No symptoms reported Neurological/Psychological: See HPI Physical Exam - Vital signs Vitals: Temp Pulse Resp BP Pulse Ox 98.1 F 77 20 175/93 H 97 02/17/17 18:20 02/17/17 18:20 02/17/17 18:20 02/17/17 18:20 02/17/17 18:20 Interpretation: Normal - General General appearance: Appears well, Alert In distress: None - HEENT Head: Normocephalic, Atraumatic Eyes: Normal Pupils: PERRL - Respiratory Respiratory status: No respiratory distress Chest status: Nontender Breath sounds: Normal Chest palpation: Normal - Cardiovascular Rhythm: Regular Heart sounds: Normal auscultation Murmur: No - Abdominal Inspection: Normal Distension: No distension Bowel sounds: Normal Tenderness: Nontender Organomegaly: No organomegaly - Back Back: Normal, Nontender - Extremities General upper extremity: Normal inspection, Nontender, Normal color, Normal ROM , Normal temperature General lower extremity: Normal inspection, Nontender, Normal color, Normal ROM , Normal temperature, Normal weight bearing. No: Ariel's sign - Neurological Neuro grossly intact: Yes Cognition: Normal Orientation: AAOx4 Angie Coma Scale Eye Opening: Spontaneous [place] Coma Scale Verbal: Oriented Angie Coma Scale Motor: Obeys Commands [place] Coma Scale Total: 15 Speech: Normal Motor strength normal: LUE, RUE, LLE, RLE Sensory: Normal - Psychological Associated symptoms: Normal affect, Normal mood, Tangential speech - Patient has tangential speech but he is redirectable, he makes good eye contact, is smiling and laughing - Skin Skin Temperature: Warm Skin Moisture: Dry Skin Color: Normal Course - Re-evaluation Re-evalutation: Patient denying any symptoms other than feeling anxiety during the sports game. He denies any current symptoms. He is somewhat hypertensive but this was rechecked and downtrending. Vital signs unremarkable otherwise. EKG shows sinus rhythm with no T-wave inversions or ST segment changes in consecutive leads. Chest x-ray unremarkable. Patient is asking to go home. I have very low suspicion of ACS, pulmonary embolism, aortic dissection, or other life- threatening etiology based on his examination, presentation, and workup. He denies SI or HI. Discussed tests, discussed return precautions, discussed follow-up, patient states satisfaction and agreement. - Vital Signs Vital signs: Temp Pulse Resp BP Pulse Ox 98.1 F 72 18 154/89 H 98 02/17/17 18:20 02/17/17 21:29 02/17/17 21:29 02/17/17 21:29 02/17/17 21:29 Discharge - Discharge Clinical Impression: Anxiety, Shortness of breath Condition: Stable Disposition: HOME, SELF-CARE Additional Instructions: Your EKG, chest x-ray, and examination do not show any concerning abnormalities. Please follow-up with your provider in the next few days to have your blood pressure rechecked and for additional management. Return to emergency department for any concerning or worsening symptoms including chest pain, difficulty breathing, or if something is not right. Forms: Elevated Blood Pressure Referrals: BRYANNA PERSON MD [Primary Care Provider] - Follow up as needed
--- NOTE | 2017-02-17 20:57 | RADIOLOGY REPORT (SQ) ---
EXAM DESCRIPTION: CHEST PA/LAT COMPLETED DATE/TIME: 02/17/2017 8:39 pm REASON FOR STUDY: SOB COMPARISON: 11/29/2016. 2015. TECHNIQUE: Frontal and lateral radiographic views of the chest acquired. NUMBER OF VIEWS: Two view. LIMITATIONS: None. FINDINGS: LUNGS AND PLEURA: Chronic diffuse interstitial prominence, reticular opacities scattered t hroughout the lung [place]. No superimposed acute infiltrate. MEDIASTINUM AND HILAR STRUCTURES: No masses or contour abnormalities. HEART AND VASCULAR STRUCTURES: Heart normal size. No evidence for failure. BONES: No acute findings. HARDWARE: None in the chest. OTHER: No other significant finding. IMPRESSION: 1. Chronic interstitial changes. No acute superimposed abnormality appreciated. Stable chest. TECHNICAL DOCUMENTATION: JOB ID: [id number] [employer] [place]- All Rights Reserved
[2017-02-17 21:31] VITALS: BP 154/89
--- NOTE | 2017-02-17 22:59 | EKG REPORT ---
SEVERITY:- NORMAL ECG - SINUS RHYTHM : Confirmed by: Vikash Javier 17-Feb-2017 22:58:14
== END 2017-02-17 21:29 | disposition home or self-care (01) ==
LOC: ER 18:12
DX: F41.9 Anxiety disorder, unspecified (principal); R06.02 Shortness of breath; I10 Essential (primary) hypertension; Z79.899 Other long term (current) drug therapy
CPT/HCPCS: 71020; 93005; 93010; 99285

== ENCOUNTER 2017-02-22 00:18 | Emergency (ER) | payer MEDICARE, MEDICAID ==
[2017-02-22] MEDS ORDERED: ASPIRIN 81 MG TABLET, CHEWABLE PO ONE (00:22)
[2017-02-22] MEDS ORDERED: ASPIRIN 81 MG TABLET, CHEWABLE ONE (00:24)
--- NOTE | 2017-02-22 00:34 | ER Document Report ---
ED General - General Stated Complaint: CHEST PAIN Time Seen by Provider: 02/22/17 00:24 Notes: Patient is a 61-year-old male that comes by EMS for 2 chief complaints. First complaint is chest pain that started in the center of his chest, feels sharp, nonradiating, denies shortness of breath, denies nausea or vomiting, denies cough, denies fever or chills. He also states that this evening he started getting a pain in his testicles and mild discomfort with urination. He denies trauma. EMS gave 324 mg of aspirin. Past medical history of hypertension, schizophrenia, kidney stones. No heart history reported, he actually had a stress test recently which was negative. TRAVEL OUTSIDE OF THE [place] IN LAST 30 DAYS: No - Related Data Allergies/Adverse Reactions: No Known Allergies Allergy (Verified 02/17/17 18:12) Past Medical History - General Information source: Patient - Social History Smoking Status: Never Smoker Frequency of alcohol use: None Drug Abuse: None Lives with: Family Family History: Hypertension - Negative for premature coronary artery disease or sudden cardiac in the immediate family members - Past Medical History Cardiac Medical History: Reports: Hx Hypertension Pulmonary Medical History: Denies: Hx COPD Neurological Medical History: Denies: Hx Seizures Renal/ Medical History: Reports: Hx Kidney Stones. Denies: Hx Peritoneal Dialysis Psychiatric Medical History: Reports: Hx Bipolar Disorder, Hx Depression, Hx Schizoaffective Disorder, Hx Schizophrenia Past Surgical History: Reports: Hx Cholecystectomy, Hx Kidney (Renal Surgery) - Immunizations Hx Diphtheria, Pertussis, Tetanus Vaccination: No Review of Systems - Review of Systems Constitutional: No symptoms reported EENT: No symptoms reported Cardiovascular: See HPI Respiratory: No symptoms reported Gastrointestinal: No symptoms reported Genitourinary: See HPI Male Genitourinary: No symptoms reported Musculoskeletal: No symptoms reported Skin: No symptoms reported Hematologic/Lymphatic: No symptoms reported Neurological/Psychological: No symptoms reported Physical Exam - Vital signs Vitals: Resp Pulse Ox 25 H 98 02/22/17 00:28 02/22/17 00:28 Interpretation: Normal - General General appearance: Appears well, Alert In distress: None - HEENT Head: Normocephalic, Atraumatic Eyes: Normal Pupils: PERRL - Respiratory Respiratory status: No respiratory distress Chest status: Nontender Breath sounds: Normal Chest palpation: Normal - Cardiovascular Rhythm: Regular Heart sounds: Normal auscultation Murmur: No - Abdominal Inspection: Normal Distension: No distension Bowel sounds: Normal Tenderness: Nontender Organomegaly: No organomegaly - Genitourinary Inspection: Normal Tenderness: No: Nontender - Patient reports tenderness with palpation over the general scrotum although this is nonspecific and he does not appear to have a pain response Cremasteric reflex: Normal Scrotum: Normal - Back Back: Normal, Nontender. 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 No: Aggressive, Agitated, Angry, Anxious, Restlessness, Uncooperative - Skin Skin Temperature: Warm Skin Moisture: Dry Skin Color: Normal Course - Re-evaluation Re-evalutation: EKG shows sinus rhythm, no T-wave inversions or ST segment changes in consecutive leads, no significant change from prior. Chest x-ray unremarkable. In review of records patient had a negative stress test 1 month ago. Atypical description of chest pain. Based on his age and his hypertension history his heart score is 2. Troponin cycled and unremarkable. Patient was hypertensive initially, this resolved with time. CBC generally unremarkable with nonspecific mild leukocytosis. Chemistry shows very mildly elevated creatinine. Genital exam is unremarkable, patient states it hurts whenever the general scrotum is evaluated although I do not see any pain response, no swelling, normal cremaster reflex. Ultrasound with no acute abnormalities. Low suspicion of intermittent torsion based on reported symptoms. Discussed with patient. Discussed workup, initially patient was stating that he wanted to leave and see his provider Dr. Person in the morning, however on repeat evaluation he states he wants to stay, he states he wants to watch TV and eat. Explained that I did not have any admission criteria. Patient became difficult after this, every question I asked he asked me the same question, then he became angry and stated he wanted to be left alone, he states he wants a woman to come in and he wants her to "be an attractive one". Discussed with Dr. Shelton. He recommends that because the workup is unremarkable, because patient is oriented and being difficult, that regardless patient be discharged with instructions to follow-up with his primary care provider today. He also recommends patient be given an oral dose of Haldol because of his psychiatric history. Patient discharged with return precautions. - Vital Signs Vital signs: Temp Pulse Resp BP Pulse Ox 98.2 F 13 152/94 H 99 02/22/17 04:34 02/22/17 04:34 02/22/17 04:34 02/22/17 04:34 - Laboratory Result Diagrams: 02/22/17 00:35 02/22/17 00:35 Laboratory results interpreted by me: 02/22/17 02/22/17 02/22/17 00:35 00:35 02:12 WBC 12.1 H Absolute Neutrophils 9.0 H Creatinine 1.39 H Est GFR (Non-Af Amer) 52 L Creatine Kinase 375 H Urine Blood MODERATE H Urine Urobilinogen 2.0 H Discharge - Discharge Clinical Impression: Chest pain of uncertain etiology, Scrotal pain Condition: Stable Disposition: HOME, SELF-CARE Additional Instructions: Your evaluation for your chest and your genitals do not show any acute abnormalities. Follow-up with your provider today for additional evaluation and management. Return to emergency department for any concerning or worsening symptoms including difficulty breathing, returned or worsening pain, or any other concerning symptoms. Referrals: BRYANNA PERSON MD [Primary Care Provider] - Follow up as needed
[2017-02-22 00:54] LABS: ABSOLUTE EOSINOPHILS # (AUTO) 0.1 10^3/uL (0.0-0.6); ABSOLUTE LYMPHOCYTES (AUTO) 1.8 10^3/uL (0.5-4.7); ABSOLUTE MONOCYTES (AUTO) 1.1 10^3/uL (0.1-1.4); BASOPHILS % (AUTO) 0.2 % (0-2); EOSINOPHILS % (AUTO) 1.2 % (0-6); HEMATOCRIT 40.8 % (37.9-51.0); HEMOGLOBIN 13.9 g/dL (13.5-17.0); HGB HCT DIFFERENCE 0.9; MEAN CORPUSCULAR HEMOGLOBIN 30.6 pg (27.0-33.4); MEAN CORPUSCULAR VOLUME 90 fl (80-97); MONOCYTES % (AUTO) 9.4 % (3-13); RED BLOOD COUNT 4.53 10^6/uL (4.35-5.55); RED CELL DISTRIBUTION WIDTH 13.9 % (11.5-14.0); SEGMENTED NEUTROPHILS % (AUTO) 74.2 % (42-78); WHITE BLOOD COUNT 12.1 10^3/uL (4.0-10.5)
[2017-02-22 01:21] LABS: CREATINE KINASE MB 2.53 ng/mL (<4.55)
--- NOTE | 2017-02-22 01:21 | RADIOLOGY REPORT (SQ) ---
EXAM DESCRIPTION: CHEST SINGLE VIEW CLINICAL HISTORY: 61 years, Male, CP COMPARISON: 02/17/2017. 04/09/2016, report only. LIMITATIONS: None. FINDINGS: Mild chronic interstitial markings, moderate lung volume, normal cardiac silhouette, and intact bony thorax. IMPRESSION: No acute cardiopulmonary findings. Mild chronic interstitial lung disease pattern. 2011 [employer]- All Rights Reserved
[2017-02-22 01:22] LABS: ALANINE AMINOTRANSFERASE 44 U/L (21-72); ALBUMIN 4.4 g/dL (3.5-5.0); ALKALINE PHOSPHATASE 94 U/L (38-126); ANION GAP 13 (5-19); ASPARTATE AMINO TRANSFERASE 28 U/L (17-59); BILIRUBIN,DIRECT 0.3 mg/dL (0.0-0.4); BILIRUBIN,TOTAL 0.8 mg/dL (0.2-1.3); BLOOD UREA NITROGEN 13 mg/dL (7-20); CALCIUM 9.7 mg/dL (8.4-10.2); CARBON DIOXIDE 25 mmol/L (22-30); CHLORIDE 106 mmol/L (98-107); CREATINE KINASE 375 U/L (55-170); CREATININE RESULT 1.39 mg/dL (0.52-1.25); GLUCOSE 98 mg/dL (75-110); POTASSIUM 3.7 mmol/L (3.6-5.0); SODIUM 143.5 mmol/L (137-145); TOTAL PROTEIN 7.1 g/dL (6.3-8.2)
[2017-02-22 01:23] LABS: TROPONIN I < 0.012 ng/mL
--- NOTE | 2017-02-22 02:22 | RADIOLOGY REPORT (SQ) ---
EXAM DESCRIPTION: U/S SCROTUM W/DOPPLER CLINICAL HISTORY: 61 years, Male, scrotal pain COMPARISON: None. LIMITATIONS: None. FINDINGS: 0.2 cm likely benign echogenic punctate calcification/"scrotal derrick" at the superior aspect of the right testis. 3.7 cm right testis, 4.2 cm left testis, epididymi, and scrotal structures appear otherwise of normal size, shape, echotexture, and vascularity. IMPRESSION: No acute findings. 2011 [employer]- All Rights Reserved
[2017-02-22 02:40] LABS: APPEARANCE,URINE CLEAR; BILIRUBIN,URINE NEGATIVE (NEGATIVE); GLUCOSE, URINE NEGATIVE (NEGATIVE); KETONES,URINE NEGATIVE (NEGATIVE); LEUKOCYTE ESTERASE,URINE NEGATIVE (NEGATIVE); NITRITE,URINE NEGATIVE (NEGATIVE); PROTEIN,URINE NEGATIVE (NEGATIVE); URINE SPECIFIC GRAVITY 1.018
[2017-02-22] MEDS ORDERED: HALOPERIDOL 5 MG TABLET PO ONE (04:33)
[2017-02-22 05:43] VITALS: BP 129/77
--- NOTE | 2017-02-22 07:52 | EKG REPORT ---
SEVERITY:- ABNORMAL ECG - SINUS RHYTHM PROBABLE LEFT ATRIAL ABNORMALITY NONSPECIFIC ST-T CHANGES , DIFFUSE : Confirmed by: Arian Roper MD 22-Feb-2017 07:52:09
== END 2017-02-22 05:51 | disposition home or self-care (01) ==
LOC: ER 00:18
DX: R07.9 Chest pain, unspecified (principal); N50.82 Scrotal pain; I10 Essential (primary) hypertension; R30.0 Dysuria; D72.829 Elevated white blood cell count, unspecified; R74.8 Abnormal levels of other serum enzymes; Z87.442 Personal history of urinary calculi
CPT/HCPCS: 93005; 99285; 36415; 82553; 82550; 85025; 80053; 81001; 84484; 71010; 76870; 93976; 93010; A9270 ×2

== ENCOUNTER 2017-06-25 09:43 | Emergency (ER) | payer MEDICARE, MEDICAID ==
[2017-06-25 10:10] LABS: ABSOLUTE BASOPHILS # (AUTO) 0.1 10^3/uL (0.0-0.2); ABSOLUTE EOSINOPHILS # (AUTO) 0.1 10^3/uL (0.0-0.6); ABSOLUTE LYMPHOCYTES (AUTO) 1.5 10^3/uL (0.5-4.7); ABSOLUTE MONOCYTES (AUTO) 0.8 10^3/uL (0.1-1.4); ABSOLUTE NEUT (AUTO) 4.8 10^3/uL (1.7-8.2); BASOPHILS % (AUTO) 0.9 % (0-2); EOSINOPHILS % (AUTO) 1.5 % (0-6); LYMPHOCYTES % (AUTO) 20.7 % (13-45); MEAN CORPUSCULAR HEMOGLOBIN 30.4 pg (27.0-33.4); MEAN CORPUSCULAR HGB CONC 34.9 g/dL (32.0-36.0); MEAN CORPUSCULAR VOLUME 87 fl (80-97); MONOCYTES % (AUTO) 10.9 % (3-13); PLATELET COUNT 244 10^3/uL (150-450); RED BLOOD COUNT 4.94 10^6/uL (4.35-5.55); RED CELL DISTRIBUTION WIDTH 13.6 % (11.5-14.0); TOTAL CELLS COUNTED % (AUTO) 100 %; WHITE BLOOD COUNT 7.2 10^3/uL (4.0-10.5)
[2017-06-25 10:29] LABS: ALANINE AMINOTRANSFERASE 22 U/L (21-72); ALBUMIN 4.4 g/dL (3.5-5.0); ALKALINE PHOSPHATASE 112 U/L (38-126); ANION GAP 13 (5-19); ASPARTATE AMINO TRANSFERASE 32 U/L (17-59); BILIRUBIN,DIRECT 0.3 mg/dL (0.0-0.4); BILIRUBIN,TOTAL 0.9 mg/dL (0.2-1.3); BLOOD UREA NITROGEN 10 mg/dL (7-20); CALCIUM 9.3 mg/dL (8.4-10.2); CARBON DIOXIDE 24 mmol/L (22-30); CHLORIDE 107 mmol/L (98-107); GLUCOSE 104 mg/dL (75-110); POTASSIUM 3.5 mmol/L (3.6-5.0); SODIUM 144.3 mmol/L (137-145); TOTAL PROTEIN 7.8 g/dL (6.3-8.2)
[2017-06-25] MEDS ORDERED: METOPROLOL TARTRATE 50 MG TABLET PO ONE (10:31)
[2017-06-25] MEDS ORDERED: CLONIDINE HCL 0.1 MG TABLET PO ONE (10:31)
--- NOTE | 2017-06-25 10:37 | ER Document Report ---
ED GI/ - General Chief Complaint: Testicular Swelling Stated Complaint: TESTICULAR PAIN Time Seen by Provider: 06/25/17 09:55 Mode of Arrival: Medic Information source: Patient TRAVEL OUTSIDE OF THE [place] IN LAST 30 DAYS: No - HPI Patient complains to provider of: Testicular pain Notes: 06/25/17 10:35 Patient is here via EMS with complaints of bilateral testicular pain. Patient states that he said the pain for last few days. He denies any swelling. He denies any dysuria or hematuria. No penile discharge. States that he is not currently sexually active. He actually states that he would like to talk to a sex therapist, as he feels lonely and has not had sex in several years. He denies any abdominal pain. No fevers. No nausea, vomiting, diarrhea. No chest pain or shortness of breath. Patient has a history of hypertension, but tells me he has been out of his medications for about a week. I called the [facility] at [facility] where he tells me he fills his prescriptions, they state that he has not filled a blood pressure prescription since November. He tells me that he typically sees Dr. Person, but that he is currently in the process of attempting to see a new primary care doctor. He denies any headache, blurred vision, numbness, tingling, weakness. He denies any other complaints at this time. - Related Data Allergies/Adverse Reactions: No Known Allergies Allergy (Verified 02/17/17 18:12) Past Medical History - Social History Smoking Status: Never Smoker Chew tobacco use (# tins/day): No Frequency of alcohol use: None Drug Abuse: None Family History: Hypertension - Negative for premature coronary artery disease or sudden cardiac in the immediate family members Patient has suicidal ideation: No Patient has homicidal ideation: No - Past Medical History Cardiac Medical History: Reports: Hx Hypertension Pulmonary Medical History: Denies: Hx COPD Neurological Medical History: Denies: Hx Seizures Renal/ Medical History: Reports: Hx Kidney Stones. Denies: Hx Peritoneal Dialysis Psychiatric Medical History: Reports: Hx Bipolar Disorder, Hx Depression, Hx Schizoaffective Disorder, Hx Schizophrenia Past Surgical History: Reports: Hx Cholecystectomy, Hx Kidney (Renal Surgery) - Immunizations Hx Diphtheria, Pertussis, Tetanus Vaccination: No Review of Systems - Review of Systems -: Yes All other systems reviewed and negative Physical Exam - Vital signs Vitals: Resp BP Pulse Ox 25 H 168/91 H 100 06/25/17 09:51 06/25/17 09:51 06/25/17 09:51 - Notes Notes: GENERAL: alert, cooperative, nontoxic, no distress. HEAD: normocephalic, atraumatic EYES: conjunctiva pink without discharge, no external redness or swelling. EARS: no external swelling, no external redness NOSE: atraumatic, no external swelling MOUTH/THROAT: mucous membranes moist and pink, posterior pharynx without erythema, swelling, exudate. No trismus or drooling. NECK: soft, supple, full range of motion, no meningismus. CHEST: no distress, lungs clear and equal throughout. No wheezing, rales, rhonchi. CARDIAC: regular rate and rhythm, no murmur, normal capillary refill, normal pulses. No peripheral edema noted. ABDOMEN: Soft, nontender. No rebound tenderness or guarding. No mass. BACK: full range of motion, no CVA tenderness. EXTREMITIES: full range of motion of all extremities. No redness, no swelling. NEURO: alert and oriented x 3, no focal deficits, full range of motion of all extremities. PYSCH: appropriate mood, affect. Patient is cooperative. SKIN: pink, warm, dry, no rash. : Circumcised penis, no penile discharge. Testicle exam shows minimal bilateral tenderness with no mass. No swelling. Testicular lie is normal. Cremasteric reflexes normal bilaterally. Scrotal skin is normal with no redness , crepitus. Course - Re-evaluation Re-evalutation: 06/25/17 12:55 Patient is nontoxic appearing with stable vitals. The patient is here with complaints of testicular pain. Is completely normal testicular exam with no mass or swelling. Minimal tenderness. No signs of infection. Lab work and urinalysis are unremarkable. Ultrasound of the scrotum shows a small left varicocele with no other acute findings. Patient is stable for discharge home. I have given the patient a dose of blood pressure medication here in the emergency department, his blood pressure has improved. I will refill his metoprolol. He will be given referrals to primary care. He is given a list of community mental health referrals as requested per the patient for possible sexual therapy. This point the patient is stable for discharge home. He will be given a prescription for Naprosyn as well. The patient is noted to have elevated blood pressure during today's emergency department visit. The patient was informed of this finding. The patient was instructed that this may be related to pre-hypertension and requires further evaluation with a primary care provider. The patient has no hypertensive symptoms at this time. The patient's emergency department workup and current diagnosis were explained to the patient and or family. Follow-up instructions were provided. Medications if prescribed were discussed. Instructions for when to return to the emergency department including specific worrisome symptoms were discussed with the patient and/or family. - Vital Signs Vital signs: Temp Pulse Resp BP Pulse Ox 16 155/91 H 100 06/25/17 12:01 06/25/17 12:01 06/25/17 12:01 - Laboratory Result Diagrams: 06/25/17 09:46 06/25/17 09:46 Laboratory results interpreted by me: 06/25/17 06/25/17 09:46 10:23 Potassium 3.5 L Urine Blood SMALL H - Diagnostic Test Radiology reviewed: Image reviewed, Reports reviewed - Ultrasound shows left small varicocele with no acute findings. Discharge - Discharge Clinical Impression: Testicular pain Hypertension Qualifiers: Hypertension type: unspecified Qualified Code(s): I10 - Essential (primary) hypertension Condition: Stable Disposition: HOME, SELF-CARE Instructions: Testicular Pain ([facility]), High Blood Pressure ([facility]), Family Physicians / Practices Additional Instructions: take your blood pressure medication every day. Follow-up with your new family doctor at the next available appointment. Take pain medication as prescribed. You may also take Tylenol as needed for pain. Follow-up sooner for worsening pain, high fever, persistent vomiting, severe swelling, abdominal pain, or for any further concerns. He has been given a list of [facility] outpatient mental health referrals. Use this to establish a therapist. Your blood pressure was elevated during today's visit. Have this rechecked with your doctor. Prescriptions: Metoprolol Tartrate 50 mg PO DAILY #30 tablet Naproxen [Naprosyn] 500 mg PO BID #20 tablet Referrals: BRYANNA PERSON MD [Primary Care Provider] - Follow up as needed [facility] [Provider Group] - Follow up as needed
[2017-06-25 11:10] LABS: APPEARANCE,URINE CLEAR; BILIRUBIN,URINE NEGATIVE (NEGATIVE); COLOR,URINE YELLOW; GLUCOSE, URINE NEGATIVE (NEGATIVE); KETONES,URINE NEGATIVE (NEGATIVE); LEUKOCYTE ESTERASE,URINE NEGATIVE (NEGATIVE); NITRITE,URINE NEGATIVE (NEGATIVE); PROTEIN,URINE NEGATIVE (NEGATIVE); URINE SPECIFIC GRAVITY 1.012; UROBILINOGEN,URINE NEGATIVE mg/dL (<2.0)
--- NOTE | 2017-06-25 11:51 | RADIOLOGY REPORT (SQ) ---
EXAM DESCRIPTION: U/S SCROTUM W/DOPPLER COMPLETED DATE/TIME: 06/25/2017 11:39 am REASON FOR STUDY: testicular pain COMPARISON: Scrotal ultrasound 02/22/2017 CT abdomen pelvis 07/21/2016 TECHNIQUE: Static and realtime baxter scale imaging of the scrotum and testes. Selected color Doppler and spectral images recorded to document blood flow. LIMITATIONS: None. FINDINGS: RIGHT: TESTICLE: Normal size, 3.8 x 2.9 x 2.3 cm. Normal echotexture. Normal blood flow. No mass. EPIDIDYMIS: Normal. HYDROCELE OR VARICOCELE: No. HERNIA OR EXTRA-TESTICULAR MASS: No. OTHER: No other significant finding. LEFT: TESTICLE: Normal size, 3.5 x 3 x 1.8 cm in size. Normal echotexture. Normal blood flow. No mass. EPIDIDYMIS: Normal. HYDROCELE OR VARICOCELE: Small left varicocele HERNIA OR EXTRA-TESTICULAR MASS: No. OTHER: No other significant finding. IMPRESSION: No ultrasound evidence of testicular torsion. Small left varicocele TECHNICAL DOCUMENTATION: JOB ID: [id number]- All Rights Reserved Reading location - IP/workstation name: [email or web address]
[2017-06-25 12:55] VITALS: BP 155/91
== END 2017-06-25 13:17 | disposition home or self-care (01) ==
LOC: ER 09:43
DX: N50.811 Right testicular pain (principal); N50.812 Left testicular pain; I10 Essential (primary) hypertension; Z87.442 Personal history of urinary calculi; Z90.49 Acquired absence of other specified parts of digestive tract
CPT/HCPCS: 99284; 36415; 85025; 80053; 81001; 76870; 93976; A9270 ×2

== ENCOUNTER 2017-06-28 00:39 | Emergency (ER) | payer MEDICARE, MEDICAID ==
[2017-06-28] MEDS ORDERED: ACETAMINOPHEN 325 MG TABLET PO ONE (03:10)
[2017-06-28] MEDS ORDERED: LISINOPRIL 10 MG TABLET PO ONE (03:10)
[2017-06-28] MEDS ORDERED: HYDROCHLOROTHIAZIDE 12.5 MG CAPSULE PO ONE (03:10)
--- NOTE | 2017-06-28 03:22 | ER Document Report ---
ED General - General Chief Complaint: Headache Stated Complaint: HEADACHE Time Seen by Provider: 06/28/17 02:58 Notes: Patient is a 62-year-old male comes emergency department for chief complaint of elevated blood pressure and a headache. He states that he did fill his blood pressure medications but he has not started taking them yet, he is on lisinopril 20 mg, HCTZ 12.5 mg, and metoprolol tartrate 50 mg twice daily. He states that his headache is almost gone now and he feels much better now. He denies focal numbness or weakness, visual changes, nausea vomiting, chest pain. TRAVEL OUTSIDE OF THE [place] IN LAST 30 DAYS: No - Related Data Allergies/Adverse Reactions: No Known Allergies Allergy (Verified 02/17/17 18:12) Past Medical History - General Information source: Patient - Social History Smoking Status: Never Smoker Frequency of alcohol use: None Drug Abuse: None Lives with: Alone Family History: Hypertension - Negative for premature coronary artery disease or sudden cardiac in the immediate family members - Past Medical History Cardiac Medical History: Reports: Hx Hypertension Pulmonary Medical History: Denies: Hx COPD Neurological Medical History: Denies: Hx Seizures Renal/ Medical History: Reports: Hx Kidney Stones. Denies: Hx Peritoneal Dialysis Psychiatric Medical History: Reports: Hx Bipolar Disorder, Hx Depression, Hx Schizoaffective Disorder, Hx Schizophrenia Past Surgical History: Reports: Hx Cholecystectomy, Hx Kidney (Renal Surgery) - Immunizations Hx Diphtheria, Pertussis, Tetanus Vaccination: No Review of Systems - Review of Systems Constitutional: See HPI EENT: No symptoms reported Cardiovascular: No symptoms reported Respiratory: No symptoms reported Gastrointestinal: No symptoms reported Genitourinary: No symptoms reported Male Genitourinary: No symptoms reported Musculoskeletal: No symptoms reported Skin: No symptoms reported Hematologic/Lymphatic: No symptoms reported Neurological/Psychological: See HPI Physical Exam - Vital signs Vitals: Temp Pulse Resp BP Pulse Ox 98 F 70 18 162/80 H 99 06/28/17 01:13 06/28/17 01:13 06/28/17 01:13 06/28/17 01:13 06/28/17 01:13 Interpretation: Normal - General General appearance: Appears well In distress: None - HEENT Head: Normocephalic, Atraumatic Eyes: Normal Pupils: PERRL - Respiratory Respiratory status: No respiratory distress Chest status: Nontender Breath sounds: Normal Chest palpation: Normal - Cardiovascular Rhythm: Regular Heart sounds: Normal auscultation Murmur: No - Abdominal Inspection: Normal Distension: No distension Bowel sounds: Normal Tenderness: Nontender Organomegaly: No organomegaly - Back Back: Normal, Nontender - Extremities General upper extremity: Normal inspection, Nontender, Normal color, Normal ROM , Normal temperature General lower extremity: Normal inspection, Nontender, Normal color, Normal ROM , Normal temperature, Normal weight bearing. No: Ariel's sign - Neurological Neuro grossly intact: Yes Cognition: Normal Orientation: AAOx4 Angie Coma Scale Eye Opening: Spontaneous [place] Coma Scale Verbal: Oriented [place] Coma Scale Motor: Obeys Commands Angie Coma Scale Total: 15 Speech: Normal Motor strength normal: LUE, RUE, LLE, RLE Sensory: Normal - Psychological Associated symptoms: Normal affect, Normal mood - Friendly, makes good eye contact, appears to be in a normal mood - Skin Skin Temperature: Warm Skin Moisture: Dry Skin Color: Normal Course - Re-evaluation Re-evalutation: Patient states his headache is almost completely gone, he states he "just wants some Tylenol", states that he will start taking his daily prescribed blood pressure medications, he does not want any testing and he wants to leave now. Patient given initial dose of his blood pressure medication, Tylenol, his physical examination including neurological examination is normal, his blood pressure is only borderline high, based on his good appearance and lack of complaints I have low suspicion of intracranial hemorrhage or other acute etiology. Discussed primary care follow-up, return precautions, patient states understanding and agreement. - Vital Signs Vital signs: Temp Pulse Resp BP Pulse Ox 97.7 F 58 L 18 148/82 H 100 06/28/17 03:52 06/28/17 03:52 06/28/17 03:52 06/28/17 03:52 06/28/17 03:52 Discharge - Discharge Clinical Impression: Headache Qualifiers: Headache type: unspecified Headache chronicity pattern: acute headache Intractability: not intractable Qualified Code(s): R51 - Headache Hypertension Qualifiers: Hypertension type: essential hypertension Qualified Code(s): I10 - Essential ( primary) hypertension Condition: Stable Disposition: HOME, SELF-CARE Additional Instructions: Take your prescribed medications for hypertension daily. Follow-up with primary care for additional evaluation and management. Return to the emergency department for any concerning or worsening symptoms including returned or severe headache, vomiting, chest pain, or any other concerning or worsening symptoms.
[2017-06-28 03:52] VITALS: BP 148/82
== END 2017-06-28 03:52 | disposition home or self-care (01) ==
LOC: ER 00:39
DX: R51 Headache (principal); I10 Essential (primary) hypertension; Z87.442 Personal history of urinary calculi; Z90.49 Acquired absence of other specified parts of digestive tract
CPT/HCPCS: 99284; A9270 ×3

== ENCOUNTER 2017-09-27 05:47 | Emergency (ER) | payer MEDICARE, MEDICAID ==
--- NOTE | 2017-09-27 06:30 | ER Document Report ---
ED Extremity Problem, Lower - General Chief Complaint: Ankle Pain Stated Complaint: ANKLE PAIN Time Seen by Provider: 09/27/17 06:13 Notes: 62-year-old male to emergency department for evaluation of right foot swelling. Patient states that he notices from swelling a couple of days ago. Has been walking a lot. The right foot is swollen, tender on the top of the foot with small draining lesion on the top of the foot. Denies any fever, chills, sweats. Denies any pain in the back of the leg. Denies any calf swelling. No fever. No shortness of breath. No chest pain. No other symptoms at this time. States that his girlfriend recently so he has been walking around quite a bit to clear his mind. Denies any abnormal thoughts at this time. No suicidal ideation. No severe depression reported. He is actually tolerating the loss of his girlfriend quite well. TRAVEL OUTSIDE OF THE [place] IN LAST 30 DAYS: No - HPI Location: Foot Occurred: Yesterday - Related Data Allergies/Adverse Reactions: No Known Allergies Allergy (Verified 02/17/17 18:12) Past Medical History - General Information source: Patient - Social History Smoking Status: Never Smoker Cigarette use (# per day): No Chew tobacco use (# tins/day): No Frequency of alcohol use: None Drug Abuse: None Lives with: Alone Family History: Hypertension - Negative for premature coronary artery disease or sudden cardiac in the immediate family members Patient has suicidal ideation: No Patient has homicidal ideation: No - Past Medical History Cardiac Medical History: Reports: Hx Hypertension Pulmonary Medical History: Denies: Hx COPD Neurological Medical History: Denies: Hx Seizures Renal/ Medical History: Reports: Hx Kidney Stones. Denies: Hx Peritoneal Dialysis Psychiatric Medical History: Reports: Hx Bipolar Disorder, Hx Depression, Hx Schizoaffective Disorder, Hx Schizophrenia Past Surgical History: Reports: Hx Cholecystectomy, Hx Kidney (Renal Surgery) - Immunizations Hx Diphtheria, Pertussis, Tetanus Vaccination: No Review of Systems - Review of Systems Constitutional: denies: Fever, Malaise, Weakness EENT: denies: Throat pain, Difficulty swallowing, Throat swelling Cardiovascular: denies: Chest pain, Palpitations, Heart racing, Orthopnea, Dyspnea, Syncope, Dizziness, Lightheaded, Edema Respiratory: denies: Cough, Hurts to breathe, Short of breath, Wheezing Gastrointestinal: denies: Abdominal pain, Diarrhea, Vomiting Musculoskeletal: See HPI, Other - Right foot swelling. denies: Back pain, Joint pain Skin: Lesions, Rash, Other - Lesion on the top of his right foot. denies: Dryness, Lumps Physical Exam - Vital signs Interpretation: Normal - General General appearance: Appears well, Alert - Respiratory Respiratory status: No respiratory distress Chest status: Nontender Breath sounds: Normal Chest palpation: Normal - Cardiovascular Rhythm: Regular Heart sounds: Normal auscultation Murmur: No - Extremities General upper extremity: Normal inspection, Nontender, Normal color, Normal ROM , Normal temperature. No: Edema General lower extremity: Edema, Normal color, Normal ROM, Normal temperature, Normal weight bearing, Other - The right lower extremity demonstrates moderate amount of swelling to the right foot. There is a small excoriation noted to the top of the right foot with small amount of clear drainage. Foot is warm to the touch. There is no obvious deformity.. No: Ariel's sign - Neurological Neuro grossly intact: Yes Cognition: Normal Orientation: AAOx4 Angie Coma Scale Eye Opening: Spontaneous [place] Coma Scale Verbal: Oriented Angie Coma Scale Motor: Obeys Commands Angie Coma Scale Total: 15 Speech: Normal Motor strength normal: LUE, RUE, LLE, RLE Sensory: Normal - Psychological Associated symptoms: Normal affect, Normal mood Course - Re-evaluation Re-evalutation: 09/27/17 07:00 At this time appears to have maybe early cellulitis of the right foot. Has unilateral swelling of the right foot. No posterior calf tenderness. No Homans sign. Small amount of clear drainage coming out of this excoriation on the top of the right foot. Will get some blood work. Possible treatment at this time for cellulitis. Will x-ray the foot to make sure there is no occult fracture or subcutaneous emphysema or foreign body. 09/27/17 07:44 No evidence of foreign bodies. No significant elevated white blood cell count. CRP unremarkable. Not manifesting significant signs of congestive heart failure. At this time I am going to treat conservatively with some antibiotics. Will place some dressings over the foot. Advised patient to keep foot elevated. Keep a close eye on the foot look for any worsening swelling, redness or signs of infection. Follow-up with his regular doctor or return for any worsening symptoms or concerns. - Laboratory Result Diagrams: 09/27/17 06:41 09/27/17 06:41 Laboratory results interpreted by me: 09/27/17 06:41 Potassium 3.5 L Chloride 111 H Carbon Dioxide 19 L Discharge - Discharge Clinical Impression: Cellulitis of right foot Condition: Good Disposition: HOME, SELF-CARE Instructions: Cellulitis (OM) Prescriptions: Amoxicillin 1 tab PO TID 7 Days #21 tab Sulfamethoxazole/Trimethoprim [Bactrim Ds Tablet] 1 each PO BID 7 Days #14 tablet Referrals: BRYANNA PERSON MD [ACTIVE STAFF] - Follow up in 3-5 days
[2017-09-27 06:56] LABS: ABSOLUTE BASOPHILS # (AUTO) 0.1 10^3/uL (0.0-0.2); ABSOLUTE EOSINOPHILS # (AUTO) 0.3 10^3/uL (0.0-0.6); ABSOLUTE LYMPHOCYTES (AUTO) 1.7 10^3/uL (0.5-4.7); ABSOLUTE MONOCYTES (AUTO) 0.8 10^3/uL (0.1-1.4); ABSOLUTE NEUT (AUTO) 5.6 10^3/uL (1.7-8.2); BASOPHILS % (AUTO) 0.6 % (0-2); EOSINOPHILS % (AUTO) 3.7 % (0-6); HEMATOCRIT 40.1 % (37.9-51.0); HEMOGLOBIN 13.9 g/dL (13.5-17.0); LYMPHOCYTES % (AUTO) 20.3 % (13-45); MEAN CORPUSCULAR HEMOGLOBIN 31.3 pg (27.0-33.4); MEAN CORPUSCULAR HGB CONC 34.6 g/dL (32.0-36.0); MEAN CORPUSCULAR VOLUME 90 fl (80-97); MONOCYTES % (AUTO) 9.7 % (3-13); PLATELET COUNT 183 10^3/uL (150-450); RED BLOOD COUNT 4.43 10^6/uL (4.35-5.55); RED CELL DISTRIBUTION WIDTH 13.8 % (11.5-14.0); SEGMENTED NEUTROPHILS % (AUTO) 65.7 % (42-78); TOTAL CELLS COUNTED % (AUTO) 100 %; WHITE BLOOD COUNT 8.4 10^3/uL (4.0-10.5)
--- NOTE | 2017-09-27 07:18 | RADIOLOGY REPORT (SQ) ---
EXAM DESCRIPTION: XR FOOT 1-2 VIEWS COMPLETED DATE/TME: 09/27/2017 06:30 CLINICAL HISTORY: 62 years, Male, foot pain and swelling COMPARISON: None. FINDINGS: 3 views of the right foot. No acute fracture or dislocation. Osteopenia. Pes planus deformity. Plantar calcaneal spur. The tarsals and metatarsals appear appropriately aligned. Degenerative spurring of the intertarsal joints. Edema in the dorsal subcutaneous soft tissues. IMPRESSION: No acute fracture or dislocation. 2010 [employer]- All Rights Reserved
[2017-09-27 07:21] LABS: ALANINE AMINOTRANSFERASE 43 U/L (21-72); ALBUMIN 3.6 g/dL (3.5-5.0); ALKALINE PHOSPHATASE 94 U/L (38-126); ANION GAP 13 (5-19); ASPARTATE AMINO TRANSFERASE 32 U/L (17-59); BILIRUBIN,DIRECT 0.3 mg/dL (0.0-0.4); BILIRUBIN,TOTAL 0.6 mg/dL (0.2-1.3); BLOOD UREA NITROGEN 9 mg/dL (7-20); CALCIUM 8.6 mg/dL (8.4-10.2); CARBON DIOXIDE 19 mmol/L (22-30); CHLORIDE 111 mmol/L (98-107); GLUCOSE 94 mg/dL (75-110); POTASSIUM 3.5 mmol/L (3.6-5.0); TOTAL PROTEIN 6.3 g/dL (6.3-8.2)
[2017-09-27 07:23] LABS: C-REACTIVE PROTEIN < 5.0 mg/L (<10.0)
[2017-09-27] MEDS ORDERED: SULFAMETHOXAZOLE/TRIMETHOPRIM 800-160 MG TABLET PO ONE (07:49)
[2017-09-27] MEDS ORDERED: AMOXICILLIN TRIHYDRATE 500 MG CAPSULE PO ONE (07:49)
[2017-09-27] MEDS ORDERED: IBUPROFEN 800 MG TABLET PO ONE (07:49)
--- NOTE | 2017-09-27 09:17 | EKG REPORT ---
SEVERITY:- BORDERLINE ECG - SINUS RHYTHM BORDERLINE T ABNORMALITIES, INFERIOR LEADS : Confirmed by: Alisson Andrade MD 27-Sep-2017 09:16:43
== END 2017-09-27 10:21 | disposition home or self-care (01) ==
LOC: ER 05:47
DX: L03.115 Cellulitis of right lower limb (principal); I10 Essential (primary) hypertension; Z87.891 Personal history of nicotine dependence
CPT/HCPCS: 93005; 99284; 36415; 85025; 86140; 80053; 83880; 73620; 93010; A9270 ×3

== ENCOUNTER 2018-07-21 16:15 | Emergency (ER) | payer MEDICAID, MEDICARE ==
--- NOTE | 2018-07-21 19:06 | ER Document Report ---
ED Medical Screen (RME) - General Chief Complaint: Testicular Pain Stated Complaint: TESTICULAR PAIN Time Seen by Provider: 07/21/18 18:49 Mode of Arrival: Ambulatory Information source: Patient TRAVEL OUTSIDE OF THE [place] IN LAST 30 DAYS: No - HPI Patient complains to provider of: TETSICULAR PAIN Notes: 07/21/18 19:05 Patient here with complaints of testicular pain for months. No dysuria. No penile discharge. He was seen earlier for similar symptoms and had an ultrasound that was unremarkable at that time. He was seen his primary care office today and was sent to the ER due to blood in his urine and concern for possible kidney stones. Patient does have a history of kidney stones. No fever. Exam No distress, nontoxic-appearing. Lungs clear and equal throughout. Heart sounds normal. No significant testicular tenderness or mass on exam with no swelling. Scrotal skin normal with no redness crepitus or rash. Plan CBC, CMP, urine, CT abdomen pelvis stone protocol. An initial examination was made on the patient as part of the triage process, and it was determined a more comprehensive evaluation was necessary. Initial labs were ordered and patient was transferred to another provider in the ED who assumed care and finished evaluation and plan. - Related Data Allergies/Adverse Reactions: No Known Allergies Allergy (Verified 02/17/17 18:12) Past Medical History - Social History Chew tobacco use (# tins/day): No Frequency of alcohol use: None Drug Abuse: None - Past Medical History Cardiac Medical History: Reports: Hx Hypertension Pulmonary Medical History: Denies: Hx COPD Neurological Medical History: Denies: Hx Seizures Renal/ Medical History: Reports: Hx Kidney Stones. Denies: Hx Peritoneal Dialysis Psychiatric Medical History: Reports: Hx Bipolar Disorder, Hx Depression, Hx Schizoaffective Disorder, Hx Schizophrenia Past Surgical History: Reports: Hx Cholecystectomy, Hx Kidney (Renal Surgery) - Immunizations Hx Diphtheria, Pertussis, Tetanus Vaccination: No History of Influenza Vaccine for 12/2016 - 05/2017 Season: No
[2018-07-21 19:58] LABS: ABSOLUTE EOSINOPHILS # (AUTO) 0.1 10^3/uL (0.0-0.6); ABSOLUTE LYMPHOCYTES (AUTO) 1.5 10^3/uL (0.5-4.7); ABSOLUTE MONOCYTES (AUTO) 0.7 10^3/uL (0.1-1.4); ABSOLUTE NEUT (AUTO) 3.6 10^3/uL (1.7-8.2); BASOPHILS % (AUTO) 0.7 % (0-2); EOSINOPHILS % (AUTO) 1.9 % (0-6); HEMATOCRIT 45.6 % (37.9-51.0); HEMOGLOBIN 15.1 g/dL (13.5-17.0); LYMPHOCYTES % (AUTO) 25.4 % (13-45); MEAN CORPUSCULAR HGB CONC 33.2 g/dL (32.0-36.0); MEAN CORPUSCULAR VOLUME 91 fl (80-97); MONOCYTES % (AUTO) 11.4 % (3-13); PLATELET COUNT 221 10^3/uL (150-450); RED BLOOD COUNT 5.04 10^6/uL (4.35-5.55); RED CELL DISTRIBUTION WIDTH 13.3 % (11.5-14.0); SEGMENTED NEUTROPHILS % (AUTO) 60.6 % (42-78); TOTAL CELLS COUNTED % (AUTO) 100 %; WHITE BLOOD COUNT 5.9 10^3/uL (4.0-10.5)
[2018-07-21 20:18] LABS: APPEARANCE,URINE CLEAR; BILIRUBIN,URINE NEGATIVE (NEGATIVE); COLOR,URINE YELLOW; GLUCOSE, URINE NEGATIVE (NEGATIVE); KETONES,URINE TRACE mg/dL (NEGATIVE); LEUKOCYTE ESTERASE,URINE NEGATIVE (NEGATIVE); NITRITE,URINE NEGATIVE (NEGATIVE); PROTEIN,URINE NEGATIVE (NEGATIVE); URINE SPECIFIC GRAVITY 1.026; UROBILINOGEN,URINE NEGATIVE mg/dL (<2.0)
[2018-07-21 20:22] LABS: ALANINE AMINOTRANSFERASE 45 U/L (21-72); ALBUMIN 4.5 g/dL (3.5-5.0); ALKALINE PHOSPHATASE 109 U/L (38-126); ANION GAP 10 (5-19); ASPARTATE AMINO TRANSFERASE 54 U/L (17-59); BILIRUBIN,DIRECT 0.3 mg/dL (0.0-0.4); BILIRUBIN,TOTAL 0.6 mg/dL (0.2-1.3); BLOOD UREA NITROGEN 14 mg/dL (7-20); CALCIUM 9.8 mg/dL (8.4-10.2); CARBON DIOXIDE 25 mmol/L (22-30); CHLORIDE 105 mmol/L (98-107); GLUCOSE 88 mg/dL (75-110); POTASSIUM 4.1 mmol/L (3.6-5.0); SODIUM 140.4 mmol/L (137-145)
--- NOTE | 2018-07-21 20:41 | RADIOLOGY REPORT (SQ) ---
CT ABDOMEN PELVIS WITHOUT IV CONTRAST HISTORY: Hematuria. COMPARISON: 10/10/2015 TECHNIQUE: CT scan of the abdomen and pelvis was performed without IV contrast. This exam was performed according to our departmental dose-optimization program, which includes automated exposure control, adjustment of the mA and/or kV according to patient size and/or use of iterative reconstruction technique. FINDINGS: Diffuse reticulonodular opacities are seen at the lung bases, unchanged. No pleural or pericardial effusion. There has been a prior cholecystectomy. The liver, spleen, pancreas, and adrenal glands are normal. There are nonobstructing stones in both kidneys with the largest measuring 7 mm in the left kidney. The pelvic organs are also normal. There is a moderate amount of stool in the rectum. There are scattered colonic diverticula without surrounding inflammatory changes. The appendix is normal. No small bowel obstruction. No intraperitoneal free fluid or free air is seen. There are mild degenerative changes of the spine. The aorta is normal caliber. No body wall hernia. IMPRESSION: 1. Bilateral nonobstructing renal stones with the largest measuring 7 mm in the left kidney. 2. No obstructive uropathy. 3. Diffuse reticulonodular opacities, suggestive of chronic interstitial lung disease.
--- NOTE | 2018-07-21 22:13 | RADIOLOGY REPORT (SQ) ---
US SCROTUM HISTORY: Scrotal pain. COMPARISON: 06/25/2017 TECHNIQUE: Roy-scale, color Doppler, and spectral Doppler ultrasound images of the scrotum were obtained. FINDINGS: RIGHT: Normal size and echogenicity of the testis, measuring 4.6 x 2.8 x 1.6 cm. Positive color Doppler flow is present. No focal intratesticular mass is seen. The epididymis also has normal size and echogenicity. LEFT: Normal size and echogenicity of the testis, measuring 4.2 x 3.3 x 1.8 cm. Positive color Doppler flow is present. No focal intratesticular mass is seen. The epididymis also has normal size and echogenicity. OTHER: No hydroceles. No varicoceles. No scrotal hernias. IMPRESSION: No evidence of testicular torsion or inflammation.
--- NOTE | 2018-07-21 23:11 | ER Document Report ---
ED General - General Chief Complaint: Testicular Pain Stated Complaint: TESTICULAR PAIN Time Seen by Provider: 07/21/18 18:49 Mode of Arrival: Ambulatory Notes: Patient is a 63-year-old male with past medical history of hypertension, here with complaints of testicular pain for months. No dysuria. No penile discharge . Regards the pain as being a throbbing, constant, continuous pain to both testicles. Nothing seems to improve or worsen his pain. He was seen his primary care office today and was sent to the ER due to blood in his urine and concern for possible kidney stones. Patient does have a history of kidney stones. No fever. Has not had any nausea or vomiting. Nothing is new or different about his symptoms that prompted a visit to the emergency department today other than the encouragement of his primary care physician. TRAVEL OUTSIDE OF THE [place] IN LAST 30 DAYS: No - Related Data Allergies/Adverse Reactions: No Known Allergies Allergy (Verified 02/17/17 18:12) Past Medical History - General Information source: Patient - Social History Smoking Status: Never Smoker Chew tobacco use (# tins/day): No Frequency of alcohol use: None Drug Abuse: None Lives with: Alone Family History: Hypertension - Negative for premature coronary artery disease or sudden cardiac in the immediate family members Patient has suicidal ideation: No Patient has homicidal ideation: No - Past Medical History Cardiac Medical History: Reports: Hx Hypertension Pulmonary Medical History: Denies: Hx COPD Neurological Medical History: Denies: Hx Seizures Renal/ Medical History: Reports: Hx Kidney Stones. Denies: Hx Peritoneal Dialysis Psychiatric Medical History: Reports: Hx Bipolar Disorder, Hx Depression, Hx Sc hizoaffective Disorder, Hx Schizophrenia Past Surgical History: Reports: Hx Cholecystectomy, Hx Kidney (Renal Surgery) - Immunizations Hx Diphtheria, Pertussis, Tetanus Vaccination: No Review of Systems - Review of Systems Notes: Constitutional: Negative for fever. HENT: Negative for sore throat. Eyes: Negative for visual changes. Cardiovascular: Negative for chest pain. Respiratory: Negative for shortness of breath. Gastrointestinal: Negative for abdominal pain, vomiting or diarrhea. Genitourinary: Positive for bilateral testicular pain Musculoskeletal: Negative for back pain. Skin: Negative for rash. Neurological: Negative for headaches, weakness or numbness. 10 point ROS negative except as marked above and in HPI. Physical Exam - Vital signs Vitals: Temp Pulse Resp BP Pulse Ox 97.8 F 64 20 128/66 H 97 07/21/18 21:07 07/21/18 21:07 07/21/18 21:07 07/21/18 21:07 07/21/18 21:07 Interpretation: Normal Notes: PHYSICAL EXAMINATION: GENERAL: Well-appearing, well-nourished and in no acute distress. HEAD: Atraumatic, normocephalic. EYES: Pupils equal round and reactive to light, extraocular movements intact, sclera anicteric, conjunctiva are normal. ENT: nares patent, oropharynx clear without exudates. Moist mucous membranes. NECK: Normal range of motion, supple without lymphadenopathy LUNGS: Breath sounds clear to auscultation bilaterally and equal. No wheezes rales or rhonchi. HEART: Regular rate and rhythm without murmurs ABDOMEN: Soft, nontender, normoactive bowel sounds. No guarding, no rebound. No masses appreciated. : No testicular tenderness or epididymal tenderness on palpation. Positive cremasteric reflex bilaterally. No abnormal testicular lie. EXTREMITIES: Normal range of motion, no pitting or edema. No cyanosis. NEUROLOGICAL: No focal neurological deficits. Moves all extremities spontaneously and on command. PSYCH: Normal mood, normal affect. SKIN: Warm, Dry, normal turgor, no rashes or lesions noted. Course - Re-evaluation Re-evalutation: 07/21/18 23:12 Patient presents with 6 months of intermittent bilateral testicular pain. Testicular exam is unremarkable with positive cremasteric reflex bilaterally, no epididymal or direct testicular tenderness. No penile lesions or scrotal lesio ns. Patient has no abdominal tenderness, no flank tenderness. CT scan of the abdomen pelvis obtained in triage does demonstrate left-sided nephrolithiasis without evidence of urolithiasis. This could be causing some of the patient's reported hematuria. This could also contribute to intermittent testicular pain if he is dropping kidney stones. Remainder his labs, urinalysis is overall unremarkable. I have advised the patient needs to follow-up with urology given the chronic duration of his symptoms. At this time will discharge with return precautions and follow-up recommendations. Verbal discharge instructions given a the bedside and opportunity for questions given. Medication warnings reviewed. Patient is in agreement with this plan and has verbalized understanding of return precautions and the need for primary care follow-up in the next 24-72 hours. - Vital Signs Vital signs: Temp Pulse Resp BP Pulse Ox 97.8 F 64 20 128/66 H 97 07/21/18 21:07 07/21/18 21:07 07/21/18 21:07 07/21/18 21:07 07/21/18 21:07 - Laboratory Result Diagrams: 07/21/18 19:34 07/21/18 19:34 Laboratory results interpreted by me: 07/21/18 19:34 Urine Ketones TRACE H Urine Blood LARGE H Discharge - Discharge Clinical Impression: Nephrolithiasis, Chronic pain in testicle Hematuria Qualifiers: Hematuria type: unspecified type Qualified Code(s): R31.9 - Hematuria, unspecified Condition: Good Disposition: HOME, SELF-CARE Additional Instructions: You do have kidney stones up in both of your kidneys likely causing the blood in your urine. This could also be causing the pain in your testicles. Your testicular ultrasound and labs are otherwise normal. Please follow-up with urology at your earliest ability. Return if you develop fever, persistent vomiting, worsening of your pain, pass out, or have any other symptoms that are worrisome to you.
[2018-07-22] VITALS: BP 118/47
== END 2018-07-22 00:01 | disposition home or self-care (01) ==
LOC: ER 16:15
DX: G89.29 Other chronic pain (principal); N50.812 Left testicular pain; N50.811 Right testicular pain; R31.9 Hematuria, unspecified; I10 Essential (primary) hypertension; Z87.442 Personal history of urinary calculi; Z90.49 Acquired absence of other specified parts of digestive tract
CPT/HCPCS: 36415; 74176; 76870; 80053; 81001; 85025; 93976; 99284

== ENCOUNTER 2018-08-17 18:04 | Emergency (ER) | payer MEDICARE ==
[2018-08-17] MEDS ORDERED: NORMAL SALINE 1000 ML 1,000 ML IV ONE (18:56)
[2018-08-17 19:15] LABS: ABSOLUTE BASOPHILS # (AUTO) 0.1 10^3/uL (0.0-0.2); ABSOLUTE EOSINOPHILS # (AUTO) 0.2 10^3/uL (0.0-0.6); ABSOLUTE LYMPHOCYTES (AUTO) 1.6 10^3/uL (0.5-4.7); ABSOLUTE MONOCYTES (AUTO) 0.8 10^3/uL (0.1-1.4); ABSOLUTE NEUT (AUTO) 4.2 10^3/uL (1.7-8.2); BASOPHILS % (AUTO) 1.1 % (0-2); EOSINOPHILS % (AUTO) 2.8 % (0-6); HEMATOCRIT 40.8 % (37.9-51.0); HEMOGLOBIN 13.8 g/dL (13.5-17.0); MEAN CORPUSCULAR HEMOGLOBIN 30.2 pg (27.0-33.4); MEAN CORPUSCULAR HGB CONC 33.9 g/dL (32.0-36.0); MEAN CORPUSCULAR VOLUME 89 fl (80-97); MONOCYTES % (AUTO) 11.1 % (3-13); PLATELET COUNT 208 10^3/uL (150-450); RED BLOOD COUNT 4.58 10^6/uL (4.35-5.55); RED CELL DISTRIBUTION WIDTH 13.6 % (11.5-14.0); TOTAL CELLS COUNTED % (AUTO) 100 %; WHITE BLOOD COUNT 6.9 10^3/uL (4.0-10.5)
[2018-08-17 19:35] LABS: ALANINE AMINOTRANSFERASE 48 U/L (21-72); ALBUMIN 3.8 g/dL (3.5-5.0); ALKALINE PHOSPHATASE 88 U/L (38-126); ANION GAP 7 (5-19); ASPARTATE AMINO TRANSFERASE 54 U/L (17-59); BILIRUBIN,DIRECT 0.2 mg/dL (0.0-0.4); BILIRUBIN,TOTAL 0.5 mg/dL (0.2-1.3); BLOOD UREA NITROGEN 14 mg/dL (7-20); CALCIUM 9.2 mg/dL (8.4-10.2); CARBON DIOXIDE 25 mmol/L (22-30); CHLORIDE 104 mmol/L (98-107); GLUCOSE 88 mg/dL (75-110); POTASSIUM 3.7 mmol/L (3.6-5.0); SODIUM 136.2 mmol/L (137-145); TOTAL PROTEIN 6.7 g/dL (6.3-8.2)
[2018-08-17 20:31] LABS: APPEARANCE,URINE CLEAR; BILIRUBIN,URINE NEGATIVE (NEGATIVE); COLOR,URINE YELLOW; GLUCOSE, URINE NEGATIVE (NEGATIVE); KETONES,URINE NEGATIVE (NEGATIVE); LEUKOCYTE ESTERASE,URINE NEGATIVE (NEGATIVE); NITRITE,URINE NEGATIVE (NEGATIVE); PROTEIN,URINE NEGATIVE (NEGATIVE); URINE SPECIFIC GRAVITY 1.012; UROBILINOGEN,URINE NEGATIVE mg/dL (<2.0)
[2018-08-17 20:42] LABS: URINE AMPHETAMINES SCREEN NEGATIVE; URINE BARBITURATES SCREEN NEGATIVE; URINE BENZODIAZEPINES SCREEN NEGATIVE; URINE COCAINE SCREEN NEGATIVE; URINE MARIJUANA (THC) SCREEN NEGATIVE; URINE METHADONE SCREEN NEGATIVE; URINE PHENCYCLIDINE SCREEN NEGATIVE
--- NOTE | 2018-08-17 21:36 | ER Document Report ---
ED General - General Chief Complaint: Headache Stated Complaint: HEADACHE Time Seen by Provider: 08/17/18 18:55 TRAVEL OUTSIDE OF THE [place] IN LAST 30 DAYS: No - HPI Notes: Patient presents emergency department for evaluation. He tells me that he is just tired. He states he has not really slept in 24 hours. He did have a headache earlier today. He states he was working outside. He states he is feel ing moderately improved. He does get headaches on occasion. This is not the worst headache of his life. He denies any fevers or chills. He states he just feels fatigued and tired. - Related Data Allergies/Adverse Reactions: No Known Allergies Allergy (Verified 02/17/17 18:12) Past Medical History - General Information source: Patient - Social History Smoking Status: Never Smoker Family History: Hypertension - Negative for premature coronary artery disease or sudden cardiac in the immediate family members - Past Medical History Cardiac Medical History: Reports: Hx Hypertension Pulmonary Medical History: Denies: Hx COPD Neurological Medical History: Denies: Hx Seizures Renal/ Medical History: Reports: Hx Kidney Stones. Denies: Hx Peritoneal Dialysis Psychiatric Medical History: Reports: Hx Bipolar Disorder, Hx Depression, Hx Schizoaffective Disorder, Hx Schizophrenia Past Surgical History: Reports: Hx Cholecystectomy, Hx Kidney (Renal Surgery) - Immunizations Hx Diphtheria, Pertussis, Tetanus Vaccination: No Review of Systems - Review of Systems Constitutional: See HPI EENT: No symptoms reported Cardiovascular: No symptoms reported Respiratory: No symptoms reported Gastrointestinal: No symptoms reported Genitourinary: No symptoms reported Musculoskeletal: No symptoms reported Neurological/Psychological: No symptoms reported Physical Exam - Vital signs Vitals: Temp Pulse BP Pulse Ox 98.1 F 71 158/83 H 97 08/17/18 18:09 08/17/18 18:09 08/17/18 18:09 08/17/18 18:09 - Notes Notes: Vital signs reviewed, please refer to chart. Head is normocephalic, atraumatic. Pupils equal round, reactive to light. Neck is supple without meningismus. Heart is regular rate and rhythm. Lungs are clear to auscultation bilaterally. Abdomen is soft, nontender, normoactive bowel sounds throughout. Extremities without cyanosis, clubbing. Posterior calves are nontender. Peripheral pulses are equal. Skin is warm and dry. Patient is awake, alert, oriented x3. Cranial nerves II - XII are grossly intact without focal neurological deficits. Strength is plus 5 out of 5 bilateral lower extremities. Sensation is intact. Reflexes symmetrical. Intact [id number], rapid alternating movements, [id number]. Course - Re-evaluation Re-evalutation: 08/17/18 21:36 Patient presents emergency department for evaluation. He complained of a headache, fatigue. He has no nuchal rigidity. His laboratory investigations were obtained and were found to be unremarkable. He was given IV fluids and Toradol and his headache resolved. He has no other acute complaints or concerns. He feels comfortable being discharged. He is to follow-up with primary care, return to the ED with worsening or new concerning symptoms of any sort. - Vital Signs Vital signs: Temp Pulse Resp BP Pulse Ox 98.1 F 71 158/83 H 97 08/17/18 18:09 08/17/18 18:09 08/17/18 18:09 08/17/18 18:09 - Laboratory Result Diagrams: 08/17/18 19:06 08/17/18 19:06 Laboratory results interpreted by me: 08/17/18 08/17/18 19:06 19:55 Sodium 136.2 L Urine Blood MODERATE H Discharge - Discharge Clinical Impression: Generalized weakness Headache Qualifiers: Headache type: unspecified Headache chronicity pattern: acute headache Intractability: not intractable Qualified Code(s): R51 - Headache Condition: Stable Disposition: HOME, SELF-CARE Instructions: Headache ([facility]) Additional Instructions: Rest, stay well-hydrated. Follow-up with your primary care physician this week. Return the emergency department with worsening or new concerning symptoms of any sort.
[2018-08-17 22:53] VITALS: BP 142/87
== END 2018-08-17 22:53 | disposition home or self-care (01) ==
LOC: ER 18:04
DX: R51 Headache (principal); R53.1 Weakness; F31.9 Bipolar disorder, unspecified; Z87.442 Personal history of urinary calculi; Z90.49 Acquired absence of other specified parts of digestive tract
CPT/HCPCS: 99284; 36415; 85025; 80053; 81001; 80307; J7030

== ENCOUNTER 2019-02-13 14:44 | Emergency (ER) | payer MEDICARE ==
[2019-02-13] MEDS ORDERED: ACETAMINOPHEN 325 MG TABLET PO ONE (16:43)
--- NOTE | 2019-02-13 16:45 | ER Document Report ---
ED Medical Screen (RME) - General Chief Complaint: Headache <24 hrs old Stated Complaint: WEAKNESS Time Seen by Provider: 02/13/19 16:38 Information source: Patient Notes: Patient presents complaining of headache, fatigue and ankle swelling that started around 10 AM today. Patient reports headache pain to the frontal area. Patient also reports shortness of breath with mild cough. Patient states shortness of breath is worse with exertion. Patient states he had a cough for few days. No nausea or vomiting. Patient states he used to have a history of hypertension but was taken off of his blood pressure medication. I have greeted and performed a rapid initial assessment of this patient. A comprehensive ED assessment and evaluation of the patient, analysis of test results and completion of the medical decision making process will be conducted by additional ED providers. TRAVEL OUTSIDE OF THE [place] IN LAST 30 DAYS: No - Related Data Allergies/Adverse Reactions: No Known Allergies Allergy (Verified 02/13/19 16:31) Past Medical History - Past Medical History Cardiac Medical History: Reports: Hx Hypertension Pulmonary Medical History: Denies: Hx COPD Neurological Medical History: Denies: Hx Seizures Renal/ Medical History: Reports: Hx Kidney Stones. Denies: Hx Peritoneal Dialysis Psychiatric Medical History: Reports: Hx Bipolar Disorder, Hx Depression, Hx S chizoaffective Disorder, Hx Schizophrenia Past Surgical History: Reports: Hx Cholecystectomy, Hx Kidney (Renal Surgery) - Immunizations Hx Diphtheria, Pertussis, Tetanus Vaccination: No Physical Exam - Vital signs Vitals: Temp Resp Pulse Ox 98.4 F 17 99 02/13/19 14:45 02/13/19 14:45 02/13/19 14:45 - General General appearance: Appears well, Alert - Neurological Cognition: Normal Angie Coma Scale Eye Opening: Spontaneous Angie Coma Scale Verbal: Oriented Angie Coma Scale Motor: Obeys Commands [place] Coma Scale Total: 15 Course - Vital Signs Vital signs: Temp Pulse Resp BP Pulse Ox 98.4 F 73 17 178/75 H 99 02/13/19 15:20 02/13/19 15:20 02/13/19 15:20 02/13/19 15:20 02/13/19 15:20
[2019-02-13 17:18] LABS: ABSOLUTE EOSINOPHILS # (AUTO) 0.2 10^3/uL (0.0-0.6); ABSOLUTE MONOCYTES (AUTO) 0.7 10^3/uL (0.1-1.4); ABSOLUTE NEUT (AUTO) 3.8 10^3/uL (1.7-8.2); BASOPHILS % (AUTO) 0.7 % (0-2); EOSINOPHILS % (AUTO) 3.3 % (0-6); HEMATOCRIT 42.1 % (37.9-51.0); HEMOGLOBIN 14.3 g/dL (13.5-17.0); LYMPHOCYTES % (AUTO) 17.8 % (13-45); MEAN CORPUSCULAR HEMOGLOBIN 32.2 pg (27.0-33.4); MEAN CORPUSCULAR HGB CONC 33.9 g/dL (32.0-36.0); MEAN CORPUSCULAR VOLUME 95 fl (80-97); MONOCYTES % (AUTO) 11.8 % (3-13); PLATELET COUNT 251 10^3/uL (150-450); RED BLOOD COUNT 4.43 10^6/uL (4.35-5.55); RED CELL DISTRIBUTION WIDTH 14.8 % (11.5-14.0); SEGMENTED NEUTROPHILS % (AUTO) 66.4 % (42-78); TOTAL CELLS COUNTED % (AUTO) 100 %; WHITE BLOOD COUNT 5.7 10^3/uL (4.0-10.5)
--- NOTE | 2019-02-13 17:38 | RADIOLOGY REPORT (SQ) ---
EXAM DESCRIPTION: CHEST 2 VIEWS COMPLETED DATE/TIME: 02/13/2019 5:10 pm REASON FOR STUDY: sob COMPARISON: 02/17/2017 TECHNIQUE: Frontal and lateral radiographic views of the chest acquired. NUMBER OF VIEWS: Two view. LIMITATIONS: None. FINDINGS: LUNGS AND PLEURA: No pneumothorax. Similar chronic interstitial changes. No consolidatio n or pleural effusion. MEDIASTINUM AND HILAR STRUCTURES: Stable. HEART AND VASCULAR STRUCTURES: Stable. BONES: No acute findings. HARDWARE: None in the chest. OTHER: No other significant finding. IMPRESSION: NO ACUTE FINDINGS. TECHNICAL DOCUMENTATION: JOB ID: [id number] 2010 [employer]- All Rights Reserved Reading location - IP/workstation name: [email or web address]
[2019-02-13 17:44] LABS: ALBUMIN 4.5 g/dL (3.5-5.0); ALKALINE PHOSPHATASE 117 U/L (38-126); ANION GAP 12 (5-19); ASPARTATE AMINO TRANSFERASE 37 U/L (17-59); BILIRUBIN,DIRECT 0.1 mg/dL (0.0-0.4); BILIRUBIN,TOTAL 0.4 mg/dL (0.2-1.3); BLOOD UREA NITROGEN 18 mg/dL (7-20); CALCIUM 9.9 mg/dL (8.4-10.2); CARBON DIOXIDE 29 mmol/L (22-30); CHLORIDE 100 mmol/L (98-107); GLUCOSE 78 mg/dL (75-110); TOTAL PROTEIN 7.9 g/dL (6.3-8.2)
[2019-02-13 17:55] LABS: NT PRO BNP 693 pg/mL (<125)
[2019-02-13 17:56] LABS: TROPONIN I < 0.012 ng/mL
[2019-02-13 20:36] LABS: APPEARANCE,URINE CLEAR; BILIRUBIN,URINE NEGATIVE (NEGATIVE); COLOR,URINE YELLOW; GLUCOSE, URINE NEGATIVE (NEGATIVE); KETONES,URINE NEGATIVE (NEGATIVE); LEUKOCYTE ESTERASE,URINE NEGATIVE (NEGATIVE); NITRITE,URINE NEGATIVE (NEGATIVE); PROTEIN,URINE NEGATIVE (NEGATIVE); URINE SPECIFIC GRAVITY 1.017; UROBILINOGEN,URINE NEGATIVE mg/dL (<2.0)
[2019-02-13 21:49] VITALS: BP 153/79
--- NOTE | 2019-02-13 21:56 | EKG REPORT ---
SEVERITY:- BORDERLINE ECG - SINUS RHYTHM BORDERLINE T ABNORMALITIES, ANT-LAT LEADS : Confirmed by: Arian Roper MD 13-Feb-2019 21:54:56
--- NOTE | 2019-03-03 12:49 | ER Document Report ---
Entered by PHILIP ALCAZAR SCRIBE 02/13/[id number] Acting as scribe for:VICKY RICHARDS IV, MD ED General - General Chief Complaint: Headache <24 hrs old Stated Complaint: WEAKNESS Time Seen by Provider: 02/13/19 16:38 Primary Care Provider: SHREYA KELSEY MD [HONORARY] - Follow up as needed TRAVEL OUTSIDE OF THE [place] IN LAST 30 DAYS: No - Related Data Allergies/Adverse Reactions: No Known Allergies Allergy (Verified 02/13/19 16:31) Past Medical History - General Information source: Patient - Social History Smoking Status: Never Smoker Family History: Hypertension - Negative for premature coronary artery disease or sudden cardiac in the immediate family members Patient has suicidal ideation: No Patient has homicidal ideation: No - Past Medical History Cardiac Medical History: Reports: Hx Hypertension Pulmonary Medical History: Denies: Hx COPD Neurological Medical History: Denies: Hx Seizures Renal/ Medical History: Reports: Hx Kidney Stones. Denies: Hx Peritoneal Dialysis Psychiatric Medical History: Reports: Hx Bipolar Disorder, Hx Depression, Hx Schizoaffective Disorder, Hx Schizophrenia Past Surgical History: Reports: Hx Cholecystectomy, Hx Kidney (Renal Surgery) - Immunizations Hx Diphtheria, Pertussis, Tetanus Vaccination: No Physical Exam - Vital signs Vitals: Temp Resp Pulse Ox 98.4 F 17 99 02/13/19 14:45 02/13/19 14:45 02/13/19 14:45 Course - Vital Signs Vital signs: Temp Pulse Resp BP Pulse Ox 98.2 F 70 17 153/79 H 98 02/13/19 21:49 02/13/19 21:49 02/13/19 21:49 02/13/19 21:49 02/13/19 21:49 - Laboratory Result Diagrams: 02/13/19 16:55 02/13/19 16:55 Laboratory results interpreted by me: 02/13/19 02/13/19 02/13/19 16:55 16:55 20:09 RDW 14.8 H NT-Pro-B Natriuret Pep 693 H Urine Blood SMALL H - EKG Interpretation by Me Additional EKG results interpreted by me: 02/13/19 21:05 EKG performed on 02/13/2019 at 1713 hrs. was interpreted by this MD. Findings: Sinus rhythm, rate 76 normal axis, P waves preceding QRS complexes, QRS complex appears narrow, there are no patterns of ST segment elevation or depression suggestive of acute myocardial ischemia or infarction. Impression normal sinus rhythm with nonspecific ST segments. Discharge - Discharge Clinical Impression: Headache Qualifiers: Headache type: unspecified Headache chronicity pattern: unspecified pattern Intractability: not intractable Qualified Code(s): R51 - Headache Fatigue due to excessive exertion Qualifiers: Encounter type: initial encounter Qualified Code(s): T73.3XXA - Exhaustion due to excessive exertion, initial encounter Condition: Good Disposition: HOME, SELF-CARE Additional Instructions: Return to the Emergency Department without delay if any worse. HOME CARE INSTRUCTIONS & INFORMATION: Thank you for choosing us for your medical needs. We hope you're satisfied with the care you received. After you leave, you must properly care for your problem and, at the same time, observe its progress. Any condition can change. Some illnesses can change rapidly over hours or days. If your condition worsens, return to the Emergency Department or see your physician promptly. ABOUT YOUR X-RAYS AND EKG'S: If you had an EKG or X-rays taken, they have been read by the Emergency Physician. The X-rays and EKG's will also be read by a Radiologist or Dedicated Local Truck Driver within 24 hours. If discrepancies are noted, you will be notified by telephone. Please be certain the ED has a correct telephone number & address where you can be reached. Also, realize that some fractures or abnormalities do not show up on initial X-rays. If your symptoms continue, see your physician. ABOUT YOUR LABORATORY TEST: If you had laboratory tests, the results have been reviewed by the Emergency Physician. Some test results (for example cultures) may not be available for several days. You will be contacted if any test result shows you need additional treatment. Please be certain the ED has a correct [email or web address] number and address where you can be reached. ABOUT YOUR MEDICATIONS: You will receive instructions on how to take your medicine on the prescription label you receive. Additional information may be provided by the Pharmacy. If you have questions afterwards, call the ED for clarification or further instructions. Some prescribed medications may cause drowsiness. Do not perform tasks such as driving a car or operating machinery without consulting your Pharmacist. If you feel you need a refill of pain medication, your condition will need re-evaluation. Please do not call for a refill of any medication. ABOUT YOUR SIGNATURE: Signature of this document acknowledges to followin. Understanding that you received emergency treatment and that you may be released before al medical problems are known or treated. Please be certain the ED has a correct phone number & address where you can be reached. 2. Acknowledgement that you will arrange for follow-up care as recommended. 3. Authorization for the Emergency Physician to provide information to your follow-up Physician in order to maximize your care. AT ANY TIME, IF YOUR SYMPTOMS CHANGE SIGNIFICANTLY OR WORSEN OR YOU DEVELOP NEW SYMPTOMS, RETURN TO THE EMERGENCY DEPARTMENT IMMEDIATELY FOR RE-EVALUATION. OUR GOAL IS TO PROVIDE EXCELLENT MEDICAL CARE! WE HOPE THAT WE HAVE MET YOUR EXPECTATIONS DURING YOUR EMERGENCY DEPARTMENT VISIT AND THAT YOU FEEL YOU HAVE RECEIVED EXCELLENT CARE! Referrals: SHREYA KELSEY MD [HONORARY] - Follow up as needed I personally performed the services described in the documentation, reviewed and edited the documentation which was dictated to the scribe in my presence, and it accurately records my words and actions.
== END 2019-02-13 21:49 | disposition home or self-care (01) ==
LOC: ER 14:44
DX: R51 Headache (principal); M79.89 Other specified soft tissue disorders; R53.1 Weakness; T73.3XXA Exhaustion due to excessive exertion, initial encounter; I10 Essential (primary) hypertension
CPT/HCPCS: 93005; 99284; 36415; 85025; 80053; 81001; 84484; 83880; 71046; 93010; A9270

== ENCOUNTER 2019-04-04 01:01 | Emergency (ER) | payer MEDICARE ==
--- NOTE | 2019-04-04 04:29 | RADIOLOGY REPORT (SQ) ---
Ultrasound scrotum and testicles on 04/04/2019 at 3:56 AM CLINICAL INDICATION: Testicular injury/pain COMPARISON: 07/21/2018 FINDINGS: Multiple sonographic images are obtained throughout the scrotum and testicles, both transverse and sagittal images are obtained. Bilateral testicles are homogeneous in echotexture without evidence of an intratesticular mass. Flow is demonstrated within both testicles without evidence of torsion or unilateral increased flow to suggest epididymoorchitis. There are likely partly thrombosed bilateral varicoceles noted. No other extratesticular abnormality is noted. IMPRESSION: Findings most consistent with partly thrombosed bilateral varicoceles. Otherwise essentially unremarkable.
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
[2019-04-04] MEDS ORDERED: LIDOCAINE 1% INJ-PF (10 MG/ML) 30 ML SDV INJ ONE (08:36)
[2019-04-04] MEDS ORDERED: AZITHROMYCIN 250 MG TABLET PO ONE (08:36)
[2019-04-04] MEDS ORDERED: CEFTRIAXONE INJ 250 MG VIAL IM ONE (08:36)
[2019-04-04 09:00] VITALS: BP 155/78
[2019-04-04 10:19] LABS: CHLAM PCR NOT DETECTED (NOT DETECT)
== END 2019-04-04 09:00 | disposition home or self-care (01) ==
LOC: ER 01:01
DX: I86.1 Scrotal varices (principal); N41.0 Acute prostatitis; N50.82 Scrotal pain; I10 Essential (primary) hypertension
CPT/HCPCS: 99284; 96372; 87491; 87591; 76870; 93976; A9270; J3490; J0696

== ENCOUNTER 2019-05-05 05:51 | Emergency (ER) | payer MEDICARE ==
[2019-05-05] MEDS ORDERED: FUROSEMIDE INJ/PF 20 MG/2 ML SDV IV ONE (07:13)
[2019-05-05 07:18] LABS: ABSOLUTE EOSINOPHILS # (AUTO) 0.1 10^3/uL (0.0-0.6); ABSOLUTE MONOCYTES (AUTO) 0.7 10^3/uL (0.1-1.4); ABSOLUTE NEUT (AUTO) 3.3 10^3/uL (1.7-8.2); BASOPHILS % (AUTO) 0.8 % (0-2); EOSINOPHILS % (AUTO) 2.2 % (0-6); HEMATOCRIT 38.4 % (37.9-51.0); HEMOGLOBIN 13.5 g/dL (13.5-17.0); LYMPHOCYTES % (AUTO) 19.7 % (13-45); MEAN CORPUSCULAR HEMOGLOBIN 31.5 pg (27.0-33.4); MEAN CORPUSCULAR VOLUME 90 fl (80-97); PLATELET COUNT 141 10^3/uL (150-450); RED BLOOD COUNT 4.28 10^6/uL (4.35-5.55); RED CELL DISTRIBUTION WIDTH 13.2 % (11.5-14.0); SEGMENTED NEUTROPHILS % (AUTO) 63.3 % (42-78); TOTAL CELLS COUNTED % (AUTO) 100 %; WHITE BLOOD COUNT 5.2 10^3/uL (4.0-10.5)
[2019-05-05 07:29] LABS: ALKALINE PHOSPHATASE 80 U/L (38-126); ANION GAP 10 (5-19); ASPARTATE AMINO TRANSFERASE 62 U/L (17-59); BILIRUBIN,DIRECT 0.3 mg/dL (0.0-0.4); BILIRUBIN,TOTAL 0.3 mg/dL (0.2-1.3); BLOOD UREA NITROGEN 13 mg/dL (7-20); CARBON DIOXIDE 26 mmol/L (22-30); CHLORIDE 100 mmol/L (98-107); CREATINE KINASE 932 U/L (55-170); GLUCOSE 94 mg/dL (75-110); POTASSIUM 3.7 mmol/L (3.6-5.0); TOTAL PROTEIN 7.1 g/dL (6.3-8.2); URIC ACID 4.5 mg/dL (3.5-8.5)
[2019-05-05 07:40] LABS: NT PRO BNP 788 pg/mL (<125)
[2019-05-05 07:41] LABS: TROPONIN I < 0.012 ng/mL
--- NOTE | 2019-05-05 08:13 | RADIOLOGY REPORT (SQ) ---
EXAM DESCRIPTION: CHEST SINGLE VIEW COMPLETED DATE/TIME: 05/05/2019 6:25 am REASON FOR STUDY: Peripheral edema, hypertension, noncompliance COMPARISON: 02/13/2019 EXAM PARAMETERS: NUMBER OF VIEWS: One view. TECHNIQUE: Single frontal radiographic view of the chest acquired. RADIATION DOSE: NA LIMITATIONS: None. FINDINGS: LUNGS AND PLEURA: Lungs are hyperinflated. No focal consolidation or pleural effusion. N o pneumothorax. MEDIASTINUM AND HILAR STRUCTURES: No masses. Contour normal. HEART AND VASCULAR STRUCTURES: Heart normal in size. Normal vasculature. BONES: No acute findings. HARDWARE: None in the chest. OTHER: No other significant finding. IMPRESSION: Hyperinflated lungs which can be seen with obstructive lung disease. No focal consolida tion or pleural effusion. TECHNICAL DOCUMENTATION: JOB ID: [id number] 2010 [employer]- All Rights Reserved Reading location - IP/workstation name: [email or web address]
--- NOTE | 2019-05-05 08:29 | ER Document Report ---
Entered by PHILIP ALCAZAR SCRIBE 05/05/19 0708 Acting as scribe for:TOMMY HARRISON MD ED Extremity Problem, Lower - General Chief Complaint: Swelling of Lower Extremity Stated Complaint: LEG PAIN Time Seen by Provider: 05/05/19 06:56 Mode of Arrival: Medic Information source: Patient Notes: This schizophrenic homeless 63-year-old male patient presents to the emergency department today with complaints of bilateral leg swelling for the last 2 weeks. Patient states he has had leg swelling in the past but adds that it has never been this bad. Patient was picked up at the [facility] after shopping by EMS, stating he could no longer ambulate due to pain. Patient also complains of some shortness of breath. Patient has past medical history of bipolar schizoaffective disorder, he is not taking medications. When asked where he is staying, he said the homeless retirement, but he is not spent the night there yet. He states he got out of alf 1 week ago. He has been doing a lot of walking. When asked again where he is been sleeping or staying, he states the manager registration at [employer] wanted him to come back at 3:00. TRAVEL OUTSIDE OF THE [place] IN LAST 30 DAYS: No - Related Data Allergies/Adverse Reactions: No Known Allergies Allergy (Verified 05/05/19 11:02) Past Medical History - General Information source: Patient - Social History Smoking Status: Never Smoker Cigarette use (# per day): No Chew tobacco use (# tins/day): No Frequency of alcohol use: None Drug Abuse: None Lives with: Homeless Family History: Hypertension - Negative for premature coronary artery disease or sudden cardiac in the immediate family members Patient has suicidal ideation: No Patient has homicidal ideation: No - Past Medical History Cardiac Medical History: Reports: Hx Hypertension Renal/ Medical History: Reports: Hx Kidney Stones Psychiatric Medical History: Reports: Hx Bipolar Disorder, Hx Depression, Hx Schizoaffective Disorder, Hx Schizophrenia Past Surgical History: Reports: Hx Cholecystectomy, Hx Kidney (Renal Surgery) - Immunizations Hx Diphtheria, Pertussis, Tetanus Vaccination: No Review of Systems - Review of Systems Constitutional: No symptoms reported EENT: No symptoms reported Cardiovascular: No symptoms reported Respiratory: See HPI, Short of breath Gastrointestinal: No symptoms reported Genitourinary: No symptoms reported Male Genitourinary: No symptoms reported Musculoskeletal: See HPI, Leg swelling, Ankle swelling Skin: No symptoms reported Hematologic/Lymphatic: No symptoms reported Neurological/Psychological: No symptoms reported -: Yes All other systems reviewed and negative Physical Exam - Vital signs Vitals: Temp Pulse Resp BP Pulse Ox 97.9 F 73 16 162/86 H 99 05/05/19 06:01 05/05/19 06:01 05/05/19 06:01 05/05/19 06:01 05/05/19 06:01 - Notes Notes: Physical Exam: General: Alert. HEENT: Normocephalic. Atraumatic. PERRL. Extraocular movements intact. Oropharynx clear. Neck: Supple. Non-tender. JVD. Respiratory: No respiratory distress. Clear and equal breath sounds bilaterally. Cardiovascular: Regular rate and rhythm. There is significant venous distension in the right antecubital fossa as well as in the right scalp. Abdominal: Normal Inspection. Non-tender. No distension. Normal Bowel Sounds. Back: No gross abnormalities. Extremities: Moves all four extremities. Upper extremities: Normal inspection. Normal ROM. Lower extremities: 2-3+ edema bilaterally with a shiny appearance with assoc iated erythema and warmth. Neurological: Normal cognition. AAOx4. Normal speech. Psychological: baseline per records Skin: Warm. Dry. Normal color. Course - Re-evaluation Re-evalutation: 05/05/19 14:31 The patient was seen by the mental health provider and social service assistant, he was quite confrontational and they were unable to help him due to his behavior towards them. When I tried to discuss his findings today and what he needed to do to help with the swelling, he likewise became confrontational with me and began accusing me of all sorts of things. I informed him that he would need to elevate his legs to help the swelling go down. I would write more detailed instructions. And he would need to follow-up with his primary care provider and mental health provider. - Vital Signs Vital signs: Temp Pulse Resp BP Pulse Ox 97.6 F 73 13 115/62 97 05/05/19 13:40 05/05/19 06:01 05/05/19 09:01 05/05/19 09:01 05/05/19 09:01 - Laboratory Result Diagrams: 05/05/19 07:00 03/03/20 07:00 Laboratory results interpreted by me: 05/05/19 05/05/19 05/05/19 07:00 07:00 07:00 RBC 4.28 L Plt Count 141 L Gregg % (Auto) 14.0 H Sodium 136.0 L AST 62 H Creatine Kinase 932 H NT-Pro-B Natriuret Pep 788 H - Diagnostic Test Radiology reviewed: Image reviewed, Reports reviewed - Chest x-ray shows the lungs to be hyperinflated, no other abnormalities. - EKG Interpretation by Me EKG shows normal: Sinus rhythm, [place], Intervals, QRS Complexes. abnormal: ST-T Waves - Diffuse nonspecific T abnormalities Rate: Normal - 59 Rhythm: NSR Discharge - Discharge Clinical Impression: Peripheral edema Rhabdomyolysis Qualifiers: Rhabdomyolysis type: non-traumatic Qualified Code(s): M62.82 - Rhabdomyolysis Condition: Stable Disposition: HOME, SELF-CARE Additional Instructions: Edema, Peripheral: You have swelling in your legs. This is called peripheral edema. It can be caused by "leaky capillaries," inflammation, disease of the leg veins, or excess salt and water in your body. Edema may be a sign of heart, kidney, or liver disease. A medical evaluation can determine if there is a serious underlying cause for your edema. Avoid prolonged standing. If you must sit for a long time, occasionally get up and walk around or elevate your legs. Support stockings can be helpful in limiting swelling. Often diuretic or water pills are used to remove excess salt and water from your body. Call the doctor or return if you develop increased swelling, pain, or redness, shortness of breath, chest pain, or any other significant change. The swelling in your legs is probably due to being up doing excessive walking. This is also caused an elevation in creatine kinase enzymes from breakdown of muscle. You need to elevate your feet as much as possible to help the swelling go down. You should limit walking and exertional activities for a few days to let the muscles heal. You should drink plenty of fluids to help wash the excessive muscle enzymes out of your bloodstream. Avoid salt and high sodium foods to help reduce the swelling in your legs. Follow-up with your primary care provider or your mental health providers for further management of your problems. RETURN TO THE EMERGENCY ROOM IF ANY NEW OR WORSENING SYMPTOMS. I personally performed the services described in the documentation, reviewed and edited the documentation which was dictated to the scribe in my presence, and it accurately records my words and actions.
[2019-05-05 09:33] LABS: APPEARANCE,URINE CLEAR; BILIRUBIN,URINE NEGATIVE (NEGATIVE); COLOR,URINE STRAW; GLUCOSE, URINE NEGATIVE (NEGATIVE); KETONES,URINE NEGATIVE (NEGATIVE); LEUKOCYTE ESTERASE,URINE NEGATIVE (NEGATIVE); NITRITE,URINE NEGATIVE (NEGATIVE); PROTEIN,URINE NEGATIVE (NEGATIVE); URINE SPECIFIC GRAVITY 1.006; UROBILINOGEN,URINE NEGATIVE mg/dL (<2.0)
--- NOTE | 2019-05-05 12:21 | EKG REPORT ---
SEVERITY:- ABNORMAL ECG - SINUS RHYTHM NONSPECIFIC T ABNORMALITIES, DIFFUSE LEADS : Confirmed by: Arian Roper MD 05-May-2019 12:21:00
--- NOTE | 2019-05-05 14:20 | PSYCHOLOGICAL NOTE ---
Psych Note - Psych Note Date seen by psych provider: 05/05/19 Time seen by psych provider: 11:30 Psych Note: Reason for Consult:noncompliance, socioeconomic stressors Patient presented to [facility] ED with concern for increased pain in legs and being unable to walk. Patient denies remembering clinician and denies a history of mental health. Patient became agitated and states he does not have mental health because he does not take any medications. He denies remembering living at [facility] or having ACTT. He reports a place to live to clinician; however, he told another staff member he was willing to go to the homeless nursing home upon discharge. He became agitated when denying ACTT. He asked clinician if he needed to get a sba underwriter because he did not want to talk with clinician anymore. Clinician ended evaluation per patient's request. Clinician made multiple attempts to contact DSS, Adult Protective Services. Will continue to attempt contact. Patient is alert and orientated to person, place time and circumstance. Patient presents irritable with congruent affect. He denies suicidal and homicidal ideation. He is observed eating a box of cereal that he brought with him to the ED. There is a notable body odor coming from the patient. Delusions are absent behaviors congruent with an intact reality based presentation i.e. organized and linear thought processes. However, it is noted thought processes are very concrete and thought content is guarded. There is reports from other [facility] staff the patient demonstrated tangential and or flight of thought (this was not observed with clinician, possibly due to his defensive presentation). Eye contact is well-maintained. Conversational speech is defensive and clearly conveys his irritability. Attention and concentration are fair. Insight, judgment, impulse control are fair. Impression/Plan: Patient is cleared from acute psychiatric services. He refuses to fully and effectively engage in evaluation. Patient is very defensive and guarded; this could be contributed to the patient's refusal to discuss his mental health history. Patient was last seen in 2017 by the behavioral health team and has been seen multiple times by this clinician. He has a diagnosis of Scizoaffective disorder; bipolar type. He has a history of multiple inpatient psychiatric treatment stays, residential housing at [facility], and the use of [facility] ACTT for higher level of outpatient mental health services. He historically has poor coping skills, highly sexualized behaviours, is noncompliant with medications and had refused to engage in ACTT services. There has been concern in the past for possible neurodegenerative processes for the patient; unfortunately, attempts to obtain imagine have been unsuccessful. Patient is his own legal guardian and self determines the course of his treatment for both mental health and medical. The patient is recommended to receive a comprehensive clinician assessment; this is conducted in an outpatient setting and the patient would have to chose to engage. The medical team report there is no need for medical admission to the hospital, and he does not meet IVC criteria per [place] GS 122 C. Patient is able to obtain food and feed self, and while he chooses not to take medications he does not need to be medically admitted for imminent deterioration and called for medical assistance when concerned when his condition became worse and was not able to walk. These actions show he has been successful taking care of him self and is able to reach out for assistance if he wants. Dr. Null was consulted on the care management of this patient; attending physicians in agreement with recommendations and disposition.
[2019-05-05 15:16] VITALS: BP 130/76
== END 2019-05-05 15:17 | disposition home or self-care (01) ==
LOC: ER 05:51
DX: R60.9 Edema, unspecified (principal); M62.82 Rhabdomyolysis; F25.0 Schizoaffective disorder, bipolar type; R06.02 Shortness of breath; I10 Essential (primary) hypertension; Z87.442 Personal history of urinary calculi; Z90.49 Acquired absence of other specified parts of digestive tract; Z91.14 Patient's other noncompliance with medication regimen; Z59.0 Homelessness
CPT/HCPCS: 93005; 99285; 96374; 36415; 82550; 84550; 85025; 80053; 81001; 84484; 83880; 71045; 93010; J1940

== ENCOUNTER 2019-05-06 22:44 | Emergency (ER) | payer MEDICARE ==
--- NOTE | 2019-05-06 23:33 | ER Document Report ---
ED Medical Screen (RME) - General Stated Complaint: BILATERAL FOOT PAIN Time Seen by Provider: 05/06/19 23:21 Notes: 63-year-old male that comes to the emergency department for chief complaint of severe swelling in his legs and feet. He states he was seen yesterday but he is worsening since that time. He denies shortness of breath, history of heart failure. He denies chest pain. He denies injury. He has not on any daily medications reportedly. TRAVEL OUTSIDE OF THE [place] IN LAST 30 DAYS: No - Related Data Allergies/Adverse Reactions: No Known Allergies Allergy (Verified 05/05/19 11:02) Past Medical History - Past Medical History Cardiac Medical History: Reports: Hx Hypertension Pulmonary Medical History: Denies: Hx COPD Neurological Medical History: Denies: Hx Seizures Renal/ Medical History: Reports: Hx Kidney Stones. Denies: Hx Peritoneal Dialysis Psychiatric Medical History: Reports: Hx Bipolar Disorder, Hx Depression, Hx Schizoaffective Disorder, Hx Schizophrenia Past Surgical History: Reports: Hx Cholecystectomy, Hx Kidney (Renal Surgery) - Immunizations Hx Diphtheria, Pertussis, Tetanus Vaccination: No Physical Exam - Vital signs Vitals: Temp Pulse Resp BP Pulse Ox 97.7 F 79 20 161/92 H 97 05/06/19 22:52 05/06/19 22:52 05/06/19 22:52 05/06/19 22:52 05/06/19 22:52 - Extremities General lower extremity: Edema - severe swelling of both feet and legs with 3+ pitting edema Course - Re-evaluation Re-evalutation: Patient appears to have a psychiatric component to his situation, has all his belongings with him, is talking about recently being in on both [facility] and [facility]. Denying any daily medications. Has severe swelling of the lower extremities. Will compare work-up to previous. I have greeted and performed a rapid initial assessment of this patient. A comprehensive ED assessment and evaluation of the patient, analysis of test results and completion of the medical decision making process will be conducted by additional ED providers. - Vital Signs Vital signs: Temp Pulse Resp BP Pulse Ox 97.7 F 79 20 161/92 H 97 05/06/19 22:52 05/06/19 22:52 05/06/19 22:52 05/06/19 22:52 05/06/19 22:52
[2019-05-06 23:48] LABS: ABSOLUTE EOSINOPHILS # (AUTO) 0.2 10^3/uL (0.0-0.6); ABSOLUTE MONOCYTES (AUTO) 0.6 10^3/uL (0.1-1.4); ABSOLUTE NEUT (AUTO) 3.5 10^3/uL (1.7-8.2); BASOPHILS % (AUTO) 0.8 % (0-2); EOSINOPHILS % (AUTO) 3.1 % (0-6); HEMATOCRIT 38.7 % (37.9-51.0); LYMPHOCYTES % (AUTO) 18.3 % (13-45); MEAN CORPUSCULAR HEMOGLOBIN 30.8 pg (27.0-33.4); MEAN CORPUSCULAR HGB CONC 33.6 g/dL (32.0-36.0); MEAN CORPUSCULAR VOLUME 92 fl (80-97); MONOCYTES % (AUTO) 11.5 % (3-13); PLATELET COUNT 132 10^3/uL (150-450); RED BLOOD COUNT 4.21 10^6/uL (4.35-5.55); RED CELL DISTRIBUTION WIDTH 13.4 % (11.5-14.0); SEGMENTED NEUTROPHILS % (AUTO) 66.3 % (42-78); TOTAL CELLS COUNTED % (AUTO) 100 %; WHITE BLOOD COUNT 5.3 10^3/uL (4.0-10.5)
[2019-05-07 00:02] LABS: ANION GAP 9 (5-19); BLOOD UREA NITROGEN 17 mg/dL (7-20); CALCIUM 9.1 mg/dL (8.4-10.2); CARBON DIOXIDE 23 mmol/L (22-30); CHLORIDE 106 mmol/L (98-107); GLUCOSE 87 mg/dL (75-110); POTASSIUM 3.7 mmol/L (3.6-5.0)
--- NOTE | 2019-05-07 00:10 | RADIOLOGY REPORT (SQ) ---
EXAM DESCRIPTION: AP portable view of the chest CLINICAL HISTORY: 63 years Male, hypertensive, worsening swelling in legs, ? edema COMPARISON: Portable view of the chest 05/05/2019 FINDINGS: Lungs: Lung volumes have decreased and there is development of subtle groundglass opacification in the lung parenchyma. No pneumothorax or pleural effusion. Mediastinum: Cardiac and mediastinal silhouette are unchanged Bones: Endplate spondylosis in the thoracic spine There is distention of multiple bowel loops in the upper abdomen which is nonspecific IMPRESSION: Low lung volume chest radiograph with groundglass opacification bilaterally.
--- NOTE | 2019-05-07 02:16 | ER Document Report ---
Doctor's Note Notes: 05/07/19 02:11 I did review this patient's chart. I reviewed his labs in [facility]. I went in to evaluate the patient. I started asked the patient questions. He became verbally abusive. He began swearing intermittently, grabbing at his crotch. He refused to answer any questions for me. I repeatedly tried to ask him questions he became more aggressive. He told me he did not want to see a doctor. I asked him repeatedly if he wanted to change his mind. He stated repeatedly that he would not. I reviewed this patient's chart and his vital signs which are unremarkable. I do believe he should follow-up, and I told him so verbally. I explained to him that I did not have a clear picture of what was going on and I could not rule out a more serious condition. He stated he did not care and still would not answer questions. He again repeated to me repeatedly stated she did not want to see a physician. He will leave AGAINST MEDICAL ADVICE. I had a very limited interaction with the patient. I did not perform a physical exam of the patient. I did again review his chart.
[2019-05-07 02:30] VITALS: BP 163/86
== END 2019-05-07 02:32 | disposition left against medical advice (07) ==
LOC: ER 22:44
DX: M79.89 Other specified soft tissue disorders (principal); I10 Essential (primary) hypertension; Z87.442 Personal history of urinary calculi; Z90.49 Acquired absence of other specified parts of digestive tract
CPT/HCPCS: 36415; 71045; 80048; 83880; 85025; 99283

== ENCOUNTER 2019-05-09 04:12 | Emergency (ER) | payer MEDICARE ==
[2019-05-09 06:08] LABS: ABSOLUTE EOSINOPHILS # (AUTO) 0.2 10^3/uL (0.0-0.6); ABSOLUTE LYMPHOCYTES (AUTO) 0.9 10^3/uL (0.5-4.7); ABSOLUTE MONOCYTES (AUTO) 0.6 10^3/uL (0.1-1.4); ABSOLUTE NEUT (AUTO) 3.7 10^3/uL (1.7-8.2); BASOPHILS % (AUTO) 0.6 % (0-2); EOSINOPHILS % (AUTO) 3.3 % (0-6); HEMATOCRIT 35.6 % (37.9-51.0); HEMOGLOBIN 12.5 g/dL (13.5-17.0); LYMPHOCYTES % (AUTO) 16.4 % (13-45); MEAN CORPUSCULAR HEMOGLOBIN 31.5 pg (27.0-33.4); MEAN CORPUSCULAR HGB CONC 34.9 g/dL (32.0-36.0); MEAN CORPUSCULAR VOLUME 90 fl (80-97); MONOCYTES % (AUTO) 11.5 % (3-13); PLATELET COUNT 133 10^3/uL (150-450); RED BLOOD COUNT 3.95 10^6/uL (4.35-5.55); RED CELL DISTRIBUTION WIDTH 13.4 % (11.5-14.0); SEGMENTED NEUTROPHILS % (AUTO) 68.2 % (42-78); TOTAL CELLS COUNTED % (AUTO) 100 %; WHITE BLOOD COUNT 5.4 10^3/uL (4.0-10.5)
[2019-05-09 06:21] LABS: ALBUMIN 3.6 g/dL (3.5-5.0); ALKALINE PHOSPHATASE 84 U/L (38-126); ANION GAP 6 (5-19); ASPARTATE AMINO TRANSFERASE 64 U/L (17-59); BILIRUBIN,TOTAL 0.5 mg/dL (0.2-1.3); BLOOD UREA NITROGEN 17 mg/dL (7-20); CALCIUM 8.5 mg/dL (8.4-10.2); CARBON DIOXIDE 27 mmol/L (22-30); CHLORIDE 102 mmol/L (98-107); GLUCOSE 80 mg/dL (75-110); TOTAL PROTEIN 6.3 g/dL (6.3-8.2)
[2019-05-09 06:29] LABS: ACETAMINOPHEN < 10 ug/mL (10-30); ALCOHOL < 10 mg/dL (NONE DETECTED); SALICYLATE < 1.0 mg/dL (2.0-20.0)
--- NOTE | 2019-05-09 08:42 | EKG REPORT ---
SEVERITY:- ABNORMAL ECG - SINUS RHYTHM NONSPECIFIC T ABNORMALITIES, ANT-LAT LEADS : Confirmed by: Arian Roper MD 09-May-2019 08:41:31
--- NOTE | 2019-05-09 13:05 | PSYCHOLOGICAL NOTE ---
Psych Note - Psych Note Date seen by psych provider: 05/09/19 Time seen by psych provider: 08:15 - 1st attempt Psych Note: Reason For Consult:Depression, suicidal ideation Patient is difficult to follow however it appears that he has been homeless and eating out of dumpsters behind restaurants. Patient reports that he is ready to admit that he needs to go into assisted living. He continues to disclose of having passive suicidal thoughts recently however it is unclear exactly when this occurred. Patient frequently moves between current events and news making odd connections to his daily life while being very focused on mormon. Patient does present clearly orientated as he is able to provide current date, that his birthday is coming up on the of this month and identified current events. Patient became tearful at one point when talking about a previous relationship. He frequently states "giving 100%." Patient is alert and orientated to person, place, time and circumstance. Mood is manic with blunted affect. Patient appears to report passive suicidal ideation ie no plans means or intent. He denies homicidal ideation. Patient presents with flight of thought and is difficult to follow during conversation. Eye contact is well-maintained. Conversational speech is pressures. Intellectual abilities appear to be within the average range. Attention and concentration are poor. Insight, judgment, impulse control are fair. Medication recommendations per [facility]'s contracted psychiatrist Dr. Kristine AYALA are as follows Haldol 5mg twice daily Cogentin 1mg daily Impression\\plan:Patient is recommended for IVC. Patient presents with flight of thought, making odd connections to daily life, current events and news while being very focused on mormon. Patient is very difficult to follow however it appears he discloses suicidal ideation that recently occurred. Patient does identify wanting to go to assisted living stating that he is older now and he has accepted that it is okay. While patient has successfully been living on the streets, it is clear his ability to care for himself is deteriorating. Patient has a history of severe chronic mental health that he is noncompliant with treatment. Patient was previously in assisted living many years ago. Patient's presentation of manic mood, blunted affect, pressured speech, and disorganized thought processes needs to be stabilized in order for the patient to obtain assisted living successfully. Medication recommendations have been provided. Dr. Null was consulted to care management of this patient; attending physicians in agreement with recommendations and disposition.
--- NOTE | 2019-05-09 15:45 | ER Document Report ---
ED General - General Chief Complaint: Depression, diarrhea, SI Stated Complaint: DIARRHEA Time Seen by Provider: 05/09/19 06:15 Notes: 63-year-old man brought into the emergency department this morning with diarrhea, schizoaffective disorder and poor compliant with medication treatment. He has been having a difficult time coping and is now requesting some help with his psychiatric problems and the way he is living. He is having watery diarrhea and has soiled his clothes.patient has been having loose bowel movements for the past few days, denies abdominal pain, nausea vomiting. States that he has had depression and is presently living in the street. TRAVEL OUTSIDE OF THE [place] IN LAST 30 DAYS: No - Related Data Allergies/Adverse Reactions: No Known Allergies Allergy (Verified 05/05/19 11:02) Past Medical History - Social History Smoking Status: Never Smoker Chew tobacco use (# tins/day): No Frequency of alcohol use: None Drug Abuse: None Family History: Hypertension - Negative for premature coronary artery disease or sudden cardiac in the immediate family members Patient has suicidal ideation: Yes Patient has homicidal ideation: No - Past Medical History Cardiac Medical History: Reports: Hx Hypertension Pulmonary Medical History: Denies: Hx COPD Neurological Medical History: Denies: Hx Seizures Renal/ Medical History: Reports: Hx Kidney Stones. Denies: Hx Peritoneal Dialysis Psychiatric Medical History: Reports: Hx Bipolar Disorder, Hx Depression, Hx Schizoaffective Disorder, Hx Schizophrenia Past Surgical History: Reports: Hx Cholecystectomy, Hx Kidney (Renal Surgery) - Immunizations Hx Diphtheria, Pertussis, Tetanus Vaccination: No Review of Systems - Review of Systems Notes: Constitutional: Negative for fever. HENT: Negative for sore throat. Eyes: Negative for visual changes. Cardiovascular: Negative for chest pain. Respiratory: Negative for shortness of breath. Gastrointestinal: + Diarrhea, negative for abdominal pain, vomiting Genitourinary: Negative for dysuria. Musculoskeletal: Negative for back pain. Skin: Negative for rash. Neurological: + Depression 10 point ROS negative except as marked above and in HPI. Physical Exam - Vital signs Vitals: Temp Pulse Resp BP Pulse Ox 97.1 F 67 18 143/82 H 100 05/09/19 05:30 05/09/19 05:30 05/09/19 05:30 05/09/19 05:30 05/09/19 05:30 - Notes Notes: PHYSICAL EXAMINATION: Physical Exam: General: Well-nourished well-developed 63-year-old man in no acute distress HEENT: NC/AT, pupils equal round and reactive to light, MM moist,nares clear, oropharynx clear, airway patent Neck: supple, no adenopathy, no masses. Good range of motion Lungs: clear, no wheezing, no rales no rhonchi CVS: Regular rate and rhythm no murmur gallop or rub Abdomen: Soft, active, nontender, no masses, no hepatosplenomegaly Ext: No edema, clubbing or cyanosis. Neuro: Alert and responsive, moving all 4 extremities on command, cranial nerves intact, no focal findings Skin: Intact no open lesions, no rash PSYCH: Depression, suicidal thoughts, poor eye contact and poor communication skills. Course - Re-evaluation Re-evalutation: 05/09/19 15:45 Patient is and labs are reviewed, he appears to be medically clear, I discussed with the psychiatric provider the possibility of getting some form of help for this patient. Reestablishing medical treatment, attempt to find long-term management program. IVC was completed given the patient's danger to self and also depression. - Vital Signs Vital signs: Temp Pulse Resp BP Pulse Ox 97.6 F 62 18 135/79 H 99 05/09/19 10:52 05/09/19 10:52 05/09/19 10:52 05/09/19 10:52 05/09/19 10:52 - Laboratory Result Diagrams: 05/09/19 05:25 05/09/19 05:25 Laboratory results interpreted by me: 05/09/19 05/09/19 05:25 05:25 RBC 3.95 L Hgb 12.5 L Hct 35.6 L Plt Count 133 L Sodium 134.5 L AST 64 H ALT 58 H Salicylates < 1.0 L Acetaminophen < 10 L 05/09/19 15:49 I have reviewed laboratory data and used this information for the treatment decisions regarding the patient. Discharge - Discharge Clinical Impression: Major depression Qualifiers: Major depression recurrence: unspecified whether recurrent Active/Remission status: currently active Major depression episode severity: moderate Qualified Code(s): F32.1 - Major depressive disorder, single episode, moderate Schizoaffective disorder Qualifiers: Schizoaffective disorder type: unspecified Qualified Code(s): F25.9 - Schizoaffective disorder, unspecified Diarrhea Qualifiers: Diarrhea type: unspecified type Qualified Code(s): R19.7 - Diarrhea, unspecified Condition: Good Disposition: PSYCH HOSP/UNIT
[2019-05-09 16:44] LABS: APPEARANCE,URINE CLEAR; BILIRUBIN,URINE NEGATIVE (NEGATIVE); COLOR,URINE STRAW; GLUCOSE, URINE NEGATIVE (NEGATIVE); KETONES,URINE NEGATIVE (NEGATIVE); LEUKOCYTE ESTERASE,URINE NEGATIVE (NEGATIVE); NITRITE,URINE NEGATIVE (NEGATIVE); PROTEIN,URINE NEGATIVE (NEGATIVE); URINE SPECIFIC GRAVITY 1.009; UROBILINOGEN,URINE NEGATIVE mg/dL (<2.0)
[2019-05-09 16:55] LABS: URINE AMPHETAMINES SCREEN NEGATIVE; URINE BARBITURATES SCREEN NEGATIVE; URINE BENZODIAZEPINES SCREEN NEGATIVE; URINE COCAINE SCREEN NEGATIVE; URINE MARIJUANA (THC) SCREEN NEGATIVE; URINE METHADONE SCREEN NEGATIVE; URINE PHENCYCLIDINE SCREEN NEGATIVE
--- NOTE | 2019-05-09 17:11 | RADIOLOGY REPORT (SQ) ---
EXAM DESCRIPTION: CHEST 2 VIEWS COMPLETED DATE/TIME: 05/09/2019 3:55 pm REASON FOR STUDY: evaluation medical clearance Psych. COMPARISON: 05/06/2019 EXAM PARAMETERS: NUMBER OF VIEWS: two views TECHNIQUE: Digital Frontal and Lateral radiographic views of the chest acquired. RADIATION DOSE: NA LIMITATIONS: none FINDINGS: LUNGS AND PLEURA: Lungs are hyperinflated. No focal consolidation or pleural effusion. N o pneumothorax. Mild increased interstitial prominence is stable from previous examinations, consist ent with underlying pulmonary fibrosis/ emphysema. MEDIASTINUM AND HILAR STRUCTURES: No masses or contour abnormalities. HEART AND VASCULAR STRUCTURES: Heart normal size. No evidence for failure. BONES: No acute findings. HARDWARE: None in the chest. OTHER: No other significant finding. IMPRESSION: No significant interval change. Moderate pulmonary emphysema/pulmonary fibrosis is stab le. No acute cardiopulmonary disease. TECHNICAL DOCUMENTATION: JOB ID: [id number] 2010 [employer]- All Rights Reserved Reading location - IP/workstation name: [email or web address]
[2019-05-09] MEDS ORDERED: LORAZEPAM INJ 2 MG/1 ML VIAL IM ONE (20:09)
[2019-05-09] MEDS ORDERED: DIPHENHYDRAMINE HCL 50 MG/ML VIAL IM ONE (20:09)
[2019-05-09] MEDS ORDERED: HALOPERIDOL LACTATE INJ 5 MG/1 ML VIAL IM ONE (20:09)
[2019-05-10] MEDS ORDERED: ACETAMINOPHEN 325 MG TABLET PO ONE (05:42)
[2019-05-10] MEDS: HALOPERIDOL 5 MG TABLET PO SCH ×2 (10:14→18:43)
[2019-05-10] MEDS: BENZTROPINE MESYLATE 1 MG TABLET PO SCH (10:14)
--- NOTE | 2019-05-10 10:21 | PSYCHOLOGICAL NOTE ---
Psych Note - Psych Note Date seen by psych provider: 05/10/19 Time seen by psych provider: 09:00 Psych Note: Reason For Consult:Depression, suicidal ideation Check-in conducted with patient: Patient continues to present manic with elevated mood today. He is more active physically and increasing sexualized comments. 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 it is noted the patient has been watching [employer] and coverage on medical concerns (ie COVID-19) has focused his attention. Medication recommendations per [facility]'s contracted psychiatrist Dr. Kristine AYALA are as follows Haldol 5mg twice daily Cogentin 1mg daily Impression\plan:Patient is recommended for continued IVC. There is little change in patient's presentation other than an increase in psychomotor agitation and energy. Patient continues to present manic with elevated mood today. Medication recommendations were provided by [facility]'s contracted psychiatrist on 05/09/2019; however, attending ED physician did not submit medication orders. Thus, patient has yet to receive psychiatric medications recommended and as such an improvement in behavioral condition is not fully expected. Dr. Null was consulted to care management of this patient; attending physicians in agreement with recommendations and disposition.
[2019-05-10] MEDS ORDERED: FUROSEMIDE 20 MG TABLET PO ONE (11:42)
[2019-05-10] MEDS ORDERED: CEPHALEXIN 500 MG CAPSULE PO ONE (11:44)
[2019-05-10] MEDS ORDERED: DIPH/PERTUSS(ACELL)/TETANUS VAC/PF 0.5 ML SYR (>=10YO) IM ONE (11:44)
--- NOTE | 2019-05-10 11:46 | ER Document Report ---
Doctor's Note Notes: 05/10/19 11:43 PHYSICAL EXAMINATION: GENERAL: Well-appearing and in no acute distress. HEAD: Atraumatic, normocephalic. EYES: sclera anicteric, conjunctiva are normal. ENT: nares patent. Moist mucous membranes. NECK: Normal range of motion, supple without lymphadenopathy LUNGS: CTAB and equal. No wheezes rales or rhonchi. HEART: Regular rate and rhythm without murmurs ABDOMEN: Soft, nontender, normal bowel sounds, no guarding. EXTREMITIES: Normal range of motion, 2+ lower extremity edema, 3+ pitting edema bilateral feet. No cyanosis. BACK: No midline tenderness, no step-off or deformity. No CVA tenderness NEUROLOGICAL: Cranial nerves grossly intact. Normal speech. Normal gait. PSYCH: Normal mood, normal affect. SKIN: Warm, Dry, normal turgor, with multiple excoriated areas to bilateral foot and ankle, left ankle with mild erythema surrounding open areas 05/10/19 11:44 Reviewed patient's vital signs notes and diagnostic evaluation. Mental health team members were concerned about patient's increased peripheral edema to the lower extremities. Patient does complain of some tenderness to the extremities bilaterally from the swelling. Patient with multiple excoriated open skin lesions to bilateral feet and ankles. 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 Left ankle with minimal erythema surrounding some of the excoriated areas. Excoriated areas. Patient denies any history of congestive heart failure. Breath sounds clear bilaterally. Will give patient a dose of diuretic medication to help with the swelling and start him on a short course of antibiotics for minimal erythema surrounding open wounds to the left ankle. Will update patient's tetanus immunization at this time as well. Patient very animated and pleasant, patient with tangential speech but is able to be redirected. 05/10/19 18:54 Patient has been accepted to a mental health facility and is awaiting transport at this time. RN states that transport states that they should likely be here tomorrow morning to pick patient up.
--- NOTE | 2019-05-10 12:11 | RADIOLOGY REPORT (SQ) ---
EXAM DESCRIPTION: CHEST 2 VIEWS COMPLETED DATE/TIME: 05/10/2019 11:59 am REASON FOR STUDY: peripheral edema COMPARISON: 05/09/2019 EXAM PARAMETERS: NUMBER OF VIEWS: two views TECHNIQUE: Digital Frontal and Lateral radiographic views of the chest acquired. RADIATION DOSE: NA LIMITATIONS: none FINDINGS: LUNGS AND PLEURA: Vague increase in markings throughout the lungs. MEDIASTINUM AND HILAR STRUCTURES: No masses or contour abnormalities. HEART AND VASCULAR STRUCTURES: Heart normal size. No evidence for failure. BONES: No acute findings. HARDWARE: None in the chest. OTHER: No other significant finding. IMPRESSION: Possible vascular congestion superimposed on COPD. TECHNICAL DOCUMENTATION: JOB ID: [id number] 2010 [employer]- All Rights Reserved Reading location - IP/workstation name: [email or web address]
[2019-05-10 14:06] LABS: ALBUMIN 3.3 g/dL (3.5-5.0); ALKALINE PHOSPHATASE 73 U/L (38-126); ANION GAP 5 (5-19); ASPARTATE AMINO TRANSFERASE 59 U/L (17-59); BILIRUBIN,DIRECT 0.2 mg/dL (0.0-0.4); BILIRUBIN,TOTAL 0.6 mg/dL (0.2-1.3); BLOOD UREA NITROGEN 17 mg/dL (7-20); CALCIUM 8.8 mg/dL (8.4-10.2); CARBON DIOXIDE 28 mmol/L (22-30); CHLORIDE 103 mmol/L (98-107); GLUCOSE 76 mg/dL (75-110); POTASSIUM 4.3 mmol/L (3.6-5.0); TOTAL PROTEIN 6.3 g/dL (6.3-8.2)
[2019-05-10] MEDS: CEPHALEXIN 500 MG CAPSULE PO SCH ×3 (14:20→22:54)
[2019-05-10] MEDS ORDERED: HALOPERIDOL LACTATE INJ 5 MG/1 ML VIAL IM ONE (23:01)
[2019-05-10] MEDS ORDERED: LORAZEPAM INJ 2 MG/1 ML VIAL IM ONE (23:05)
[2019-05-11] MEDS: HALOPERIDOL 5 MG TABLET PO SCH (09:28)
[2019-05-11] MEDS: BENZTROPINE MESYLATE 1 MG TABLET PO SCH (09:28)
[2019-05-11] MEDS: CEPHALEXIN 500 MG CAPSULE PO SCH (09:33)
[2019-05-11] MEDS ORDERED: FUROSEMIDE 20 MG TABLET PO SCH (10:00)
--- NOTE | 2019-05-11 10:32 | ER Document Report ---
Doctor's Note Notes: 05/11/19 09:37 PHYSICAL EXAMINATION: GENERAL: Well-appearing and in no acute distress. HEAD: Atraumatic, normocephalic. EYES: sclera anicteric, conjunctiva are normal. ENT: nares patent. Moist mucous membranes. NECK: Normal range of motion, supple LUNGS: Respirations unlabored HEART: 2+ radial pulse EXTREMITIES: Normal range of motion, 2+ edema bilateral feet. NEUROLOGICAL: Cranial nerves grossly intact. Normal speech. Normal gait. PSYCH: Elevated mood SKIN: Warm, Dry, normal turgor, no rashes or lesions noted Transport is here for patient. Patient is stable for transfer at this time.
[2019-05-11 11:06] VITALS: BP 156/93
--- NOTE | 2019-05-11 19:41 | PSYCHOLOGICAL NOTE ---
Psych Note - Psych Note Date seen by psych provider: 11/11/19 Time seen by psych provider: 08:30 Psych Note: Patient was informed of transfer to [place]. Patient was informed of transportation process. Patient reported no concerns or issues. Patient states his only request is for grape juice and stan crackers. Patient stated clinician was "sent by God" to tell him this news.
== END 2019-05-11 09:40 ==
LOC: ER 04:12
DX: F32.1 Major depressive disorder, single episode, moderate (principal); F25.9 Schizoaffective disorder, unspecified; R45.851 Suicidal ideations; R19.7 Diarrhea, unspecified; J43.9 Emphysema, unspecified; J84.10 Pulmonary fibrosis, unspecified; I10 Essential (primary) hypertension; R60.0 Localized edema; S90.512A Abrasion, left ankle, initial encounter; S90.511A Abrasion, right ankle, initial encounter; S90.812A Abrasion, left foot, initial encounter; S90.811A Abrasion, right foot, initial encounter; X58.XXXA Exposure to other specified factors, initial encounter; Z59.0 Homelessness; Z75.1 Person awaiting admission to adequate facility elsewhere
CPT/HCPCS: 93005; 99285; 96372; 90471; 36415; 80307 ×4; 85025; 80053; 81001; 83880; 71046; 93010; A9270 ×4; J1200; J1630; J2060

== ENCOUNTER 2019-07-16 21:11 | Emergency (ER) | payer MEDICARE ==
[2019-07-16] MEDS ORDERED: HYDROXYZINE HCL INJ 50 MG/1 ML VIAL IM ONE (22:30)
--- NOTE | 2019-07-16 22:32 | ER Document Report ---
ED General - General Stated Complaint: BLOOD PRESSURE ISSUES Time Seen by Provider: 07/16/19 22:07 Mode of Arrival: Ambulatory Information source: Patient Notes: 64-year-old man presents to the emergency department with a history of anxiety and poor compliance with medications. Patient states that he is feeling guilty about his judgment on others. He apparently been treated at [facility] psychiatric services. He had been discharged home on unknown number of medications. The patient states that he discontinued the medications 3 days ago and since that time his symptoms have exacerbated. He is showing signs of hyper-religiosity and fear that he has been and judgment. He denies homicidal or suicidal ideation. TRAVEL OUTSIDE OF THE [place] IN LAST 30 DAYS: No - Related Data Allergies/Adverse Reactions: No Known Allergies Allergy (Verified 05/05/19 11:02) Past Medical History - Social History Smoking Status: Unknown if Ever Smoked Family History: Hypertension - Negative for premature coronary artery disease or sudden cardiac in the immediate family members - Past Medical History Cardiac Medical History: Reports: Hx Hypertension Pulmonary Medical History: Denies: Hx COPD Neurological Medical History: Denies: Hx Seizures Renal/ Medical History: Reports: Hx Kidney Stones. Denies: Hx Peritoneal Dialysis Psychiatric Medical History: Reports: Hx Bipolar Disorder, Hx Depression, Hx Schizoaffective Disorder, Hx Schizophrenia Past Surgical History: Reports: Hx Cholecystectomy, Hx Kidney (Renal Surgery) - Immunizations Hx Diphtheria, Pertussis, Tetanus Vaccination: No Review of Systems - Review of Systems Notes: Constitutional: Negative for fever. HENT: Negative for sore throat. Eyes: Negative for visual changes. Cardiovascular: Negative for chest pain. Respiratory: Negative for shortness of breath. Gastrointestinal: Negative for abdominal pain, vomiting or diarrhea. Genitourinary: Negative for dysuria. Musculoskeletal: Negative for back pain. Skin: Negative for rash. Neurological: Negative for headaches, weakness or numbness. Psychiatric: No hallucinations, denies suicidal or homicidal ideation 10 point ROS negative except as marked above and in HPI. Physical Exam - Vital signs Vitals: Temp Pulse Resp BP Pulse Ox 98.2 F 74 16 153/84 H 98 07/16/19 21:25 07/16/19 21:25 07/16/19 21:25 07/16/19 21:25 07/16/19 21:25 - Notes Notes: PHYSICAL EXAMINATION: Physical Exam: General: Well-nourished well-developed 64-year-old man in no acute distress HEENT: NC/AT, pupils equal round and reactive to light, MM moist,nares clear, oropharynx clear, airway patent Neck: supple, no adenopathy, no masses. Good range of motion Lungs: clear, no wheezing, no rales no rhonchi CVS: Regular rate and rhythm no murmur gallop or rub Abdomen: Soft, active, nontender, no masses, no hepatosplenomegaly Ext: No edema, clubbing or cyanosis. Neuro: Alert and responsive, moving all 4 extremities on command, cranial nerves intact, no focal findings Skin: Intact no open lesions, no rash PSYCH: Anxious, speech pressured, flight of ideals, hyper spiritism and HIS FEAR OF JUDGMENT. Denies homicidal or suicidal ideation. Course - Re-evaluation Re-evalutation: 07/17/19 01:04 Patient is presently off his usual medications and seems hypomanic with hy perreligiosity and very anxious. He will be held for a psychiatric consult. - Vital Signs Vital signs: Temp Pulse Resp BP Pulse Ox 98.2 F 74 16 153/84 H 98 07/16/19 23:06 07/16/19 21:25 07/16/19 21:25 07/16/19 21:25 07/16/19 21:25 - Laboratory Result Diagrams: 07/16/19 22:50 07/16/19 22:50 Laboratory results interpreted by me: 07/16/19 07/16/19 07/16/19 22:50 22:50 22:50 WBC 11.1 H RDW 14.9 H Lymph % (Auto) 9.4 L Absolute Neuts (auto) 9.2 H Seg Neutrophils % 83.2 H Sodium 132.3 L Carbon Dioxide 21 L Glucose 117 H Urine Blood SMALL H Discharge - Discharge Clinical Impression: Hypomanic episode, Paranoid behavior, Anxiety Condition: Good Disposition: HOME, SELF-CARE Instructions: Anxiety ([facility])
[2019-07-16 23:12] LABS: ABSOLUTE EOSINOPHILS # (AUTO) 0.1 10^3/uL (0.0-0.6); ABSOLUTE MONOCYTES (AUTO) 0.7 10^3/uL (0.1-1.4); ABSOLUTE NEUT (AUTO) 9.2 10^3/uL (1.7-8.2); BASOPHILS % (AUTO) 0.3 % (0-2); HEMATOCRIT 41.3 % (37.9-51.0); HEMOGLOBIN 14.5 g/dL (13.5-17.0); LYMPHOCYTES % (AUTO) 9.4 % (13-45); MEAN CORPUSCULAR HEMOGLOBIN 32.2 pg (27.0-33.4); MEAN CORPUSCULAR VOLUME 92 fl (80-97); MONOCYTES % (AUTO) 6.1 % (3-13); PLATELET COUNT 178 10^3/uL (150-450); RED BLOOD COUNT 4.49 10^6/uL (4.35-5.55); RED CELL DISTRIBUTION WIDTH 14.9 % (11.5-14.0); SEGMENTED NEUTROPHILS % (AUTO) 83.2 % (42-78); TOTAL CELLS COUNTED % (AUTO) 100 %; WHITE BLOOD COUNT 11.1 10^3/uL (4.0-10.5)
[2019-07-16 23:18] LABS: APPEARANCE,URINE SLIGHTLY-CLOUDY; BILIRUBIN,URINE NEGATIVE (NEGATIVE); COLOR,URINE STRAW; GLUCOSE, URINE NEGATIVE (NEGATIVE); KETONES,URINE NEGATIVE (NEGATIVE); PROTEIN,URINE NEGATIVE (NEGATIVE); URINE SPECIFIC GRAVITY 1.011; UROBILINOGEN,URINE NEGATIVE mg/dL (<2.0)
[2019-07-16 23:26] LABS: ALBUMIN 4.3 g/dL (3.5-5.0); ALKALINE PHOSPHATASE 92 U/L (38-126); ANION GAP 11 (5-19); ASPARTATE AMINO TRANSFERASE 31 U/L (17-59); BILIRUBIN,TOTAL 0.5 mg/dL (0.2-1.3); BLOOD UREA NITROGEN 15 mg/dL (7-20); CALCIUM 9.2 mg/dL (8.4-10.2); CARBON DIOXIDE 21 mmol/L (22-30); CHLORIDE 100 mmol/L (98-107); GLUCOSE 117 mg/dL (75-110); POTASSIUM 3.7 mmol/L (3.6-5.0); TOTAL PROTEIN 7.7 g/dL (6.3-8.2)
[2019-07-16 23:32] LABS: URINE AMPHETAMINES SCREEN NEGATIVE; URINE BARBITURATES SCREEN NEGATIVE; URINE BENZODIAZEPINES SCREEN NEGATIVE; URINE COCAINE SCREEN NEGATIVE; URINE MARIJUANA (THC) SCREEN NEGATIVE; URINE METHADONE SCREEN NEGATIVE; URINE PHENCYCLIDINE SCREEN NEGATIVE
[2019-07-16] MEDS ORDERED: LORAZEPAM INJ 2 MG/1 ML VIAL IM ONE (23:36)
--- NOTE | 2019-07-17 14:26 | PSYCHOLOGICAL NOTE ---
Psych Note - Psych Note Date seen by psych provider: 07/17/19 Time seen by psych provider: 13:30 Psych Note: Reason for Consult: anxiety Upon entering patient's room, patient smiles and states he remembers clinician. Patient reports he came to [facility] ED after feeling very anxious and overwhelmed. He denies continued concerns stating that he is ready to be discharged. He discloses he currently lives in a hotel however states he is receiving assistance in obtaining a more permanent housing solution. He denies any thoughts of wanting to harm himself or others. He denies any further concerns at this time. Patient is alert and orientated to person, place, time and circumstance. Mood is euthymic with smiling affect. Patient denies suicidal/homicidal ideations, intent, plan, or means. Delusional are absent and behaviour is congruent with an intact reality based presentation. Thought processes were organized and linear. Conversational speech was with in normal rate tone and prosody for this patient. Intellectual abilities were estimated within average range. Attention and focus were fair. Insight, judgment, and impulse control were fair. Patient appeared physically healthier; he is well groomed and has noted weight gain since last evaluation. 295.70 (F25.0) Schizoaffective Disorder, Bipolar Type by history 799.59 (R41.9) Unspecified Neurocognitive Disorder Patient's presenting symptoms are similar to that of a neurocognitive disorder and cause clinically significant distress in all domains of his life At this time and in this setting (ER) there is not enough information to make a more specific diagnosis (head CT suggestive of age related involutional changes) Impression/ Plan: Patient is cleared from acute psychiatric services. This patient is well known to this clinician and department. Patient is considered to be at his baseline functioning, and denies wanting to harm anyone or himself. Patient has been refusing to engage with outpatient mental health services; he previously had services with [facility]. It is noted the patient is presenting significantly healthier during this evaluation compared to his previous evaluation (05/10/2019) and his mood is currently euthymic with congruent affect as evidenced by the patient smiling and engaging with clinician. Patient reports he currently lives in a hotel and states he is ready to return. He states he has no further concerns and states he is ready for discharge. Dr. Null was consulted on the care and management of this patient; attending physician is in agreement with recommendations and disposition.
[2019-07-17 15:58] VITALS: BP 133/71
--- NOTE | 2019-07-17 16:11 | ER Document Report ---
Doctor's Note Notes: 07/17/19 16:10 64-year-old man with a history of bipolar disorder came in with a hypomanic episode. He was medically cleared initially by Dr. Lopez. Subsequently has been seen by psychiatry. He is now felt to be stable from their standpoint and able to be discharged. Outpatient mental health referral has been arranged.
--- NOTE | 2019-07-18 16:20 | ER Document Report ---
ED General - General Chief Complaint: Anxiety Stated Complaint: BLOOD PRESSURE ISSUES Time Seen by Provider: 07/16/19 22:07 Mode of Arrival: Ambulatory TRAVEL OUTSIDE OF THE [place] IN LAST 30 DAYS: No - HPI Notes: Chief complaint: Anxiety HPI: 64-year-old male with history of schizoaffective disorder bipolar type currently noncompliant with medications has presented today complaining of anxiety and shaking and he reports that he is recently lost his home. He was discharged from this emergency department 24 hours ago after coming in for similar complaints. He is back now stating that he is simply unable to cope. He was seen earlier today by 1 of the midlevel providers and left AMA at that time but is now come back and saying that he cannot make it without assistance. He currently denies any suicidal or homicidal ideation. He denies auditory or visual hallucinations. His principal complaint is shakiness and anxiety. He denies any abuse of alcohol or drugs. I reviewed the tox screens on his last 2 visits and they have been consistently negative. - Related Data Allergies/Adverse Reactions: No Known Allergies Allergy (Verified 07/18/19 14:17) Past Medical History - General Information source: Patient, [facility] Records - Social History Smoking Status: Never Smoker Chew tobacco use (# tins/day): No Frequency of alcohol use: None Drug Abuse: None Family History: Hypertension - Negative for premature coronary artery disease or sudden cardiac in the immediate family members Patient has homicidal ideation: No - Past Medical History Cardiac Medical History: Reports: Hx Hypertension Pulmonary Medical History: Denies: Hx COPD Neurological Medical History: Denies: Hx Seizures Renal/ Medical History: Reports: Hx Kidney Stones. Denies: Hx Peritoneal Dialysis Psychiatric Medical History: Reports: Hx Bipolar Disorder, Hx Depression, Hx Sc hizoaffective Disorder, Hx Schizophrenia Past Surgical History: Reports: Hx Cholecystectomy, Hx Kidney (Renal Surgery) - Immunizations Hx Diphtheria, Pertussis, Tetanus Vaccination: No Review of Systems - Review of Systems Notes: Constitutional: Negative for fever. HENT: Negative for sore throat. Eyes: Negative for visual changes. Cardiovascular: Negative for chest pain. Respiratory: Negative for shortness of breath. Gastrointestinal: Negative for abdominal pain, vomiting or diarrhea. Genitourinary: Negative for dysuria. Musculoskeletal: Negative for back pain. Skin: Negative for rash. Neurological: Negative for headaches, focal weakness or numbness. 10 point ROS negative except as marked above and in HPI. Physical Exam - Vital signs Vitals: Temp Pulse Resp BP Pulse Ox 98.2 F 74 16 153/84 H 98 07/16/19 21:25 07/16/19 21:25 07/16/19 21:25 07/16/19 21:25 07/16/19 21:25 - Notes Notes: GENERAL: Quite. SKIN: Good turgor no rashes. HEAD: Normocephalic atraumatic. EYES: PERRLA. EOMI. Conjunctivae and sclerae clear. EARS: CANALS AND TMS CLEAR. NOSE: CLEAR. MOUTH: Moist mucosa. Good dentition. No stridor or edema. No drooling. NECK: Supple. No masses or thyromegaly. No adenopathy. Carotids 2+ without bruits. No JVD. BACK: Symmetrical without tenderness. CHEST: Respirations unlabored. Breath sounds clear and symmetrical. HEART: Regular rhythm. No murmur gallop or rub. ABDOMEN: Soft nontender without masses, organomegaly or rebound. Bowel sounds normally active. No bruits. GENITALIA: Deferred. EXTREMITIES: No edema. No calf tenderness. Cap refill less than 1.5 seconds. Dorsalis pedis and posterior tibial pulses 3+ and symmetrical. NEUROLOGICAL: GCS 15. Alert and oriented x3. Normal gait. Fluent speech. Cranial nerves II through XII intact. Sensorimotor and cerebellar normal. Normal tone. PSYCHIATRIC: Appropriate affect. Course - Vital Signs Vital signs: Temp Pulse Resp BP Pulse Ox 98.0 F 84 18 133/71 H 100 07/17/19 15:55 07/17/19 15:55 07/17/19 15:55 07/17/19 15:55 07/17/19 15:55 - Laboratory Result Diagrams: 07/16/19 22:50 07/16/19 22:50 Laboratory results interpreted by me: 07/16/19 07/16/19 07/16/19 22:50 22:50 22:50 WBC 11.1 H RDW 14.9 H Lymph % (Auto) 9.4 L Absolute Neuts (auto) 9.2 H Seg Neutrophils % 83.2 H Sodium 132.3 L Carbon Dioxide 21 L Glucose 117 H Urine Blood SMALL H Discharge - Discharge Clinical Impression: Hypomanic episode, Paranoid behavior, Anxiety Condition: Good Disposition: HOME, SELF-CARE Instructions: Anxiety ([facility]) Additional Instructions: You have been evaluated by both medical and behavioral health teams for Anxiety and have been deemed appropriate for discharge. While in the emergency department you received the following services: Medical screening and assessment, nursing services, dietary services, pharmacological services, one-o n-one counseling and/or psychotherapy, environmental services, and continuous observation by a patient health and safety inspector. You are highly encourged to engage with [facility] mental health services and have been provided the local resource of [facility] providers, including mobile crisis contact information. Anxiety The physician feels that some of your health problems are being caused by anxiety. Anxiety affects your health in many ways. Anxiety alone can cause palpitations, sweats, chest pains, abdominal pains, shortness of breath, and headaches. It contributes to ulcer disease, high blood pressure, irritable bowel syndrome, and has been shown to cause flare-ups of many other diseases. Anxiety is not a simple disorder to treat. If the anxiety is due to recent life stresses, you may simply need time to "work through" the changes. If the anxiety is due to an underlying unhappiness with yourself or due to psychiatric disturbance, professional help will be needed. Your physician can refer you for further help if needed. Anti-anxiety medication is occasionally given if the stress is acute or if you are having trouble sleeping. Chronic or frequent use of these medications is not a good idea because the body becomes reliant on it, preventing you from dealing with life's normal stresses. AT ANY TIME, IF YOUR SYMPTOMS CHANGE SIGNIFICANTLY OR WORSEN OR YOU DEVELOP NEW SYMPTOMS, RETURN TO THE EMERGENCY DEPARTMENT IMMEDIATELY FOR RE-EVALUATION.
== END 2019-07-17 16:16 | disposition home or self-care (01) ==
LOC: ER 21:11
DX: F41.9 Anxiety disorder, unspecified (principal); F30.8 Other manic episodes; I10 Essential (primary) hypertension
CPT/HCPCS: 99284; 96372; 36415; 85025; 80053; 81001; 80307; J3410; J2060

== ENCOUNTER 2019-07-18 11:31 | Emergency (ER) | payer MEDICARE ==
[2019-07-18 12:10] LABS: ABSOLUTE EOSINOPHILS # (AUTO) 0.2 10^3/uL (0.0-0.6); ABSOLUTE LYMPHOCYTES (AUTO) 1.2 10^3/uL (0.5-4.7); ABSOLUTE MONOCYTES (AUTO) 0.6 10^3/uL (0.1-1.4); ABSOLUTE NEUT (AUTO) 5.6 10^3/uL (1.7-8.2); BASOPHILS % (AUTO) 0.4 % (0-2); EOSINOPHILS % (AUTO) 2.9 % (0-6); HEMATOCRIT 40.4 % (37.9-51.0); HEMOGLOBIN 14.2 g/dL (13.5-17.0); LYMPHOCYTES % (AUTO) 16.2 % (13-45); MEAN CORPUSCULAR HEMOGLOBIN 32.3 pg (27.0-33.4); MEAN CORPUSCULAR HGB CONC 35.1 g/dL (32.0-36.0); MEAN CORPUSCULAR VOLUME 92 fl (80-97); MONOCYTES % (AUTO) 8.1 % (3-13); PLATELET COUNT 189 10^3/uL (150-450); RED BLOOD COUNT 4.38 10^6/uL (4.35-5.55); SEGMENTED NEUTROPHILS % (AUTO) 72.4 % (42-78); TOTAL CELLS COUNTED % (AUTO) 100 %; WHITE BLOOD COUNT 7.7 10^3/uL (4.0-10.5)
[2019-07-18] MEDS ORDERED: ASPIRIN 81 MG TABLET, CHEWABLE PO ONE (12:15)
--- NOTE | 2019-07-18 12:19 | ER Document Report ---
ED Cardiac - General Chief Complaint: Anxiety Stated Complaint: ANXIETY/SHORTNESS OF BREATH Time Seen by Provider: 07/18/19 11:39 Notes: Patient is a 64-year-old male who presents emergency department with a chief complaint of shortness of breath, chest pain, and possible anxiety. Patient states that his symptoms started about an hour ago. Describes his chest pain as an aching pain in the left side of his chest. Patient has a history of hypertension. States that he is supposed to be on medication, but is not currently on his medication at this time. Nurse reports that the patient is homeless and lives in a hotel. He was watching TV at the time of his chest pain onset. This was around 11:00 this morning. States he also feels anxious. Denies suicidal or homicidal ideation. TRAVEL OUTSIDE OF THE [place] IN LAST 30 DAYS: No - Related Data Allergies/Adverse Reactions: No Known Allergies Allergy (Verified 07/18/19 14:17) Home Medications: Per patient recall: "just for hypertension" Past Medical History - Social History Smoking Status: Never Smoker Frequency of alcohol use: None Drug Abuse: None Family History: Hypertension - Negative for premature coronary artery disease or sudden cardiac in the immediate family members Patient has homicidal ideation: No - Past Medical History Cardiac Medical History: Reports: Hx Hypertension Pulmonary Medical History: Denies: Hx COPD Neurological Medical History: Denies: Hx Seizures Renal/ Medical History: Reports: Hx Kidney Stones. Denies: Hx Peritoneal Dialysis Psychiatric Medical History: Reports: Hx Bipolar Disorder, Hx Depression, Hx Schizoaffective Disorder Denies: Hx Schizophrenia Past Surgical History: Reports: Hx Cholecystectomy, Hx Kidney (Renal Surgery) - Immunizations Hx Diphtheria, Pertussis, Tetanus Vaccination: No Review of Systems - Review of Systems Notes: REVIEW OF SYSTEMS: CONSTITUTIONAL : Denies recent illness. Denies recent unintentional weight loss. Denies fever, chills, or sweats. EENT: Denies eye, ear, throat, or mouth pain, discharge, or symptoms. Denies nasal or sinus congestion. CARDIOVASCULAR: See HPI. RESPIRATORY: Denies shortness of breath, cough, congestion, difficulty breathing, or wheezing. GASTROINTESTINAL: Denies nausea, vomiting, and diarrhea. Denies abdominal pain. Denies constipation. GENITOURINARY: Denies difficulty urinating, burning, blood in urine, urgency or frequency. MUSCULOSKELETAL: Denies neck and back pain. Denies joint pain or swelling. SKIN: Denies rash, itchiness, or lesions HEMATOLOGIC : Denies easy bruising or bleeding. LYMPHATIC: Denies swollen, painful, enlarged glands. NEUROLOGICAL: Denies no numbness or tingling denies weakness. Denies headache. Denies altered mental status. Denies alteration in speech. PSYCHIATRIC: See HPI. All other systems reviewed and negative. Physical Exam - Vital signs Vitals: Temp 98.7 F 07/18/19 11:33 - Notes Notes: PHYSICAL EXAMINATION: GENERAL: Appears well, healthy, well-nourished, no acute distress. HEAD: Normocephalic, atraumatic. EYES: PERRL, conjunctiva normal, all extraocular movements intact, sclera nonicteric ENT: Moist mucous membranes. NECK: Supple, no noticeable swelling, redness, rash. Normal range of motion. LUNGS: Equal breath sounds bilaterally and clear to auscultation. No wheezes rales or rhonchi. CARDIOVASCULAR: S1-S2, regular rate, regular rhythm. Radial pulses 2+, normal. Tenderness to left anterior chest upon palpation. ABDOMEN: Normoactive bowel sounds. Soft, nontender, no guarding, no rebound tenderness, and no masses palpated. EXTREMITIES: Normal strength and range of motion, no pitting or edema. No cyanosis. NEUROLOGICAL: Moves all extremities upon command. Strength 5/5 in all extremities. PSYCH: Normal mood, normal affect. SKIN: Warm, dry. No rash, lesions, ulcerations noted. Normal skin turgor. Course - Re-evaluation Re-evalutation: 07/18/19 14:10 I was just notified that the patient had left AMA. I was in another area of the emergency department and the nurse could not find me. I did not get a chance to speak to the patient about staying. I did not get a chance to discuss risks and benefits of leaving AGAINST MEDICAL ADVICE. The nurse had him sign the A paperwork. I did not get an opportunity to give him any discharge instructions. Nurse talked to the patient and try to convince him to stay, as he was asking for help and placement in a facility. During my assessment, he was alert and oriented to person, place, and time. He denied any suicidal or homicidal ideation. Labs show the patient has a CK of 200. His CO2 is also 20. BNP was 290. Urinalysis still has not resulted at this time. Unfortunately since the patient left AMA without me talking to him, I am unable to help him with finding placement at this time. I suggest that but the patient does come back to the emergency department that he have a mental health evaluation. - Vital Signs Vital signs: Temp Pulse Resp BP Pulse Ox 98.7 F 17 168/94 H 100 07/18/19 11:33 07/18/19 13:03 07/18/19 13:04 07/18/19 13:03 - Laboratory Result Diagrams: 07/18/19 11:40 07/18/19 11:40 Laboratory results interpreted by me: 07/18/19 07/18/19 07/18/19 11:40 11:40 11:40 RDW 15.0 H Sodium 136.5 L Carbon Dioxide 20 L Creatine Kinase 200 H NT-Pro-B Natriuret Pep 290 H Discharge - Discharge Clinical Impression: Homeless, Anxiety Chest pain Qualifiers: Chest pain type: unspecified Qualified Code(s): R07.9 - Chest pain, unspecified Condition: Stable Disposition: AGAINST MEDICAL ADVICE Instructions: Anxiety (COUNTS INCLUDE 234 BEDS AT THE [facility])
--- NOTE | 2019-07-18 12:21 | RADIOLOGY REPORT (SQ) ---
EXAM DESCRIPTION: CHEST SINGLE VIEW IMAGES COMPLETED DATE/TIME: 07/18/2019 11:01 am REASON FOR STUDY: bed 8 short of breath COMPARISON: Chest radiograph 05/06/2019 EXAM PARAMETERS: NUMBER OF VIEWS: One view. TECHNIQUE: Single frontal radiographic view of the chest acquired. RADIATION DOSE: NA LIMITATIONS: None. FINDINGS: LUNGS AND PLEURA: Lungs are hyperinflated. Increased interstitial prominence. No focal c onsolidation or pleural effusion. No pneumothorax. MEDIASTINUM AND HILAR STRUCTURES: No masses. Contour normal. HEART AND VASCULAR STRUCTURES: Mild cardiomegaly. Normal vasculature. BONES: No acute findings. HARDWARE: None in the chest. OTHER: No other significant finding. IMPRESSION: Hyperinflated lungs and mild increased interstitial prominence probably reflecting under lying pulmonary fibrosis/ emphysema. TECHNICAL DOCUMENTATION: JOB ID: [id number] 2010 [employer]- All Rights Reserved Reading location - IP/workstation name: [email or web address]
[2019-07-18 12:28] LABS: ALBUMIN 4.2 g/dL (3.5-5.0); ALKALINE PHOSPHATASE 84 U/L (38-126); ANION GAP 11 (5-19); ASPARTATE AMINO TRANSFERASE 25 U/L (17-59); BILIRUBIN,TOTAL 0.6 mg/dL (0.2-1.3); BLOOD UREA NITROGEN 18 mg/dL (7-20); CALCIUM 9.3 mg/dL (8.4-10.2); CARBON DIOXIDE 20 mmol/L (22-30); CHLORIDE 106 mmol/L (98-107); CREATINE KINASE 200 U/L (55-170); GLUCOSE 96 mg/dL (75-110); TOTAL PROTEIN 7.5 g/dL (6.3-8.2)
[2019-07-18 12:40] LABS: CREATINE KINASE MB 0.86 ng/mL (<4.55); NT PRO BNP 290 pg/mL (<125)
[2019-07-18 12:41] LABS: TROPONIN I < 0.012 ng/mL
[2019-07-18 13:52] VITALS: BP 168/94
[2019-07-18 14:21] LABS: APPEARANCE,URINE CLEAR; BILIRUBIN,URINE NEGATIVE (NEGATIVE); COLOR,URINE YELLOW; GLUCOSE, URINE NEGATIVE (NEGATIVE); KETONES,URINE NEGATIVE (NEGATIVE); LEUKOCYTE ESTERASE,URINE NEGATIVE (NEGATIVE); NITRITE,URINE NEGATIVE (NEGATIVE); PROTEIN,URINE NEGATIVE (NEGATIVE); URINE SPECIFIC GRAVITY 1.015; UROBILINOGEN,URINE NEGATIVE mg/dL (<2.0)
--- NOTE | 2019-07-19 10:50 | EKG REPORT ---
SEVERITY:- BORDERLINE ECG - SINUS RHYTHM BORDERLINE T WAVE ABNORMALITIES : Confirmed by: Vikash Javier 19-Jul-2019 10:49:27
== END 2019-07-18 14:01 | disposition left against medical advice (07) ==
LOC: ER 11:31
DX: R07.9 Chest pain, unspecified (principal); F41.9 Anxiety disorder, unspecified; R06.02 Shortness of breath; I10 Essential (primary) hypertension; Z79.899 Other long term (current) drug therapy; Z59.0 Homelessness
CPT/HCPCS: 93005; 99284; 36415; 82553; 82550; 85025; 80053; 81001; 84484; 83880; 71045; 93010; A9270

== ENCOUNTER 2019-07-18 14:12 | Emergency (ER) | payer MEDICARE ==
[2019-07-18 15:50] LABS: ABSOLUTE EOSINOPHILS # (AUTO) 0.1 10^3/uL (0.0-0.6); ABSOLUTE MONOCYTES (AUTO) 0.6 10^3/uL (0.1-1.4); ABSOLUTE NEUT (AUTO) 7.2 10^3/uL (1.7-8.2); BASOPHILS % (AUTO) 0.3 % (0-2); EOSINOPHILS % (AUTO) 1.2 % (0-6); HEMATOCRIT 41.4 % (37.9-51.0); HEMOGLOBIN 14.6 g/dL (13.5-17.0); LYMPHOCYTES % (AUTO) 11.3 % (13-45); MEAN CORPUSCULAR HEMOGLOBIN 32.6 pg (27.0-33.4); MEAN CORPUSCULAR HGB CONC 35.2 g/dL (32.0-36.0); MEAN CORPUSCULAR VOLUME 93 fl (80-97); PLATELET COUNT 190 10^3/uL (150-450); RED BLOOD COUNT 4.47 10^6/uL (4.35-5.55); RED CELL DISTRIBUTION WIDTH 14.9 % (11.5-14.0); SEGMENTED NEUTROPHILS % (AUTO) 80.2 % (42-78); TOTAL CELLS COUNTED % (AUTO) 100 %
[2019-07-18 16:10] LABS: APPEARANCE,URINE CLEAR; BILIRUBIN,URINE NEGATIVE (NEGATIVE); COLOR,URINE YELLOW; GLUCOSE, URINE NEGATIVE (NEGATIVE); KETONES,URINE NEGATIVE (NEGATIVE); LEUKOCYTE ESTERASE,URINE NEGATIVE (NEGATIVE); NITRITE,URINE NEGATIVE (NEGATIVE); PROTEIN,URINE NEGATIVE (NEGATIVE); URINE SPECIFIC GRAVITY 1.017; UROBILINOGEN,URINE NEGATIVE mg/dL (<2.0)
[2019-07-18 16:13] LABS: ALBUMIN 4.4 g/dL (3.5-5.0); ALKALINE PHOSPHATASE 88 U/L (38-126); ANION GAP 10 (5-19); ASPARTATE AMINO TRANSFERASE 26 U/L (17-59); BILIRUBIN,TOTAL 0.5 mg/dL (0.2-1.3); BLOOD UREA NITROGEN 16 mg/dL (7-20); CALCIUM 9.5 mg/dL (8.4-10.2); CARBON DIOXIDE 20 mmol/L (22-30); CHLORIDE 105 mmol/L (98-107); GLUCOSE 104 mg/dL (75-110); POTASSIUM 3.7 mmol/L (3.6-5.0); SALICYLATE 1.5 mg/dL (2.0-20.0); TOTAL PROTEIN 7.8 g/dL (6.3-8.2)
[2019-07-18 16:14] LABS: ACETAMINOPHEN < 10 ug/mL (10-30); ALCOHOL < 10 mg/dL (NONE DETECTED)
[2019-07-18] MEDS ORDERED: LORAZEPAM INJ 2 MG/1 ML VIAL IM ONE (16:22)
[2019-07-18 16:23] LABS: URINE AMPHETAMINES SCREEN NEGATIVE; URINE BARBITURATES SCREEN NEGATIVE; URINE BENZODIAZEPINES SCREEN NEGATIVE; URINE COCAINE SCREEN NEGATIVE; URINE MARIJUANA (THC) SCREEN NEGATIVE; URINE METHADONE SCREEN NEGATIVE; URINE PHENCYCLIDINE SCREEN NEGATIVE
--- NOTE | 2019-07-18 16:26 | ER Document Report ---
ED General - General Chief Complaint: Psych Problem Stated Complaint: SHAKY,WEAKNESS Time Seen by Provider: 07/18/19 14:17 TRAVEL OUTSIDE OF THE [place] IN LAST 30 DAYS: No - HPI Notes: Chief complaint: Shakiness and weakness History of present illness: 64-year-old male with history of schizoaffective disorder bipolar type currently homeless now complaining of shakiness and generalized weakness as well as intermittent shortness of breath. Patient was seen earlier this week in this department and was discharged at that time for outpatient follow-up. He is back today saying that he "just cannot make it". He was evaluated by 1 of the midlevel providers earlier in the day and signed himself out AMA at that time. His medical work-up during that visit showed no alcohol or drugs in his system and his EKG, chest x-ray, CBC, chemistry profile and troponin were all unremarkable. He currently denies any suicidal/homicidal ideation. He does not endorse any auditory or visual hallucinations. He says he feels that he simply cannot cope and is constantly shaking and intermittently gets anxious and feels short of breath. - Related Data Allergies/Adverse Reactions: No Known Allergies Allergy (Verified 07/18/19 14:17) Past Medical History - General Information source: Patient, [facility] Records - Social History Smoking Status: Never Smoker Chew tobacco use (# tins/day): No Frequency of alcohol use: None Drug Abuse: None Family History: Hypertension - Negative for premature coronary artery disease or sudden cardiac in the immediate family members Patient has homicidal ideation: No - Past Medical History Cardiac Medical History: Reports: Hx Hypertension Pulmonary Medical History: Denies: Hx COPD Neurological Medical History: Denies: Hx Seizures Renal/ Medical History: Reports: Hx Kidney Stones. Denies: Hx Peritoneal Dialysis Psychiatric Medical History: Reports: Hx Bipolar Disorder, Hx Depression, Hx Schizoaffective Disorder Denies: Hx Schizophrenia Past Surgical History: Reports: Hx Cholecystectomy, Hx Kidney (Renal Surgery) - Immunizations Hx Diphtheria, Pertussis, Tetanus Vaccination: No Review of Systems - Review of Systems Notes: Constitutional: Negative for fever. HENT: Negative for sore throat. Eyes: Negative for visual changes. Cardiovascular: Negative for chest pain. Respiratory: As per HPI. Gastrointestinal: Negative for abdominal pain, vomiting or diarrhea. Genitourinary: Negative for dysuria. Musculoskeletal: Negative for back pain. Skin: Negative for rash. Neurological: Negative for headaches, focal weakness or numbness. 10 point ROS negative except as marked above and in HPI. Physical Exam - Vital signs Vitals: Temp Pulse Resp BP Pulse Ox 97.7 F 75 24 H 188/91 H 99 07/18/19 14:16 07/18/19 14:16 07/18/19 14:16 07/18/19 14:16 07/18/19 14:16 - Notes Notes: GENERAL: Quiet elderly male who is visibly shaking and is relatively withdrawn. SKIN: Good turgor no rashes. HEAD: Normocephalic atraumatic. EYES: PERRLA. EOMI. Conjunctivae and sclerae clear. EARS: CANALS AND TMS CLEAR. NOSE: CLEAR. MOUTH: Moist mucosa. Good dentition. No stridor or edema. No drooling. NECK: Supple. No masses or thyromegaly. No adenopathy. Carotids 2+ without bruits. No JVD. BACK: Symmetrical without tenderness. CHEST: Respirations unlabored. Breath sounds clear and symmetrical. HEART: Regular rhythm. No murmur gallop or rub. ABDOMEN: Soft nontender without masses, organomegaly or rebound. Bowel sounds normally active. No bruits. GENITALIA: Deferred. EXTREMITIES: No edema. No calf tenderness. Cap refill less than 1.5 seconds. Dorsalis pedis and posterior tibial pulses 3+ and symmetrical. NEUROLOGICAL: Mild generalized tremor. GCS 15. Alert and oriented x3. Normal gait. Fluent speech. Cranial nerves II through XII intact. Sensorimotor and cerebellar normal. Normal tone. PSYCHIATRIC: Very flat affect. Course - Re-evaluation Re-evalutation: 07/18/19 16:28 I have requested consultation with the behavioral medicine service. I have given him a dose of IM Ativan at this time. - Vital Signs Vital signs: Temp Pulse Resp BP Pulse Ox 98.2 F 100 22 H 174/92 H 100 07/18/19 14:21 07/18/19 14:21 07/18/19 14:21 07/18/19 14:21 07/18/19 14:21 - Laboratory Result Diagrams: 07/18/19 15:30 07/18/19 15:30 Laboratory results interpreted by me: 07/18/19 07/18/1920 15:30 15:30 15:30 RDW 14.9 H Lymph % (Auto) 11.3 L Seg Neutrophils % 80.2 H Sodium 135.0 L Carbon Dioxide 20 L Urine Blood SMALL H Salicylates 1.5 L Acetaminophen < 10 L - EKG Interpretation by Me Additional EKG results interpreted by me: 07/18/19 16:27 Twelve-lead EKG from 1611 hrs. is reviewed contemporaneously by me demonstrating normal sinus rhythm with a rate of 73 and a QRS axis of +47 degrees. Intervals are normal. There are no acute ST/T wave changes. Discharge - Discharge Clinical Impression: Schizoaffective disorder, bipolar type Disposition: PSYCH HOSP/UNIT
--- NOTE | 2019-07-18 16:30 | PSYCHOLOGICAL NOTE ---
Psych Note - Psych Note Date seen by psych provider: 07/18/19 Time seen by psych provider: 15:30 Psych Note: Reason for Consult: Anxiety Patient has difficulties engaging with clinician. Clinician notes this patient is well known to clinician and department. He was just seen last night. He reports he is unable to continue staying at the hotel he was at and the friend he had there is unable to help him. He states he does not know what to do. Patient is visibly shaking and having difficulty speaking. When asked if he would like mental health assistance he stated "yes." Patient has been provided medication from medical team to assist the patient in calming; he will be re- evaluated once he able to engage more effectively. History: Patient has a diagnosis of schizoaffective disorder; bipolar type. There is strong evidence his has low average to below average intellectual abilities. Historically he has struggled with hypersexual behaviors. He has lived in a [facility] but recently has been homeless. Historically he has refused to engage with mental health services and was discharged from [facility] services. Check in with patient: Patient reports he is feeling much better. 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 when asked about medication he states he might hold off on medication. He states he still has no where to go and does not know what to do since he is homeless. Clinician was notified by attending nurse that the patient report he is willing to try starting psychiatric medications and go to [facility] for treatment. [facility] confirms they current have bed availability. Patient is alert and orientated to person, place, time and circumstance. Mood is euthymic with smiling affect. Patient denies suicidal/homicidal ideations, intent, plan, or means. Delusional are absent and behaviour is congruent with an intact reality based presentation. Thought processes were organized and linear. Conversational speech was with in normal rate tone and prosody for this patient. Intellectual abilities were estimated within low average range. Attention and focus were fair. Insight, judgment, and impulse control were fair. Patient appeared physically healthier; he is well groomed and has noted weight gain. Patient has a noted tremor in hands. 295.70 (F25.0) Schizoaffective Disorder, Bipolar Type by history 799.59 (R41.9) Unspecified Neurocognitive Disorder Patient's presenting symptoms are similar to that of a neurocognitive disorder and cause clinically significant distress in all domains of his life At this time and in this setting (ER) there is not enough information to make a more specific diagnosis (head CT suggestive of age related involutional changes) Impression/Plan:Patient is cleared from acute psychiatric services. Patient does not meet IVC criteria as he denies any thought of wanting to harm himself or other and is not demonstrating any behaviours of responding to internal stimuli. Patient is reporting he would like to start psychiatric medications(he has been off medications for years now). [facility] has voluntary beds available. Patient is recommended to follow through with voluntary placement to restart medications. He is then encouraged to follow up with outpatient mental health services. Dr. Null was consulted on the care and management of this p atient; attending physician is in agreement with recommendations and disposition.
--- NOTE | 2019-07-19 10:50 | EKG REPORT ---
SEVERITY:- BORDERLINE ECG - SINUS RHYTHM BORDERLINE T ABNORMALITIES, INFERIOR LEADS : Confirmed by: Vikash Javier 19-Jul-2019 10:49:14
[2019-07-19 12:33] VITALS: BP 149/87
== END 2019-07-19 12:31 | disposition home or self-care (01) ==
LOC: ER 14:12
DX: F25.0 Schizoaffective disorder, bipolar type (principal); Z59.0 Homelessness; R25.1 Tremor, unspecified; R53.1 Weakness; F41.9 Anxiety disorder, unspecified; R06.02 Shortness of breath
CPT/HCPCS: 93005; 99285; 96372; 36415; 80307 ×4; 87070; 81001; 93010; J2060

== ENCOUNTER 2019-07-19 13:09 | Emergency (ER) | payer MEDICARE ==
[2019-07-19 14:28] VITALS: BP 163/86
--- NOTE | 2019-07-19 15:43 | ER Document Report ---
HPI - HPI Time Seen by Provider: 07/19/19 14:17 Pain Level: 0 Notes: 64-year-old male patient presenting to the emergency department after just being discharged from the emergency department. Apparently there was some miscommunication, patient was medically cleared and was supposed to go to the [facility] facility. He was walked longterm by 1 of our staff members and that the patient went outside of [facility] and sat down at a picnic table but did not formally check in. By the time patient tried to check in he states they have given away his bed. Per our mental health team N[facility], she states that she spoke with them and they should have a bed available for him in the next 1 to 2 hours. No need for new labs. Patient denies any acute complaints at this time. - REPRODUCTIVE Reproductive: DENIES: : Past Medical History - General Information source: Patient - Social History Smoking Status: Never Smoker Chew tobacco use (# tins/day): No Frequency of alcohol use: None Drug Abuse: None Family History: Hypertension - Negative for premature coronary artery disease or sudden cardiac in the immediate family members Patient has homicidal ideation: No - Past Medical History Cardiac Medical History: Reports: Hx Hypertension Pulmonary Medical History: Denies: Hx COPD Neurological Medical History: Denies: Hx Seizures Renal/ Medical History: Reports: Hx Kidney Stones. Denies: Hx Peritoneal Dialysis Psychiatric Medical History: Reports: Hx Bipolar Disorder, Hx Depression, Hx Schizoaffective Disorder Denies: Hx Schizophrenia Past Surgical History: Reports: Hx Cholecystectomy, Hx Kidney (Renal Surgery) - Immunizations Hx Diphtheria, Pertussis, Tetanus Vaccination: No Vertical Provider Document - CONSTITUTIONAL Notes: PHYSICAL EXAMINATION: GENERAL: Well-appearing, well-nourished and in no acute distress. HEAD: Atraumatic, normocephalic. EYES: Pupils equal round extraocular movements intact, conjunctiva are normal. ENT: Nares patent NECK: Normal range of motion LUNGS: No respiratory distress Musculoskeletal: Normal range of motion NEUROLOGICAL: Normal speech, normal gait. PSYCH: Normal mood, normal affect. SKIN: Warm, Dry, normal turgor, no rashes or lesions noted. - INFECTION CONTROL TRAVEL OUTSIDE OF THE [place] IN LAST 30 DAYS: No Course - Re-evaluation Re-evalutation: Patient directed to the [facility] sub-waiting area where he will relax for the next 1 to 2 hours while we wait on his bed open up at [facility]. Patient verbalized understanding and agreement with this plan. N[facility], mental health called to clarify situation at [facility], they will have a bed ready for him in a few hours. We will start him back on his Depakote and BuSpar. Prescriptions placed. - Vital Signs Vital signs: Temp Pulse Resp BP Pulse Ox 98.4 F 88 18 163/86 H 96 07/19/19 14:27 07/19/19 14:27 07/19/19 14:27 07/19/19 14:27 07/19/19 14:27 Discharge - Discharge Clinical Impression: Homeless, Anxiety Condition: Stable Disposition: HOME, SELF-CARE Additional Instructions: There is an in the emergency department while awaiting bed placement at [facility] facility. A copy of your labs is with your discharge instructions. A copy of your medications were sent electronically to your pharmacy. Return to the emergency department for any new or life-threatening complaints. Prescriptions: Buspirone HCl [Buspar 10 mg Tablet] 5 mg PO BID #15 tablet Divalproex Sodium [Depakote] 500 mg PO BID #30 tablet.
== END 2019-07-19 19:11 | disposition home or self-care (01) ==
LOC: ER 13:09
DX: F41.9 Anxiety disorder, unspecified (principal); Z59.0 Homelessness; I10 Essential (primary) hypertension
CPT/HCPCS: 99283

== ENCOUNTER 2019-07-25 19:20 | Emergency (ER) | payer MEDICARE ==
[2019-07-25 19:27] VITALS: BP 154/87
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
[2019-07-25 20:56] LABS: ABSOLUTE BASOPHILS # (AUTO) 0.1 10^3/uL (0.0-0.2); ABSOLUTE EOSINOPHILS # (AUTO) 0.2 10^3/uL (0.0-0.6); ABSOLUTE LYMPHOCYTES (AUTO) 1.1 10^3/uL (0.5-4.7); ABSOLUTE MONOCYTES (AUTO) 1.2 10^3/uL (0.1-1.4); ABSOLUTE NEUT (AUTO) 7.8 10^3/uL (1.7-8.2); BASOPHILS % (AUTO) 0.8 % (0-2); HEMATOCRIT 42.1 % (37.9-51.0); HEMOGLOBIN 14.7 g/dL (13.5-17.0); LYMPHOCYTES % (AUTO) 10.4 % (13-45); MEAN CORPUSCULAR HEMOGLOBIN 32.2 pg (27.0-33.4); MEAN CORPUSCULAR VOLUME 92 fl (80-97); MONOCYTES % (AUTO) 11.2 % (3-13); PLATELET COUNT 241 10^3/uL (150-450); RED BLOOD COUNT 4.58 10^6/uL (4.35-5.55); RED CELL DISTRIBUTION WIDTH 14.5 % (11.5-14.0); SEGMENTED NEUTROPHILS % (AUTO) 75.6 % (42-78); TOTAL CELLS COUNTED % (AUTO) 100 %; WHITE BLOOD COUNT 10.3 10^3/uL (4.0-10.5)
[2019-07-25 21:14] LABS: APPEARANCE,URINE SLIGHTLY-CLOUDY; BILIRUBIN,URINE NEGATIVE (NEGATIVE); COLOR,URINE YELLOW; GLUCOSE, URINE NEGATIVE (NEGATIVE); KETONES,URINE NEGATIVE (NEGATIVE); LEUKOCYTE ESTERASE,URINE NEGATIVE (NEGATIVE); NITRITE,URINE NEGATIVE (NEGATIVE); PROTEIN,URINE NEGATIVE (NEGATIVE); URINE SPECIFIC GRAVITY 1.021; UROBILINOGEN,URINE NEGATIVE mg/dL (<2.0)
[2019-07-25 21:15] LABS: ALBUMIN 4.6 g/dL (3.5-5.0); ALKALINE PHOSPHATASE 107 U/L (38-126); ANION GAP 11 (5-19); ASPARTATE AMINO TRANSFERASE 58 U/L (17-59); BILIRUBIN,TOTAL 0.6 mg/dL (0.2-1.3); BLOOD UREA NITROGEN 23 mg/dL (7-20); CALCIUM 9.8 mg/dL (8.4-10.2); CARBON DIOXIDE 21 mmol/L (22-30); CHLORIDE 100 mmol/L (98-107); CREATINE KINASE 1550 U/L (55-170); GLUCOSE 118 mg/dL (75-110); POTASSIUM 3.8 mmol/L (3.6-5.0)
[2019-07-25 21:19] LABS: ACETAMINOPHEN < 10 ug/mL (10-30); ALCOHOL < 10 mg/dL (NONE DETECTED); SALICYLATE < 1.0 mg/dL (2.0-20.0)
[2019-07-25 21:24] LABS: URINE AMPHETAMINES SCREEN NEGATIVE; URINE BARBITURATES SCREEN NEGATIVE; URINE BENZODIAZEPINES SCREEN NEGATIVE; URINE COCAINE SCREEN NEGATIVE; URINE MARIJUANA (THC) SCREEN NEGATIVE; URINE METHADONE SCREEN NEGATIVE; URINE PHENCYCLIDINE SCREEN NEGATIVE
[2019-07-25] MEDS ORDERED: NORMAL SALINE 1000 ML 1,000 ML IV ONE (21:34)
--- NOTE | 2019-07-25 21:44 | EKG REPORT ---
SEVERITY:- ABNORMAL ECG - SINUS RHYTHM CONSIDER LEFT VENTRICULAR HYPERTROPHY BORDERLINE T ABNORMALITIES, INFERIOR LEADS : Confirmed by: Alisson Andrade MD 25-Jul-2019 21:43:56
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
== END 2019-07-25 23:00 | disposition home or self-care (01) ==
LOC: ER 19:20
DX: F22 Delusional disorders (principal); S89.90XA Unspecified injury of unspecified lower leg, initial encounter; X58.XXXA Exposure to other specified factors, initial encounter; M79.651 Pain in right thigh; M79.652 Pain in left thigh; Z59.0 Homelessness; I10 Essential (primary) hypertension
CPT/HCPCS: 93005; 99285; 96360; 36415; 80307 ×4; 82550; 85025; 80053; 81001; 93010; J7030

== ENCOUNTER 2019-11-09 13:00 | Emergency (ER) | payer MEDICARE, OTHER ==
[2019-11-09 13:08] VITALS: BP 166/90
--- NOTE | 2019-11-09 13:16 | ER Document Report ---
ED Medical Screen (RME) - General Chief Complaint: Leg Swelling Stated Complaint: LEG SWELLING Time Seen by Provider: 11/09/19 13:07 TRAVEL OUTSIDE OF THE [place] IN LAST 30 DAYS: No - HPI Notes: 11/09/19 13:15 64-year-old male with history of leg edema and elevated blood pressure to the emergency department from longterm for further evaluation of uncontrolled high blood pressure and lower extremity edema. Patient also states that he has chest pain. He is unable to give a lot of information because he is tangential in his speech and not linear. He states that is been going on for years. He is on lisinopril and HCTZ at the longterm. He has noted bilateral lower extremity edema. I performed a brief medical screening exam on the patient determined that the patient needs further evaluation and management by main side provider. I have placed initial orders to help expedite care. - Related Data Allergies/Adverse Reactions: No Known Allergies Allergy (Verified 07/18/19 14:17) Home Medications: lisinopril, hctz Past Medical History - Past Medical History Cardiac Medical History: Reports: Hx Hypertension Pulmonary Medical History: Denies: Hx COPD Neurological Medical History: Denies: Hx Seizures Renal/ Medical History: Reports: Hx Kidney Stones. Denies: Hx Peritoneal Dialysis Psychiatric Medical History: Reports: Hx Bipolar Disorder, Hx Depression, Hx S chizoaffective Disorder Denies: Hx Schizophrenia Past Surgical History: Reports: Hx Cholecystectomy, Hx Kidney (Renal Surgery) - Immunizations Hx Diphtheria, Pertussis, Tetanus Vaccination: No Physical Exam - Vital signs Vitals: Temp Pulse Resp BP Pulse Ox 97.7 F 73 20 166/90 H 99 11/09/19 13:07 11/09/19 13:07 11/09/19 13:07 11/09/19 13:07 11/09/19 13:07 Course - Vital Signs Vital signs: Temp Pulse Resp BP Pulse Ox 97.7 F 73 20 166/90 H 99 11/09/19 13:11/09/19 13:11/09/19 13:07 11/09/19 13:07 11/09/19 13:07
[2019-11-09 13:48] LABS: APPEARANCE,URINE CLEAR; BILIRUBIN,URINE NEGATIVE (NEGATIVE); COLOR,URINE COLORLESS; GLUCOSE, URINE NEGATIVE (NEGATIVE); KETONES,URINE NEGATIVE (NEGATIVE); LEUKOCYTE ESTERASE,URINE NEGATIVE (NEGATIVE); NITRITE,URINE NEGATIVE (NEGATIVE); PROTEIN,URINE NEGATIVE (NEGATIVE); URINE SPECIFIC GRAVITY 1.001; UROBILINOGEN,URINE NEGATIVE mg/dL (<2.0)
--- NOTE | 2019-11-09 13:50 | RADIOLOGY REPORT (SQ) ---
EXAM DESCRIPTION: CHEST SINGLE VIEW IMAGES COMPLETED DATE/TIME: 11/09/2019 1:28 pm REASON FOR STUDY: leg swelling, chest pain COMPARISON: 07/18/2019 FINDINGS: One-view chest AP portable upright. Interstitial pattern in the lungs is fairly similar, no progression. No developing consolidation or nodules or masses. No pneumothorax allowing for skin fold over the le ft apex. Stable cardiomediastinal silhouette. TECHNICAL DOCUMENTATION: JOB ID: [id number] Reading location - IP/workstation name: [email or web address]
[2019-11-09 13:52] LABS: ABSOLUTE EOSINOPHILS # (AUTO) 0.2 10^3/uL (0.0-0.6); ABSOLUTE LYMPHOCYTES (AUTO) 1.3 10^3/uL (0.5-4.7); ABSOLUTE MONOCYTES (AUTO) 0.6 10^3/uL (0.1-1.4); ABSOLUTE NEUT (AUTO) 2.6 10^3/uL (1.7-8.2); BASOPHILS % (AUTO) 0.7 % (0-2); EOSINOPHILS % (AUTO) 3.2 % (0-6); HEMATOCRIT 39.4 % (37.9-51.0); HEMOGLOBIN 13.9 g/dL (13.5-17.0); LYMPHOCYTES % (AUTO) 27.1 % (13-45); MEAN CORPUSCULAR HEMOGLOBIN 30.9 pg (27.0-33.4); MEAN CORPUSCULAR HGB CONC 35.1 g/dL (32.0-36.0); MEAN CORPUSCULAR VOLUME 88 fl (80-97); MONOCYTES % (AUTO) 13.5 % (3-13); PLATELET COUNT 217 10^3/uL (150-450); RED BLOOD COUNT 4.49 10^6/uL (4.35-5.55); RED CELL DISTRIBUTION WIDTH 13.5 % (11.5-14.0); SEGMENTED NEUTROPHILS % (AUTO) 55.5 % (42-78); TOTAL CELLS COUNTED % (AUTO) 100 %; WHITE BLOOD COUNT 4.8 10^3/uL (4.0-10.5)
[2019-11-09 13:54] LABS: INTERNATIONAL RATION (INR) 1.01; PROTHROMBIN TIME 13.5 SEC (11.4-15.4)
[2019-11-09 14:00] LABS: ALBUMIN 4.5 g/dL (3.5-5.0); ALKALINE PHOSPHATASE 94 U/L (38-126); ANION GAP 11 (5-19); ASPARTATE AMINO TRANSFERASE 35 U/L (17-59); BILIRUBIN,DIRECT 0.2 mg/dL (0.0-0.4); BILIRUBIN,TOTAL 0.6 mg/dL (0.2-1.3); BLOOD UREA NITROGEN 12 mg/dL (7-20); CALCIUM 9.4 mg/dL (8.4-10.2); CARBON DIOXIDE 25 mmol/L (22-30); CHLORIDE 89 mmol/L (98-107); GLUCOSE 104 mg/dL (75-110); TOTAL PROTEIN 7.4 g/dL (6.3-8.2)
[2019-11-09 14:01] LABS: PARTIAL THROMBOPLASTIN TIME 39.1 SEC (23.5-35.8)
[2019-11-09 14:12] LABS: NT PRO BNP 196 pg/mL (<125)
[2019-11-09 14:13] LABS: TROPONIN I < 0.012 ng/mL
--- NOTE | 2019-11-09 15:49 | ER Document Report ---
ED General - General Chief Complaint: Leg Swelling Stated Complaint: LEG SWELLING Time Seen by Provider: 11/09/19 13:07 Notes: Patient presents with leg swelling. Chronic. No shortness of breath or cough. History of hypertension diuretic use and peripheral edema Denies chest pain Patient is a prisoner and I was called to the bedside initially because he was masturbating in front of a nurse. He has been verbally and physically abusive to staff during this ED visit. TRAVEL OUTSIDE OF THE [place] IN LAST 30 DAYS: No - Related Data Allergies/Adverse Reactions: No Known Allergies Allergy (Verified 07/18/19 14:17) Home Medications: lisinopril, hctz Past Medical History - General Information source: Patient - Social History Smoking Status: Unknown if Ever Smoked Family History: Reviewed & Not Pertinent, Hypertension - Negative for premature coronary artery disease or sudden cardiac in the immediate family members - Past Medical History Cardiac Medical History: Reports: Hx Hypertension Pulmonary Medical History: Denies: Hx COPD Neurological Medical History: Denies: Hx Seizures Renal/ Medical History: Reports: Hx Kidney Stones. Denies: Hx Peritoneal Dialysis Psychiatric Medical History: Reports: Hx Bipolar Disorder, Hx Depression, Hx Schizoaffective Disorder Denies: Hx Schizophrenia Past Surgical History: Reports: Hx Cholecystectomy, Hx Kidney (Renal Surgery) - Immunizations Hx Diphtheria, Pertussis, Tetanus Vaccination: No Review of Systems - Review of Systems Notes: REVIEW OF SYSTEMS GEN: Denies fever, chills, weight loss ENT: Denies sore throat, nasal discharge, ear pain EYES: Denies blurry vision, eye pain, discharge CV: Denies chest pain, palpitations, edema RESP: Denies cough, shortness of breath, wheezing GI: Denies abdominal pain, nausea, vomiting, diarrhea MSK: Leg swelling a, SKIN: Denies rash, skin lesions LYMPH: Denies swollen glands/lymph nodes NEURO: Denies headache, focal weakness or numbness, dizziness PSYCH: Denies depression, suicidal or homicidal ideation PHYSICAL EXAMINATION General: No acute distress, well-nourished Head: Atraumatic, normocephalic ENT: Mouth normal, oropharynx moist, no exudates or tonsillar enlargement Eyes: Conjunctiva normal, pupils equal, lids normal Neck: No JVD, supple, no guarding CVS: Normal rate, regular rhythm, no murmurs Resp: No resp distress, equal and normal breath sounds bilaterally GI: Nondistended, soft, no tenderness to palpation, no rebound or guarding Ext: 1+ pitting edema bilaterally Back: No CVA or midline TTP Skin: No rash, warm Lymphatic: No lymphadeopathy noted Neuro: Awake, alert. Face symmetric. GCS 15. Physical Exam - Vital signs Vitals: Temp Pulse Resp BP Pulse Ox 97.7 F 73 20 166/90 H 99 11/09/19 13:07 11/09/19 13:07 11/09/19 13:11/09/19 13:07 11/09/19 13:07 Course - Re-evaluation Re-evalutation: 11/09/19 23:10 Patient presents with symptomatic peripheral edema no signs of hypoxia or florid CHF, chronic hyponatremia no other lab abnormalities. The patient is a danger to staff and is being actively restrained by police. He does not meet criteria for admission does not appear to have an acute CHF exacerbation and appears volume neutral. He urinated several bottles in the ED. I am going to ask him to hold his Kyleigh thiazide and have him reevaluated by the intermediate medical staff in a few days but I do not think he requires admission. I have discussed with the patient there likely diagnosis, aftercare plan, follow-up plans and my usual and customary return precautions. They verbalized understanding of this. Discharge - Vital Signs Vital signs: Temp Pulse Resp BP Pulse Ox 97.7 F 73 20 166/90 H 99 11/09/19 13:07 11/09/19 13:07 11/09/19 13:07 11/09/19 13:07 11/09/19 13:07 - Laboratory Result Diagrams: 11/09/19 13:30 11/09/19 13:30 Laboratory results interpreted by me: 11/09/19 11/09/19 11/09/19 13:30 13:30 13:30 Coffee % (Auto) 13.5 H APTT Sodium 125.1 L Chloride 89 L NT-Pro-B Natriuret Pep 196 H 11/09/19 13:30 Coffee % (Auto) APTT 39.1 H Sodium Chloride NT-Pro-B Natriuret Pep - Diagnostic Test Radiology reviewed: Image reviewed, Reports reviewed - EKG Interpretation by Hi EKG shows normal: Sinus rhythm Rate: Normal Rhythm: NSR When compared to previous EKG there are: Previous EKG unavailable Discharge - Discharge Clinical Impression: Chronic hyponatremia Condition: Good Disposition: HOME, SELF-CARE Instructions: Congestive Heart Failure ([facility]) Additional Instructions: Please stop the patient's hydrochlorothiazide Please limit sodium intake. Please limit fluid intake, to 1500 mL/day Limit free water intake Follow-up primary care within 5 to 10 days Patient is medically cleared for incarceration based on ED provider evaluation
--- NOTE | 2019-11-10 08:51 | EKG REPORT ---
SEVERITY:- NORMAL ECG - SINUS BRADYCARDIA LVH : Confirmed by: Matthew Aguero MD 10-Nov-2019 08:50:14
== END 2019-11-09 16:04 | disposition home or self-care (01) ==
LOC: ER 13:00
DX: E87.1 Hypo-osmolality and hyponatremia (principal); M79.89 Other specified soft tissue disorders; I10 Essential (primary) hypertension; Z79.899 Other long term (current) drug therapy
CPT/HCPCS: 36415; 71045; 80053; 81001; 83880; 84484; 85025; 85610; 85730; 93005; 93010; 99285

== ENCOUNTER 2019-11-14 16:51 | Emergency (ER) | payer MEDICARE ==
[2019-11-14 16:59] VITALS: BP 165/99
--- NOTE | 2019-11-14 17:16 | ER Document Report ---
ED General - General Stated Complaint: HIGH BLOOD PRESSURE Time Seen by Provider: 11/14/19 17:06 TRAVEL OUTSIDE OF THE [place] IN LAST 30 DAYS: No - HPI Patient complains to provider of: Wanting to go to [facility] or [facility]. 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 Tells me of pain all over and peeing blood but then mostly wants to go to [place] or [facility] for Depression. Family member about a month ago. He is no distress at this time and I feel his history is not reliable at this time. - Related Data Allergies/Adverse Reactions: No Known Allergies Allergy (Verified 07/18/19 14:17) Past Medical History - Social History Smoking Status: Unknown if Ever Smoked Family History: Reviewed & Not Pertinent, Hypertension - Negative for premature coronary artery disease or sudden cardiac in the immediate family members - Past Medical History Cardiac Medical History: Reports: Hx Hypertension Pulmonary Medical History: Denies: Hx COPD Neurological Medical History: Denies: Hx Seizures Renal/ Medical History: Reports: Hx Kidney Stones. Denies: Hx Peritoneal Dialysis Psychiatric Medical History: Reports: Hx Bipolar Disorder, Hx Depression, Hx Schizoaffective Disorder Denies: Hx Schizophrenia Past Surgical History: Reports: Hx Cholecystectomy, Hx Kidney (Renal Surgery) - Immunizations Hx Diphtheria, Pertussis, Tetanus Vaccination: No Review of Systems - Review of Systems Constitutional: See HPI, Fever, Weakness EENT: See HPI, Blurred vision, Ear pain Cardiovascular: See HPI, Chest pain, Heart racing Respiratory: See HPI, Cough, Hurts to breathe, Short of breath Gastrointestinal: See HPI, Abdominal pain Genitourinary: See HPI, Hematuria Male Genitourinary: See HPI, Other - hematuria Skin: See HPI Hematologic/Lymphatic: See HPI, Easy bruising Neurological/Psychological: See HPI, Depression Physical Exam - Vital signs Vitals: Temp Pulse Resp BP Pulse Ox 98.4 F 64 18 165/99 H 100 11/14/19 16:58 11/14/19 16:58 11/14/19 16:58 11/14/19 16:58 11/14/19 16:58 Interpretation: Normal - General General appearance: Appears well, Alert - HEENT Head: Normocephalic, Atraumatic Eyes: Normal - Respiratory Respiratory status: No respiratory distress Chest status: Nontender Breath sounds: Normal Chest palpation: Normal - Cardiovascular Rhythm: Regular Heart sounds: Normal auscultation Murmur: No - Abdominal Inspection: Normal Distension: No distension Bowel sounds: Normal Tenderness: Nontender - Back Back: Nontender - Extremities General upper extremity: Normal inspection, Nontender, Normal ROM, Normal temperature General lower extremity: Normal inspection, Nontender, Edema, Normal ROM, Normal temperature, Normal weight bearing, Other - mild erythma to legs. No: Ariel's sign - Neurological Neuro grossly intact: Yes Cognition: Normal [place] Coma Scale Eye Opening: Spontaneous [place] Coma Scale Verbal: Oriented Angie Coma Scale Motor: Obeys Commands Angie Coma Scale Total: 15 Speech: Normal Sensory: Normal - Psychological Associated symptoms: Normal affect, Normal mood - Skin Skin Temperature: Warm - mild redness lower ext. Skin Moisture: Dry Skin Color: Normal Course - Re-evaluation Re-evalutation: 11/14/19 17:14 MDM 64 year old male just here about 5 days ago and that chart including blood work is reviewed. He is in no distress, per my conversation with him has no acute medical condition and can follow up routinely. I discussed this with him. - Vital Signs Vital signs: Temp Pulse Resp BP Pulse Ox 98.4 F 64 18 165/99 H 100 11/14/19 16:58 11/14/19 16:58 11/14/19 16:58 11/14/19 16:58 11/14/19 16:58 Discharge - Discharge Clinical Impression: Malingerer Hypertension Qualifiers: Hypertension type: unspecified Qualified Code(s): I10 - Essential (primary) hypertension Condition: Stable Disposition: HOME, SELF-CARE Instructions: High Blood Pressure ([facility]), Edema, Peripheral ([facility]) Additional Instructions: Your blood pressure is a bit too high. Have it rechecked. Please return here for chest pain, shortness of breath or other problems or concerns. Have your urine checked 1st thing in the morning.
[2019-11-14] MEDS ORDERED: HYDRALAZINE HCL 25 MG TABLET PO ONE (17:18)
== END 2019-11-14 18:04 | disposition home or self-care (01) ==
LOC: ER 16:51
DX: Z76.5 Malingerer [conscious simulation] (principal); I10 Essential (primary) hypertension; R50.9 Fever, unspecified; R53.1 Weakness
CPT/HCPCS: 99283; A9270